=== PATIENT | male | born 1945 | race Caucasian/White ===

== ENCOUNTER 2022-03-01 10:50 | Outpatient (RCR) | payer MEDICARE, SELFPAY ==
--- NOTE | 2022-03-01 13:31 | PT.OPEX ---
PT [facility] [facility] Eval PT [facility] Outpatient Eval Start: 03/01/22 11:29 Freq: Status: Active Protocol: Document 03/01/22 13:16 CRISTI (Rec: 03/01/22 13:28 CRISTI [id number]) E-signed By Moe Nelson PT Physical Therapy Outpatient Evaluation Insurance Information Insurance Name Medicare B Medical Diagnosis Right hip OA Treating Diagnosis Right hip pain Decreased right hip mobility and strength Referring MD Urbina Subjective Subjective Pt. reports having progressive right hip OA with ongoing problems with pain and function. He is set up for a SHEFALI surgery on 03/09/22. He had a left SHEFALI prior and has done well with it. He lives with his in a multilevel home. He has a few step down to basement where his shower is. Bathroom is on 2nd floor but he will be using a beside commode to start with upon return home which went well with his left hip surgery. He has a shower chair, a cane and a walker at home. PMH includes COPD and a heart stent. Pain Comments mild/moderate Date of Surgery (If applicable) 03/09/22 Current Work Status Retired Preferred Name Axel Assessment Assessment/Impression Objectively, pt. demonstrates; ambulation with SE cane with mild limp currently; functional UE mobility and strength; limited right hip ROM due to OA; and decreased gluteal and quad strength. He will benefit from pre-op education on SHEFALI exercise protocol along with education in pre-op and post-op procedures including therapy program. Primary Functional Limitations walking, lifting, steps, squatting Plan of Care Rehabilitation Potential Excellent Physical Therapy Goals 1. Pt. will be independent with HEP for self maintenance in 8-12 weeks. 2. Pt. will demonstrate improved mobility and quad/ gluteal strength in 8-12 weeks . 3. Pt. will be able to ambulate without assistive device safely in 8-12 weeks. Coordination/Communication With Referral Source Treatment Plan/Direct Interventions Manual Therapy,Neuromuscular Re-ed,Self-Care/Home Management,Therapeutic Activities,Therapeutic Exercises Frequency/Duration 4-8 visits after re-evaluation following surgery on 03/09/22 . Patient Will Be Discharged From Therapy Independent w/HEP, Independently Progressing Evaluation Billing Complexity Low Certification Information Initial Certification Date 03/01/22 Ending Certification Date 05/24/22 Provider Signature Shows Agreement With POC & Medical Necessity Physician Signature & Date Requested Please Sign/Date Here Physician Comment/Change : Physician NPI Number #
== END 2022-04-30 14:28 | disposition home or self-care (01) ==
PROVIDERS: PCP Family Medicine; Visit Provider Orthopaedic Surgery
DX: M16.11 Unilateral primary osteoarthritis, right hip (principal); Z51.89 Encounter for other specified aftercare
CPT/HCPCS: 97110; 97161

== ENCOUNTER 2022-09-20 08:29 | Outpatient (CLI) | payer MEDICARE, OTHER, SELFPAY | END 2022-09-20 08:30 | disposition home or self-care (01) | PROVIDERS: PCP Family Medicine; Visit Provider Orthopaedic Surgery | DX: Z01.818 Encounter for other preprocedural examination (principal) | CPT/HCPCS: 36415; 86850; 86900; 86901 ==

== ENCOUNTER 2022-09-21 13:06 | Inpatient (IN) | payer MEDICARE, SELFPAY ==
[2022-09-21] VITALS (41 sets, daily range): BP systolic 95–150; BP diastolic 52–96; PULSE 58–88; RESP 12–21; TEMP 35.4–36.9; O2SAT 85–98; BMI 35.4
--- NOTE | 2022-09-21 | CRLHL7_ITS ---
For Patients: As a result of the Cures Act, medical imaging exams and procedure reports are released immediately into your electronic medical record. You may view this report before your referring provider. If you have questions, please contact your health care provider. Indication: Postop SHEFALI Technique: AP hip centered pelvis and lateral view right hip Findings/Impression: Hardware from a right total hip arthroplasty is in satisfactory position. Bone alignment is normal. No sign of acute fracture. Postop changes are within normal limits. Dictated by Robin Mohan MD @ 09/22/2022 11:38:42 AM (Electronically Signed)
[2022-09-21] MEDS: ACETAMINOPHEN 500 MG TABLET 1000 MG PO ×3 (08:03→22:38)
[2022-09-21] MEDS: CELECOXIB 200 MG CAPSULE PO (08:03)
[2022-09-21] MEDS: OXYCODONE (CR) 10 MG TAB.ER.12H PO (08:03)
[2022-09-21] MEDS: LACTATED RINGERS 1000 ML 1,000 ML 100 ML IV ×2 (08:05→10:46)
[2022-09-21] MEDS: MIDAZOLAM HCL 1 MG/ML inj IVP (08:10)
[2022-09-21] MEDS: fentaNYL 100 MCG/2 ML inj IVP (08:10)
--- NOTE | 2022-09-21 08:15 | CRLHL7_ITS ---
For Patients: As a result of the Cures Act, medical imaging exams and procedure reports are released immediately into your electronic medical record. You may view this report before your referring provider. If you have questions, please contact your health care provider. Indication: Hip replacement surgery Technique: AP hip fluoroscopic images. Fluoroscopy time 64.0 seconds. Findings/Impression: Hardware from a right total hip arthroplasty is in satisfactory position. Dictated by Robin Mohan MD @ 09/21/2022 11:03:19 AM (Electronically Signed)
--- NOTE | 2022-09-21 08:36 | SUR.PREOP ---
TIME?OUT:?0809 PT/RN/MDA?VERIFICATION?OF?SURGICAL?SITE,?PROCEDURE,?AND?CONSENT OBTAINED?PRIOR?TO?INVASIVE?PROCEDURE.
[2022-09-21] MEDS: CEFAZOLIN 2 GM INJ IVP (09:00)
[2022-09-21] MEDS: TRANEXAMIC ACID 100 MG/ML INJ 1000 MG IV (09:03)
--- NOTE | 2022-09-21 10:40 | P.ORPRC_ITS ---
Procedure Note Date of procedure: 09/21/22 Procedure: PREOPERATIVE DIAGNOSIS: Right hip osteoarthritis POSTOPERATIVE DIAGNOSIS: Right hip osteoarthritis NAME OF OPERATION: Right total hip arthroplasty SURGEON: Naseem Urbina MD HIGH MAN: Rebecca Marrero PA-C, Joan Trevino PA-C IMPLANTS: 1. [employer] Hubbell # 60 sector ingrowth cup 2. 36 x 60 +4 neutral polyethylene 3. Actis # 10 standard collared ingrowth stem 4. 36 + 1.5 cobalt chrome femoral head ANESTHESIA: General ESTIMATED BLOOD LOSS: 500 cc COMPLICATIONS: None SPECIMENS: None DRAINS: None PREOPERATIVE ANTIBIOTICS: Ancef 2 grams INDICATIONS: The patient is a 77-year-old with a longstanding history of severe, unrelenting right hip pain secondary to end-stage right hip osteoarthritis. Despite appropriate nonoperative management, including activity modification, use of an assist device, anti-inflammatories, [id number] pain medication, physical therapy and injections, they continue to have pain and disability. Operative intervention was offered. The risks, benefits and expected outcomes were discussed in detail. These included but were not limited to: Infection, bleeding, injury to blood vessel or nerve, venous thromboembolism. All questions were answered to their satisfaction. Use of an assistant media planner was necessary throughout the case for patient positioning and safety, soft tissue retraction and closure. PROCEDURE: The patient was placed supine on the [place] table. General anesthesia was administered. The assistant media planner made sure the patient was properly positioned. The right hip was prepped and draped in the usual sterile fashion. The image intensifier was brought in for a perfect AP pelvis and a perfect double tear drop AP view of each hip which were used for intraoperative templating with our fluoroscopic guide. An oblique incision was made 3 cm distal and 3 cm lateral to the anterior superior iliac spine. The assistant media planner retracted the soft tissues to protect them. Subcutaneous dissection was taken with electrocautery to the superficial fascia. The fascia was divided in line with the incision. Blunt dissection was carried medially to the tensor fascia brenda and sartorius interval. Deep dissection was carried with electrocautery. The circumflex vessels were cauterized and divided. The capsule was exposed and then divided in a T- fashion, tagged with #1 Ethibond sutures. Retractors were placed in the joint, held by the assistant media planner. The corkscrew was placed in the femoral head. The neck cut was made in the subcapital region. We made a second neck cut more distal. The napkin ring of bone was removed. The femoral head was removed intact. Acetabular retractors were placed, held by the assistant media planner. The labrum was sharply debrided. The capsule was released. The 43 mm reamer was used to the true medial wall. We then enlarged in 2 mm increments using the image intensifier for our reamer placement. We impacted the cup which had excellent purchase. We placed the hole eliminator and the polyethylene. Attention was then turned to the proximal femur. The limb was placed in 140 degrees of external rotation, maximum extension and adduction. A significant amount of time was spent releasing the capsule to allow us to deliver the femur into the wound and complete the femoral side safely. Retractors were held by the assistant media planner throughout the femoral preparation. The paper box cutter and canal finder were used. Broaches were used to a stable size. The calcar reamer was used. Trial components were placed. The hip was reduced and was found to be stable with appropriate soft tissue tension. Length and offset had been nicely restored using the image intensifier and our fluoroscopic guide. Trial components were removed. The stem was impacted. We placed the femoral head. Again, the hip was reduced and was found to be stable with appropriate soft tissue tension. Length and offset had been nicely restored. The assistant media planner did a three minute dilute Betadine solution soak. The assistant media planner irrigated the wound with 3 liters of normal saline via pulse lavage. The assistant media planner repaired the anterior capsule with a #1 Vicryl and our previously placed Ethibond sutures. The assistant media planner closed the fascia over the tensor fascia brenda with a #1 PDO Stratafix, subcutaneous tissues with 2-0 Vicryl, skin with a running 3-0 Stratafix and glue. A dry dressing was applied by the assistant media planner. Sponge and needle counts were correct x 2. The patient tolerated the procedure well; there were no apparent complications. They were awakened and extubated in the operating room, sent to the Post-Anesthesia Care Unit in satisfactory condition. PLAN: 1. The patient will be mobilized with physical therapy, weight-bearing as tolerates 2. Xarelto x 5 days then aspirin x 30 days will be used for DVT prophylaxis 3. The patient will be discharged once medically appropriate
--- NOTE | 2022-09-21 11:06 | W.PM.NB ---
Nerve Block Nerve Block Time Seen by Provider: 08:20 Date Seen: 09/21/22 Type of block requested by surgeon for post-operative analgesia: KIMBERLI/LFCN Side: right Time out performed: Yes Verification of patient name: Yes Verification of date of : Yes Site marking: site marked Name of person performing procedure: Sterling Continuous monitoring Was continuous monitoring of O2 sat, B/P, healthcare technician, recorded every 15 minutes?: Yes Procedure Checklist: sterile prep, needles and gloves Ultrasound guided. Images saved: Yes Medications given in 5ml increments after negative aspiration: Ropivicaine %: 0.5 mL: 30 Needle gauge: 20 Decadron (mg): 10 Precedex (mcg): 25 Patient tolerated procedure well: Yes Additional comments: Needle noted below psoas tendon needle noted adjacent to LFCN Block Charges Block Charge (with Pro Fee): Other Periph Nerve Block Use of Ultrasound Machine for Block: Yes- US Guidance/pain block
--- NOTE | 2022-09-21 11:07 | W.ANESCHARGE ---
Anesthesia Charges Start Date/Time Anesthesia Start Date: 09/21/22 Anesthesia Start Time: 08:50 Stop Date/Time Anesthesia Stop Date: 09/21/22 Anesthesia Stop Time: 12:06 Summary Extremes of Age - Over 70 or under 1: MDA
--- NOTE | 2022-09-21 12:31 | CRLHL7_ITS ---
For Patients: As a result of the Cures Act, medical imaging exams and procedure reports are released immediately into your electronic medical record. You may view this report before your referring provider. If you have questions, please contact your health care provider. INDICATION: Hypoxia. TECHNIQUE: Chest 1 views. COMPARISON: None. FINDINGS: Cardiovascular and mediastinum: Cardiomediastinal silhouette is within normal limits. Lungs and pleural spaces: Lungs are clear. No sign of pleural effusion. No pneumothorax. Bones and soft tissues: No significant findings. IMPRESSION: No acute cardiopulmonary process identified. Dictated by Aron Lopes MD @ 09/21/2022 1:48:30 PM (Electronically Signed)
[2022-09-21] MEDS: ALBUTEROL SULFATE 2.5 MG/3 ML VIAL.NEB NEB (12:41)
--- NOTE | 2022-09-21 13:27 | W.ANESCHARGE ---
Anesthesia Charges Start Date/Time Anesthesia Start Date: 09/21/22 Anesthesia Start Time: 08:50 Stop Date/Time Anesthesia Stop Date: 09/21/22 Anesthesia Stop Time: 12:06
--- NOTE | 2022-09-21 13:31 | REH.PT ---
PT POD0 eval held d/t pt staying in PACU on BiPAP.
[2022-09-21 13:57] LABS: Base Excess ABG 3.1 mmol/L (-3.0-3.0); Carboxyhemoglobin* 1.4 % (0.0-5.0); HCO3 ABG 33 mmol/L (21-28); Oxygen Saturation ABG 89 % (92-100); PO2 ABG 63.7 mmHG (80-105); TCO2 ABG 31 mmol/l (21-30)
[2022-09-21 14:02] LABS: ABG PCO2 77 mmHG (35-45); pH ABG 7.24 (7.35-7.45)
[2022-09-21] MEDS: FUROSEMIDE 10 MG/ML inj 20 MG IVP (14:02)
--- NOTE | 2022-09-21 14:12 | PM.IMCN1 ---
Date of Consult Patient: Mary Patient Consult date: 09/21/22 Requesting Physician: Orthopedics Primary Care Provider: Jack Mullen MD Consult Narrative Reason for consult: Postop respiratory failure Narrative: Axel Cotter is a 77 year old male with history of coronary disease and COPD who underwent right total hip arthroplasty performed by Dr. Urbina. There were no operative complications. Estimated blood loss of [address] Urbina is requested management of medical problems following surgery. Preop as he was sedated for surgery he was hypoventilating. In recovery after surgery patient was found to be hypoventilating and hypoxic. He was hard to arouse and received Narcan which was of no significant benefit. He was placed on BiPAP and I am seeing him in recovery for evaluation of respiratory failure. He has a history of coronary artery disease. He had a stent placed in his circumflex in 2007 associated with an inferior STEMI. He has COPD and is on Spiriva and DuoNebs and albuterol inhaler for this. He does not report any recent new respiratory problems but does report chronic exertional dyspnea as well as chronic fatigue and chronic sleepiness. He is known to snore and has never been evaluated for sleep apnea. Review of Systems Narrative: Longstanding fatigue, sleepiness and exertional dyspnea. No recent fever cough or chest pain. [facility] Medical History (Updated 09/21/22 @ 14:36 by Xavi Rose MD) ELISSA (obstructive sleep apnea) ?G47.33 - Obstructive sleep apnea (adult) (pediatric) (ICD-10) Hx of coronary angiogram ?Z98.890 - Other specified postprocedural states (ICD-10) Hypertension ?I10 - Essential (primary) hypertension (ICD-10) Heart attack ?I21.9 - Acute myocardial infarction, unspecified (ICD-10) Coronary artery disease ?I25.10 - Atherosclerotic heart disease of [place] coronary artery without angina pectoris (ICD-10) Depression ?F32.A - Depression, unspecified (ICD-10) COPD (chronic obstructive pulmonary disease) ?J44.9 - Chronic obstructive pulmonary disease, unspecified (ICD-10) Arthritis ?M19.90 - Unspecified osteoarthritis, unspecified site (ICD-10) Surgical History Hx of cataract extraction ?Z98.49 - Cataract extraction status, unspecified eye (ICD-10) H/O hand surgery ?Z98.890 - Other specified postprocedural states (ICD-10) H/O heart artery stent ?Z95.5 - Presence of coronary angioplasty implant and graft (ICD-10) 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) ?Z96.642 - Presence of left artificial hip joint (ICD-10) Family History Brother Parkinson disease Mother Colon cancer Stomach cancer Sister High blood pressure Father Myocardial infarction Social History Smoking Status: Former smoker What tobacco products do you use: cigarettes Smoking packs per day: 1 Smoking cigarettes per day: 20.0 Years smoked: 30 Smoking pack-years: 30.00 Smoking quit date/years: <= 15 years ago Do you use any of these nicotine containing products: None Second hand tobacco smoke exposure: No How often do you have a drink containing alcohol: never AUDIT-C Alcohol total score: 0 Non-prescribed substance use: denies use Caffeine: Yes (coffee, 1 cup/AM) service: Yes Meds Home Medications and Allergies Home Medications Medication Instructions Recorded Confirmed Type albuterol 90 mcg/actuation aerosol 2 spray inhalation Q4H PRN 12/04/21 09/21/22 History inhaler atorvastatin 80 mg tablet 80 mg PO HS 12/04/21 09/21/22 History nitroglycerin 0.4 mg sublingual 0.4 mg sublingual Q5M PRN 12/04/21 09/21/22 History tablet aspirin 81 mg tablet,delayed 81 mg PO DAILY 09/21/22 09/21/22 History release (Adult Aspirin Regimen) ipratropium 0.5 mg-albuterol 3 mg 3 ml inhalation QID PRN 09/21/22 09/21/22 History (2.5 mg base)/3 mL nebulization soln metoprolol tartrate 50 mg tablet 50 mg PO BID 09/21/22 09/21/22 History omeprazole magnesium 20 mg 20 mg PO DAILY 09/21/22 09/21/22 History tablet,delayed release (Prilosec OTC) tiotropium bromide 18 mcg capsule 1 cap inhalation DAILY 09/21/22 09/21/22 History with inhalation device (Spiriva with HandiHaler) Allergies Allergy/AdvReac Type Severity Reaction Status Date / Time No Known Drug Allergies Allergy Verified 09/21/22 07:06 Exam Narrative: Exam Narrative: Initially seen in PACU. On BiPAP. Sleepy. Hypoventilating. Arouses to voice but falls asleep immediately. BiPAP shows good tidal volumes when he does initiate of breath. Blood pressure and pulse are normal. Eyes normal. Respirations are clear to auscultation. No wheezing rales or rhonchi. He has diminished breath sounds in all lung chun. Cardiovascular: S1, S2, regular rate and rhythm. No murmur gallop or rub. Abdomen: Bowel sounds active. Abdomen is soft without tenderness or mass. Extremities without significant edema. Good peripheral perfusion. Const: Vital Signs, click to edit/add: Vital Signs - 24 hr 09/21/22 07:27 09/21/22 08:10 09/21/22 08:15 Temperature 98.0 F Pulse Rate 70 65 67 Pulse Rate [Left P ulse Oximeter] Respiratory Rate 16 16 16 Blood Pressure 150/83 H 127/96 H 136/88 Blood Pressure [Le ft Arm] Pulse Oximetry 94 94 85 L Oxygen Delivery Me thod Room Air Nasal Cannula Nasal Cannula Oxygen Flow Rate 2 2 Fraction of Inspir ed Oxygen 09/21/22 08:16 09/21/22 08:20 09/21/22 08:25 Temperature Pulse Rate 64 66 67 Pulse Rate [Left P ulse Oximeter] Respiratory Rate 12 12 Blood Pressure 127/88 124/88 Blood Pressure [Le ft Arm] Pulse Oximetry 93 93 98 Oxygen Delivery Me thod OxyMask OxyMask OxyMask Oxygen Flow Rate 10 10 10 Fraction of Inspir ed Oxygen 09/21/22 12:03 09/21/22 12:08 09/21/22 12:13 Temperature 97.9 F Pulse Rate 76 72 75 Pulse Rate [Left P ulse Oximeter] Respiratory Rate 12 12 12 Blood Pressure 121/72 125/66 110/55 L Blood Pressure [Le ft Arm] Pulse Oximetry 93 91 89 Oxygen Delivery Me thod BiPAP BiPAP BiPAP Oxygen Flow Rate Fraction of Inspir ed Oxygen 09/21/22 12:18 09/21/22 12:23 09/21/22 12:28 Temperature Pulse Rate 58 L 65 67 Pulse Rate [Left P ulse Oximeter] Respiratory Rate 12 12 12 Blood Pressure 125/69 125/69 120/57 L Blood Pressure [Le ft Arm] Pulse Oximetry 89 89 89 Oxygen Delivery Me thod BiPAP BiPAP BiPAP Oxygen Flow Rate Fraction of Inspir ed Oxygen 09/21/22 12:33 09/21/22 12:38 09/21/22 12:43 Temperature Pulse Rate 62 69 69 Pulse Rate [Left P ulse Oximeter] Respiratory Rate 12 12 12 Blood Pressure 113/52 L 121/74 115/71 Blood Pressure [Le ft Arm] Pulse Oximetry 89 89 89 Oxygen Delivery Me thod BiPAP BiPAP BiPAP Oxygen Flow Rate Fraction of Inspir ed Oxygen 09/21/22 12:48 09/21/22 12:53 09/21/22 12:56 Temperature Pulse Rate 64 64 Pulse Rate [Left P ulse Oximeter] Respiratory Rate 12 12 Blood Pressure 120/70 114/65 Blood Pressure [Le ft Arm] Pulse Oximetry 89 89 Oxygen Delivery Me thod BiPAP BiPAP Oxygen Flow Rate Fraction of Inspir ed Oxygen 09/21/22 12:58 09/21/22 13:03 09/21/22 13:08 Temperature Pulse Rate 65 61 66 Pulse Rate [Left P ulse Oximeter] Respiratory Rate 12 12 12 Blood Pressure 114/65 115/65 112/67 Blood Pressure [Le ft Arm] Pulse Oximetry 89 89 89 Oxygen Delivery Me thod BiPAP BiPAP BiPAP Oxygen Flow Rate Fraction of Inspir ed Oxygen 09/21/22 13:13 09/21/22 13:18 09/21/22 13:23 Temperature Pulse Rate 66 62 60 Pulse Rate [Left P ulse Oximeter] Respiratory Rate 12 12 12 Blood Pressure 117/73 114/70 107/68 Blood Pressure [Le ft Arm] Pulse Oximetry 89 90 90 Oxygen Delivery Me thod BiPAP BiPAP BiPAP Oxygen Flow Rate Fraction of Inspir ed Oxygen 09/21/22 13:28 09/21/22 14:05 Temperature 97.2 F L 95.8 F L Pulse Rate 62 Pulse Rate [Left P ulse Oximeter] 65 Respiratory Rate 12 14 Blood Pressure 110/66 Blood Pressure [Le ft Arm] 108/58 L Pulse Oximetry 92 89 Oxygen Delivery Me thod BiPAP BiPAP Oxygen Flow Rate Fraction of Inspir ed Oxygen Documenting provider has reviewed patient's vital signs: yes Assessment and Plan Assessment and plan (1) Ventilatory failure: Problem comment: Patient's ventilatory failure is likely a combination of factors. Patient likely has undiagnosed sleep apnea based on history and findings today. He has underlying COPD and medications received in surgery may cause respiratory depression as well. Narcan did not reverse this respiratory depression however. Postoperatively will need sleep study. Caution with opioid pain medicines. Monitoring in the hospital for recurrent ventilatory failure. Status: Acute (2) ELISSA (obstructive sleep apnea): Problem comment: Highly likely that sleep apnea is present. When he recovers from surgery he should have a sleep study. Status: Suspected (3) Coronary artery disease: Problem comment: Monitor for heart disease contributing to his respiratory failure Status: Acute (4) COPD (chronic obstructive pulmonary disease): Problem comment: Treat COPD with inhaled bronchodilators. Status: Acute (5) Osteoarthritis of right hip: Problem comment: [place] grade 3 right hip osteoarthritis Status: Chronic Plan Patient is admitted to the hospital for right hip arthroplasty and postoperative recovery. Admitted to CCU for ventilatory failure requiring new application of BiPAP. Treat COPD. Restrict oxygen to treat hypercapnia. Anticipate routine physical therapy. Caution with opioid pain medications causing respiratory depression.
[2022-09-21] MEDS: HYDROmorphone 0.5 mg/0.5 ml inj IVP (14:33)
[2022-09-21 15:18] LABS: HCO3 VBG 32 mmol/L (21-28); PCO2 VBG 53 mmHG (40-50); PO2 VBG 30.9 mmHG (25-47)
[2022-09-21 15:20] LABS: Basophils Absolute Auto 0.01 K/uL (0.00-0.30); Basophils Percent Auto 0.1 % (0.0-3.0); Hematocrit 41.2 % (37.0-53.0); Hemoglobin* 12.8 gm/dL (13.5-17.5); Lymphocytes Percent Auto 4.6 % (20-44); Mean Corpuscular HGB Conc 31 gm/dL (32-36); Mean Corpuscular Hemoglobin 31 pg (26-34); Mean Corpuscular Volume 99 fL (80-100); Monocytes Percent Auto 4.6 % (0.0-11.0); Neutrophils Percent Auto 89.7 % (42.0-72.0); Platelet Count* 196 K/uL (140-440); RDW Coefficient of Variation % 13.8 % (11.5-15.5); Red Blood Count 4.17 m/uL (4.30-5.90); White Blood Count* 9.56 K/uL (4.50-11.00)
[2022-09-21 15:24] LABS: Slide Review Reflex No
[2022-09-21] MEDS: OXYCODONE 5 MG TABLET PO ×2 (15:26→20:59)
[2022-09-21] MEDS: CEFAZOLIN 2 GM in 0.9 % SODIUM CHLORIDE Mini-bag 100 ML IVPB ×2 (15:27→23:51)
--- NOTE | 2022-09-21 15:53 | PC.NURSE ---
end of shift/. pt is a unit pt. went to pacu and brought pt back on Bi-pap. he was taken to ccu3. he is alert and orientated but sleepy. Iv is patent. dressing C/D/I/ active ice. pain was 0-7 he got 0.5 IVP Dilaudid and later 10 mg oxy after eating. teds and plexis are on. Carson was placed in pacu. Dr Rose was in to see. Tele shows NSR. BI-PAP is on except for eating, drinking so far. ABGs where done and Later VBG,s RT Mariusz was updated with results and we are to keep settings the same and will check blood gas in the am. and son are here and are loving and caring. he is more aware and alert the longer he has been wearing his Bi-pap. he is drinking with no problems. he is a fall risk and alarms are on. VSS. he is on 21% on Bi-pap If he needs o2 we are to call .
[2022-09-21 15:57] LABS: Troponin I* < 0.01 ng/mL (0.01-0.04)
[2022-09-21] MEDS: ATORVASTATIN CALCIUM 40 MG TABLET 80 MG PO (20:57)
[2022-09-21] MEDS: IPRAT-ALBUT 0.5-2.5 MG/3 ML NEB 1 NEB IH (20:57)
[2022-09-21] MEDS: METOPROLOL TARTRATE 50 MG TABLET PO (20:58)
[2022-09-21] MEDS: SENNOSIDES 1 TAB TABLET 2 TAB PO (20:58)
[2022-09-21] MEDS: SODIUM CHLORIDE 0.9 % (FLUSH) 10 ML SYRINGE 5 ML IVF (20:59)
--- NOTE | 2022-09-21 23:47 | PC.NURSE ---
Shift Note [id number]: Pt friendly and cooperative, able to verbalize needs. Couple of soft pressures 90's/60's, pt remains asymptomatic and able to stand and pivot to chair with assist x2. SpO2 97-99% on Bipap, pt tolerating well. He did request a break from wearing it this evening and MD okayed. SpO2 remained 88-91% on RA with occasional brief desaturations to 85% during conversation/eating. Pt diligent with IS and aerobika use while off Bipap, IS to 2500 with good technique. Increased coughing this evening with some intermittent thick, yellow sputum production. Pt able to expectorate independently. Denies pain. Surgical dressing C,D,&I with active ice in place.
[2022-09-22] VITALS (13 sets, daily range): BP systolic 104–142; BP diastolic 47–95; PULSE 54–71; RESP 16–20; TEMP 36.2–37; O2SAT 90–95
[2022-09-22] MEDS: LACTATED RINGERS 1000 ML 1,000 ML 75 ML IV ×2 (01:29→15:26)
[2022-09-22] MEDS: ACETAMINOPHEN 500 MG TABLET 1000 MG PO ×4 (04:11→22:58)
[2022-09-22] MEDS: OXYCODONE 5 MG TABLET PO ×5 (04:11→21:16)
--- NOTE | 2022-09-22 04:30 | PC.NURSE ---
PATIENT PLEASANT AND COOPERATIVE, ALERT AND ORIENTED, RESTING IN CHAIR, PATIENT OFF AND ON BIPAP THROUGHOUT NIGHT, PATIENT NEEDING BREAKS FROM THE MASK I HAVE A HEADACHE. RESOLVED WITH A BREAK FROM THE BIPAP MASK, OTHER BREAKS GIVEN FOR FOOD & WATER & PATIENT REQUEST, USING INCENTIVE SPIROMETER IND IN ROOM TO 2500 & NO COUGH NOTED AFTER USE, DRESSING TO RIGHT HIP CDI, ACTIVE ICE TO SITE, PEDAL PULSES PRESENT, TOLERATING REGULAR DIET REQUESTING A JELLO IN THE MIDDLE OF THE NIGHT, JAJA DIAMOND, TELE SHOWING NSR, RATING PAIN MINIMAL IN RIGHT HIP 0-1/10 BEING MANAGED WITH PRN OXYCODONE AND SCHEDULED TYLENOL.
[2022-09-22] MEDS: OMEPRAZOLE 20 MG CAPSULE DR PO (06:05)
[2022-09-22 07:06] LABS: HCO3 VBG 31 mmol/L (21-28); PCO2 VBG 48 mmHG (40-50); pH VBG 7.412 (7.32-7.43)
[2022-09-22 07:10] LABS: Basophils Percent Auto 0.1 % (0.0-3.0); Hematocrit 35.4 % (37.0-53.0); Hemoglobin* 11.4 gm/dL (13.5-17.5); Immature Granulocytes Pct Auto 0.2 %; Lymphocytes Percent Auto 10.6 % (20-44); Mean Corpuscular HGB Conc 32 gm/dL (32-36); Mean Corpuscular Hemoglobin 31 pg (26-34); Mean Corpuscular Volume 96 fL (80-100); Monocytes Percent Auto 9.1 % (0.0-11.0); Platelet Count* 198 K/uL (140-440); RDW Coefficient of Variation % 13.7 % (11.5-15.5)
[2022-09-22 07:18] LABS: Slide Review Reflex No
[2022-09-22 07:25] LABS: Potassium* 4.4 mmol/L (3.6-5.1); Sodium* 133 mmol/L (135-149)
[2022-09-22 07:28] LABS: Creatinine* 1.5 mg/dL (0.5-1.5); Estimated Glomerular Filt Rate 48 ml/min
[2022-09-22 07:29] LABS: Blood Urea Nitrogen* 31 mg/dL (7-30)
--- NOTE | 2022-09-22 08:32 | P.ORPN_ITS ---
Subjective Subjective Time Seen by Provider: 07:20 Date Seen: 09/22/22 Principal diagnosis: Status post right hip replacement Interval history: Axel is comfortable this morning. Post surgery he was hypo ventilating with CO2 retention. He has a history of COPD and likely sleep apnea. Ortho Exam Narrative Exam Narrative: Alert and oriented x3. Patient is in no acute distress. Converses without labored breathing. Hearing is grossly intact. Ambulates with a Walker. Examination of the right hip shows small bruise. Dressing is intact. No erythema or warmth or sign of infection. CMS is intact right lower extremity pain bilateral calves are soft and nontender. No foot drop. Good quad strength. Const Vital Signs, click to edit/add: Vital Signs - 24 hr 09/21/22 12:03 09/21/22 12:08 09/21/22 12:13 Temperature 97.9 F Pulse Rate 76 72 75 Pulse Rate [Left Pulse Oximeter] Respiratory Rate 12 12 12 Blood Pressure 121/72 125/66 110/55 L Blood Pressure [Left Arm] Pulse Oximetry 93 91 89 Oxygen Delivery Method BiPAP BiPAP BiPAP Oxygen Flow Rate Fraction of Inspired Oxygen 09/21/22 12:18 09/21/22 12:23 09/21/22 12:28 Temperature Pulse Rate 58 L 65 67 Pulse Rate [Left Pulse Oximeter] Respiratory Rate 12 12 12 Blood Pressure 125/69 125/69 120/57 L Blood Pressure [Left Arm] Pulse Oximetry 89 89 89 Oxygen Delivery Method BiPAP BiPAP BiPAP Oxygen Flow Rate Fraction of Inspired Oxygen 09/21/22 12:33 09/21/22 12:38 09/21/22 12:43 Temperature Pulse Rate 62 69 69 Pulse Rate [Left Pulse Oximeter] Respiratory Rate 12 12 12 Blood Pressure 113/52 L 121/74 115/71 Blood Pressure [Left Arm] Pulse Oximetry 89 89 89 Oxygen Delivery Method BiPAP BiPAP BiPAP Oxygen Flow Rate Fraction of Inspired Oxygen 09/21/22 12:48 09/21/22 12:53 09/21/22 12:56 Temperature Pulse Rate 64 64 Pulse Rate [Left Pulse Oximeter] Respiratory Rate 12 12 Blood Pressure 120/70 114/65 Blood Pressure [Left Arm] Pulse Oximetry 89 89 Oxygen Delivery Method BiPAP BiPAP Oxygen Flow Rate Fraction of Inspired Oxygen 09/21/22 12:58 09/21/22 13:03 09/21/22 13:08 Temperature Pulse Rate 65 61 66 Pulse Rate [Left Pulse Oximeter] Respiratory Rate 12 12 12 Blood Pressure 114/65 115/65 112/67 Blood Pressure [Left Arm] Pulse Oximetry 89 89 89 Oxygen Delivery Method BiPAP BiPAP BiPAP Oxygen Flow Rate Fraction of Inspired Oxygen 09/21/22 13:13 09/21/22 13:18 09/21/22 13:23 Temperature Pulse Rate 66 62 60 Pulse Rate [Left Pulse Oximeter] Respiratory Rate 12 12 12 Blood Pressure 117/73 114/70 107/68 Blood Pressure [Left Arm] Pulse Oximetry 89 90 90 Oxygen Delivery Method BiPAP BiPAP BiPAP Oxygen Flow Rate Fraction of Inspired Oxygen 09/21/22 13:28 09/21/22 13:50 09/21/22 14:00 Temperature 97.2 F L 95.8 F L 95.8 F L Pulse Rate 62 65 Pulse Rate [Left Pulse Oximeter] 65 Respiratory Rate 12 14 14 Blood Pressure 110/66 Blood Pressure [Left Arm] 108/58 L 108/63 Pulse Oximetry 92 91 Oxygen Delivery Method BiPAP BiPAP Room Air BiPAP Oxygen Flow Rate 0 0 Fraction of Inspired Oxygen 09/21/22 14:00 09/21/22 14:05 09/21/22 14:15 Temperature 95.8 F L Pulse Rate Pulse Rate [Left Pulse Oximeter] 60 65 59 L Respiratory Rate 14 18 Blood Pressure Blood Pressure [Left Arm] 108/58 L 104/53 L Pulse Oximetry 89 90 Oxygen Delivery Method BiPAP BiPAP Oxygen Flow Rate 0 Fraction of Inspired Oxygen 09/21/22 14:20 09/21/22 14:20 09/21/22 14:55 Temperature Pulse Rate 63 Pulse Rate [Left Pulse Oximeter] Respiratory Rate Blood Pressure Blood Pressure [Left Arm] Pulse Oximetry Oxygen Delivery Method Room Air BiPAP Oxygen Flow Rate Fraction of Inspired Oxygen 21 21 09/21/22 15:00 09/21/22 15:00 09/21/22 15:02 Temperature 96.3 F L Pulse Rate 58 L Pulse Rate [Left Pulse Oximeter] 77 59 L Respiratory Rate 20 20 Blood Pressure Blood Pressure [Left Arm] 103/65 Pulse Oximetry 88 Oxygen Delivery Method BiPAP Oxygen Flow Rate 0 Fraction of Inspired Oxygen 09/21/22 15:21 09/21/22 16:01 09/21/22 16:30 Temperature 96.3 F L 96.7 F L Pulse Rate Pulse Rate [Left Pulse Oximeter] 64 62 63 Respiratory Rate 20 17 21 Blood Pressure Blood Pressure [Left Arm] 99/66 107/77 95/67 Pulse Oximetry 86 L 96 94 Oxygen Delivery Method BiPAP BiPAP BiPAP Oxygen Flow Rate 0 0 0 Fraction of Inspired Oxygen 09/21/22 17:30 09/21/22 18:30 09/21/22 19:00 Temperature 97.6 F 97.8 F Pulse Rate Pulse Rate [Left Pulse Oximeter] 71 71 74 Respiratory Rate 20 20 20 Blood Pressure Blood Pressure [Left Arm] 121/72 110/81 Pulse Oximetry 93 96 Oxygen Delivery Method Room Air BiPAP Oxygen Flow Rate 0 Fraction of Inspired Oxygen 09/21/22 19:30 09/21/22 20:30 09/21/22 22:00 Temperature 98.2 F 98.4 F Pulse Rate Pulse Rate [Left Pulse Oximeter] 71 88 67 Respiratory Rate 20 20 20 Blood Pressure Blood Pressure [Left Arm] 124/65 117/94 H 113/62 Pulse Oximetry 97 90 91 Oxygen Delivery Method BiPAP Room Air Room Air Oxygen Flow Rate 0 0 0 Fraction of Inspired Oxygen 09/21/22 23:00 09/21/22 23:00 09/22/22 00:00 Temperature 97.9 F Pulse Rate 65 Pulse Rate [Left Pulse Oximeter] 61 Respiratory Rate 16 16 Blood Pressure Blood Pressure [Left Arm] 107/61 Pulse Oximetry 91 Oxygen Delivery Method Room Air Oxygen Flow Rate 0 Fraction of Inspired Oxygen 09/22/22 02:00 09/22/22 03:00 09/22/22 04:00 Temperature 97.9 F 97.8 F Pulse Rate Pulse Rate [Left Pulse Oximeter] 59 L 61 Respiratory Rate 16 16 16 Blood Pressure Blood Pressure [Left Arm] 104/47 L Pulse Oximetry 91 95 Oxygen Delivery Method Room Air Room Air Oxygen Flow Rate 0 Fraction of Inspired Oxygen 09/22/22 06:00 09/22/22 07:13 09/22/22 07:45 Temperature 97.8 F 97.8 F Pulse Rate 54 L Pulse Rate [Left Pulse Oximeter] 57 L 60 Respiratory Rate 20 20 Blood Pressure Blood Pressure [Left Arm] 112/71 132/75 Pulse Oximetry 92 92 Oxygen Delivery Method BiPAP Room Air BiPAP Oxygen Flow Rate 0 0 Fraction of Inspired Oxygen 21 21 09/22/22 07:45 Temperature Pulse Rate Pulse Rate [Left Pulse Oximeter] 60 Respiratory Rate 20 Blood Pressure Blood Pressure [Left Arm] Pulse Oximetry Oxygen Delivery Method Oxygen Flow Rate Fraction of Inspired Oxygen Assessment and Plan Assessment and plan (1) Ventilatory failure: Problem details: Patient's ventilatory failure is likely a combination of factors. Patient likely has undiagnosed sleep apnea based on history and findings today. He has underlying COPD and medications received in surgery may cause respiratory depre ssion as well. Narcan did not reverse this respiratory depression however. Postoperatively will need sleep study. Caution with opioid pain medicines. Monitoring in the hospital for recurrent ventilatory failure. Status: Acute (2) ELISSA (obstructive sleep apnea): Problem details: Highly likely that sleep apnea is present. When he recovers from surgery he should have a sleep study. Status: Suspected (3) Coronary artery disease: Problem details: Monitor for heart disease contributing to his respiratory failure Status: Acute (4) COPD (chronic obstructive pulmonary disease): Problem details: Treat COPD with inhaled bronchodilators. Status: Acute (5) Status post total hip replacement, right: Status: Acute Plan Plan for discharge is today to home if they meet discharge criteria. he may stay another night due to observation of CO2 retention. Caution with narcotics. DVT prophylaxis includes Xarelto 10 mg daily for total of 5 days, then aspirin 81 mg twice daily for 30 days, Tobias stockings x1 month may remove for 1 hr per day, frequent ambulation Remove dressing 1 week. Observe wound and phone Orthopedics with any questions or concerns Use Ice on operative hip unrestricted. Return to clinic in 1 week with PA for a wound check Return to clinic in [address] Urbina Minimize narcotic use. Wean off and discontinue soon as possible. Activities as tolerated. No strenuous activity. Attend outpt PT
[2022-09-22] MEDS: IPRAT-ALBUT 0.5-2.5 MG/3 ML NEB 1 NEB IH ×3 (08:52→21:15)
[2022-09-22] MEDS: SENNOSIDES 1 TAB TABLET 2 TAB PO ×2 (08:53→21:15)
[2022-09-22] MEDS: METOPROLOL TARTRATE 50 MG TABLET PO ×2 (08:53→21:16)
[2022-09-22] MEDS: RIVAROXABAN 10 MG TABLET PO (08:53)
--- NOTE | 2022-09-22 15:05 | PM.IMPN1 ---
Progress Note: A&P Assessment and plan (1) Ventilatory failure: Problem details: Ventilatory failure postoperatively due to combination of anesthesia and sedation along with CO2 retention related to COPD and probable sleep apnea. Managed with pressure support with BiPAP. Not requiring oxygen. Now resolved. Will observe to see if he can breathe well overnight without requiring BiPAP or CPAP. Avoid supplemental oxygen. Status: Acute (2) ELISSA (obstructive sleep apnea): Problem details: Highly likely that sleep apnea is present. When he recovers from surgery he should have a sleep study. Status: Suspected (3) Coronary artery disease: Problem details: Monitor for heart disease contributing to his respiratory failure. No symptoms of coronary disease Status: Acute (4) COPD (chronic obstructive pulmonary disease): Problem details: Treat COPD with inhaled bronchodilators. Does not appear to be a COPD exacerbation Status: Acute (5) Status post total hip replacement, right: Problem details: Doing fairly well Status: Acute Plan Continue in hospital for 1 more day of observation in light of ongoing need for opioid pain medicines in the context of ventilatory failure and CO2 narcosis yesterday. I think he can be safely discharged to home tomorrow if he is able to manage at night without CPAP or BiPAP Time Spent With Patient Total time spent: Total time spent today is 40 minutes, 30 minutes in coordination of care discussing with patient, his and other providers management of ventilatory failure, sleep apnea and postoperative care after hip surgery Subjective Date Seen: 09/22/22 Interval history: 77-year-old male admitted to the hospital for right total hip arthroplasty. Procedures performed without complications. He did however have complications related to anesthesia. Postoperatively he was hypoventilating and quite sedated. This was felt to be due to CO2 narcosis. Likely a combination of sedation from anesthesia plus undiagnosed sleep apnea and underlying COPD cause this. This was managed with BiPAP and stopping supplemental oxygen. With this he had return to normal mental status. Overnight he did use the BiPAP for much the night and slept fairly well. This morning he is off of BiPAP and breathing without difficulties. His blood gas has corrected his acidosis as well. Patient describes significant history of daytime sleepiness and fatigue. notes that he does have snoring. He is strongly urged to get outpatient sleep evaluation for this. He reports his pain is fairly well controlled. he has not yet had physical therapy to evaluate his mobility. Exam Narrative: Exam Narrative: He is alert and appears in no distress. Breathing is unlabored. He has diminished breath sounds without wheezing rales or rhonchi. Cardiovascular: S1, S2, regular rate and rhythm. Abdomen is soft without tenderness or mass. Extremities without edema. Hip is with minimal bruising. Const: Vital Signs, click to edit/add: Vital Signs - 24 hr 09/21/22 15:21 09/21/22 16:01 09/21/22 16:30 Temperature 96.3 F L 96.7 F L Pulse Rate Pulse Rate [Left P ulse Oximeter] 64 62 63 Respiratory Rate 20 17 21 Blood Pressure [Le ft Arm] 99/66 107/77 95/67 Pulse Oximetry 86 L 96 94 Oxygen Delivery Me thod BiPAP BiPAP BiPAP Oxygen Flow Rate 0 0 0 Fraction of Inspir ed Oxygen 09/21/22 17:30 09/21/22 18:30 09/21/22 19:00 Temperature 97.6 F 97.8 F Pulse Rate Pulse Rate [Left P ulse Oximeter] 71 71 74 Respiratory Rate 20 20 20 Blood Pressure [Le ft Arm] 121/72 110/81 Pulse Oximetry 93 96 Oxygen Delivery Me thod Room Air BiPAP Oxygen Flow Rate 0 Fraction of Inspir ed Oxygen 09/21/22 19:30 09/21/22 20:30 09/21/22 22:00 Temperature 98.2 F 98.4 F Pulse Rate Pulse Rate [Left P ulse Oximeter] 71 88 67 Respiratory Rate 20 20 20 Blood Pressure [Le ft Arm] 124/65 117/94 H 113/62 Pulse Oximetry 97 90 91 Oxygen Delivery Me thod BiPAP Room Air Room Air Oxygen Flow Rate 0 0 0 Fraction of Inspir ed Oxygen 09/21/22 23:00 09/21/22 23:00 09/22/22 00:00 Temperature 97.9 F Pulse Rate 65 Pulse Rate [Left P ulse Oximeter] 61 Respiratory Rate 16 16 Blood Pressure [Le ft Arm] 107/61 Pulse Oximetry 91 Oxygen Delivery Me thod Room Air Oxygen Flow Rate 0 Fraction of Inspir ed Oxygen 09/22/22 02:00 09/22/22 03:00 09/22/22 04:00 Temperature 97.9 F 97.8 F Pulse Rate Pulse Rate [Left P ulse Oximeter] 59 L 61 Respiratory Rate 16 16 16 Blood Pressure [Le ft Arm] 104/47 L Pulse Oximetry 91 95 Oxygen Delivery Me thod Room Air Room Air Oxygen Flow Rate 0 Fraction of Inspir ed Oxygen 09/22/22 06:00 09/22/22 07:13 09/22/22 07:45 Temperature 97.8 F 97.8 F Pulse Rate 54 L Pulse Rate [Left P ulse Oximeter] 57 L 60 Respiratory Rate 20 20 Blood Pressure [Le ft Arm] 112/71 132/75 Pulse Oximetry 92 92 Oxygen Delivery Me thod BiPAP Room Air BiPAP Oxygen Flow Rate 0 0 Fraction of Inspir ed Oxygen 21 21 09/22/22 07:45 09/22/22 11:30 Temperature 97.6 F Pulse Rate Pulse Rate [Left P ulse Oximeter] 60 58 L Respiratory Rate 20 16 Blood Pressure [Le ft Arm] 127/66 Pulse Oximetry 92 Oxygen Delivery Me thod Room Air BiPAP Oxygen Flow Rate Fraction of Inspir ed Oxygen Documenting provider has reviewed patient's vital signs: yes Labs Labs: Laboratory Results - last 24 hr 09/21/22 09/22/22 15:14 06:41 WBC 9.56 13.10 H RBC 4.17 L 3.70 L Hgb 12.8 L 11.4 L Hct 41.2 35.4 L MCV 99 96 MCH 31 31 MCHC 31 L 32 RDW Coeff of Emilee 13.8 13.7 Plt Count 196 198 Neut % (Auto) 89.7 H 80.0 H Lymph % (Auto) 4.6 L 10.6 L [place] % (Auto) 4.6 9.1 Eos % (Auto) 0.0 0.0 Baso % (Auto) 0.1 0.1 Neut # (Auto) 8.60 H 10.50 H Lymph # (Auto) 0.40 L 1.40 [place] # (Auto) 0.40 1.20 H Eos # (Auto) 0.00 0.00 Baso # (Auto) 0.01 0.00 VBG pH 7.390 7.412 VBG pCO2 53 H 48 VBG pO2 30.9 32.0 VBG HCO3 32 H 31 H Sodium 133 L Potassium 4.4 BUN 31 H Creatinine 1.5 Estimated Creat Clear 46.70 Estimated GFR 48 Troponin I < 0.01 L
--- NOTE | 2022-09-22 15:53 | PC.NURSE ---
end of shift. ? pt is very pleasant. right hip pain, 1-08/04 he is getting po pain meds with relief. he was taken out of the unit this am. he is alert and orientated x3 and is not as sleepy today. ? Iv is patent. ? dressing C/D/I/? active ice. ?? teds and plexis are on.? Carson was d/c this am. and he voided 3 times since then. uo is low and encouraged fluids and md was updated. ? Dr Rose was in to see.? Tele shows NSR. ? ? is here and are loving and caring he is eating/ drinking and voiding with no problems.? he is a fall risk and alarms are on.? VSS.? no O2 tonight. 85% on RA is ok per md rsoe. we are to reposition use TCDB, IS and Aerobika, nebs and walking before we are to use Bi-pap.
--- NOTE | 2022-09-22 18:11 | PC.NURSE ---
End of Shift ([id number]): Patient pleasant and cooperative. Patient vitally stable, lungs clear, BS WNL, IV running LR at 75ml. Patient on room air sating in the low 90's. Patient fluids continued due to low urine output, patient encouraged to drink more fluids. Patient rates pain 4/10, and declined pain meds. Patient 1 assist, walker, gb. Active ice to patient's right hip, right hip dressing C/D/I.
[2022-09-22] MEDS: ATORVASTATIN CALCIUM 40 MG TABLET 80 MG PO (21:16)
[2022-09-23] VITALS: PULSE 72; RESP 24; O2SAT 92
[2022-09-23 04:21] VITALS: BP 112/60; PULSE 67; RESP 24; TEMP 36.7; O2SAT 93
[2022-09-23] MEDS: ACETAMINOPHEN 500 MG TABLET 1000 MG PO ×2 (04:23→10:19)
[2022-09-23] MEDS: OXYCODONE 5 MG TABLET PO ×2 (04:23→09:33)
--- NOTE | 2022-09-23 05:05 | PC.NURSE ---
[id number]: Patient pleasant and cooperative. Pain controlled with PRN Oxycodone and active ice. Dressing to R. hip C/D/I. O2 sats 87-92 on RA throughout noc lying in the L. lateral position. Patient independently using Aerobika and IS.
[2022-09-23] MEDS: OMEPRAZOLE 20 MG CAPSULE DR PO (06:51)
[2022-09-23 07:00] VITALS: PULSE 64
[2022-09-23 07:16] LABS: Basophils Absolute Auto 0.02 K/uL (0.00-0.30); Basophils Percent Auto 0.2 % (0.0-3.0); Eosinophils Absolute Auto 0.12 K/uL (0.00-0.50); Eosinophils Percent Auto 1.4 % (0.0-7.0); HCO3 VBG 35 mmol/L (21-28); Hematocrit 33.9 % (37.0-53.0); Hemoglobin* 10.7 gm/dL (13.5-17.5); Lymphocytes Absolute Auto 1.77 K/uL (0.90-2.90); Lymphocytes Percent Auto 21.3 % (20-44); Mean Corpuscular HGB Conc 32 gm/dL (32-36); Mean Corpuscular Hemoglobin 30 pg (26-34); Mean Corpuscular Volume 96 fL (80-100); Monocytes Percent Auto 10.2 % (0.0-11.0); Neutrophils Absolute Auto 5.54 K/uL (1.7-7.0); Neutrophils Percent Auto 66.9 % (42.0-72.0); PCO2 VBG 57 mmHG (40-50); PO2 VBG 25.9 mmHG (25-47); Platelet Count* 189 K/uL (140-440); RDW Coefficient of Variation % 14.2 % (11.5-15.5); Red Blood Count 3.54 m/uL (4.30-5.90); pH VBG 7.394 (7.32-7.43)
[2022-09-23 07:29] LABS: Slide Review Reflex No
[2022-09-23 07:42] LABS: Potassium* 4.3 mmol/L (3.6-5.1); Sodium* 138 mmol/L (135-149)
[2022-09-23 07:44] LABS: Blood Urea Nitrogen* 26 mg/dL (7-30); Creatinine* 1.2 mg/dL (0.5-1.5); Est. Creatinine Clearance* 58.38; Estimated Glomerular Filt Rate 63 ml/min
[2022-09-23 08:15] VITALS: BP 111/73; PULSE 68; PULSE 95; RESP 20; TEMP 36.6; O2SAT 95
[2022-09-23] MEDS: SENNOSIDES 1 TAB TABLET 2 TAB PO (09:31)
[2022-09-23] MEDS: IPRAT-ALBUT 0.5-2.5 MG/3 ML NEB 1 NEB IH (09:31)
[2022-09-23] MEDS: RIVAROXABAN 10 MG TABLET PO (09:32)
[2022-09-23] MEDS: METOPROLOL TARTRATE 50 MG TABLET PO (09:33)
--- NOTE | 2022-09-23 10:00 | P.DS_ITS ---
DS: Providers Provider Date Seen: 09/23/22 Date of admission: 09/21/22 13:06 Primary care physician: Jack Mullen MD Admitting Clinician: Xavi Rose MD Attending Physician on discharge: Naseem Urbina MD Date of Discharge: 09/23/22 DS: Diagnosis Discharge Diagnosis (1) Status post total hip replacement, right: Status: Acute Problem details: Doing fairly well with pain management and therapy (2) Ventilatory failure: Status: Acute Problem details: Ventilatory failure postoperatively due to combination of anesthesia and sedation along with CO2 retention related to COPD and probable sleep apnea. Managed with pressure support with BiPAP. Not requiring oxygen. Now resolved. Overnight he slept without needing BiPAP or CPAP or oxygen. (3) ELISSA (obstructive sleep apnea): Status: Suspected Problem details: Highly likely that sleep apnea is present. When he recovers from surgery he should have a sleep study. (4) COPD (chronic obstructive pulmonary disease): Status: Acute Problem details: Treat COPD with inhaled bronchodilators. Does not appear to be a COPD exacerbation (5) Coronary artery disease: Status: Acute Problem details: Monitor for heart disease contributing to his respiratory failure. No symptoms of coronary disease DS: Summary Hospital Course Hospital Course: 77-year-old male admitted to the hospital for right total hip arthroplasty. Procedures performed by Dr. Urbina on the day of admission. There were no operative complications. Postoperatively he had ventilatory respiratory failure. This required BiPAP. The primary abnormality on evaluation was respiratory acidosis with CO2 retention. With BiPAP and discontinuing supplemental oxygen he return to normal mental status. Subsequently has had no further problems with ventilatory failure. He was observed last night while he slept in a recliner. He reports he slept fairly well and did not have sign ificant respiratory problems. He has done well with pain management and physical therapy. Status at Discharge Functional status at discharge: uses cane/walker Overall status at discharge: patient is progressing back to baseline Time Spent with Patient Time attestation: Total time spent providing and/or coordinating discharge services: Time spent: Greater than 30 minutes Exam Narrative: Exam Narrative: He is alert and appears in no distress. Respirations with decreased breath sounds but no wheezing rales or rhonchi. Cardiovascular: S1, S2, regular rate and rhythm. Abdomen is soft without tenderness. Hip incision has mild bruising but otherwise appears well healing. He has no significant edema in his lower extremities. Moves feet and ankles well. Const: Vital Signs, click to edit/add: Vital Signs - 24 hr 09/22/22 11:30 09/22/22 15:00 09/22/22 15:45 Temperature 97.6 F 98.6 F Pulse Rate Pulse Rate [Left A pical] Pulse Rate [Left P ulse Oximeter] 58 L 64 64 Respiratory Rate 16 16 16 Blood Pressure [Le ft Arm] 127/66 Blood Pressure [Ri ght Arm] 129/73 Pulse Oximetry 92 94 Oxygen Delivery Me thod Room Air BiPAP Room Air 09/22/22 17:05 09/22/22 21:13 09/22/22 23:00 Temperature 97.2 F L Pulse Rate 65 63 Pulse Rate [Left A pical] Pulse Rate [Left P ulse Oximeter] 71 Respiratory Rate 20 Blood Pressure [Le ft Arm] Blood Pressure [Ri ght Arm] 142/95 H Pulse Oximetry 90 Oxygen Delivery Me thod Room Air 09/23/22 00:00 09/23/22 04:21 09/23/22 07:00 Temperature 98.0 F Pulse Rate 64 Pulse Rate [Left A pical] Pulse Rate [Left P ulse Oximeter] 72 67 Respiratory Rate 24 24 Blood Pressure [Le ft Arm] Blood Pressure [Ri ght Arm] 112/60 Pulse Oximetry 92 93 Oxygen Delivery Me thod Room Air Room Air 09/23/22 08:15 Temperature 98 F Pulse Rate Pulse Rate [Left A pical] 95 Pulse Rate [Left P ulse Oximeter] 68 Respiratory Rate 20 Blood Pressure [Le ft Arm] Blood Pressure [Ri ght Arm] 111/73 Pulse Oximetry 95 Oxygen Delivery Me thod Room Air Documenting provider has reviewed patient's vital signs: yes DS: Data Data Completed and Pending Labs on day of discharge: Labs from last 24 hours 09/23/22 07:05 WBC 8.30 RBC 3.54 L Hgb 10.7 L Hct 33.9 L MCV 96 MCH 30 MCHC 32 RDW Coeff of Emilee 14.2 Plt Count 189 Neut % (Auto) 66.9 Lymph % (Auto) 21.3 [place] % (Auto) 10.2 Eos % (Auto) 1.4 Baso % (Auto) 0.2 Neut # (Auto) 5.54 Lymph # (Auto) 1.77 [place] # (Auto) 0.80 Eos # (Auto) 0.12 Baso # (Auto) 0.02 VBG pH 7.394 VBG pCO2 57 H VBG pO2 25.9 VBG HCO3 35 H Sodium 138 Potassium 4.3 BUN 26 Creatinine 1.2 Estimated Creat Clear 58.38 Estimated GFR 63 Discharge Plan Discharge Disposition: Home, Self-Care Date of Admission: 09/21/22 13:06 Attending Provider on Discharge: Xavi Rose Consulting Providers: Xavi Rose Primary Care Provider: Jack Mullen Condition: Stable Anticipated Discharge Date/Time: 09/23/22 09:00 Discharge Medications: New sennosides [Senna Lax] 8.6 mg Tablet 17.2 mg PO BID PRN (Reason: constipation) Qty: 100 0RF aspirin [Aspirin Childrens] 81 mg tablet,chewable 81 mg PO BID 30 Days Qty: 60 0RF acetaminophen 500 mg capsule 500 - 1,000 mg PO Q6H MDD 4000mg per day PRN (Reason: pain) Qty: 100 0RF Xarelto 10 mg tablet 10 mg PO DAILY 4 Days Qty: 4 0RF Rx Instructions: Take this medication daily for 4 days, then Aspirin 81mg twice daily for 30 days oxycodone 5 mg Tablet 2.5 - 5 mg PO Q4-6H MDD 6 tabs per day PRN (Reason: Pain) Qty: 30 0RF Rx Instructions: Minimize. Discontinue as soon as possible Continued albuterol 90 mcg/actuation aerosol 2 spray inhalation Q4H PRN nitroglycerin 0.4 mg tablet, sublingual 0.4 mg sublingual Q5M PRN Rx Instructions: PRN CHEST PAIN atorvastatin 80 mg tablet 80 mg PO HS omeprazole magnesium [Prilosec OTC] 20 mg tablet,delayed release (DR/EC) 20 mg PO DAILY metoprolol tartrate 50 mg tablet 50 mg PO BID ipratropium-albuterol 0.5 mg-3 mg(2.5 mg base)/3 mL solution for nebulization 3 ml inhalation QID PRN aspirin [Adult Aspirin Regimen] 81 mg tablet,delayed release (DR/EC) 81 mg PO DAILY Spiriva with HandiHaler 18 mcg capsule, w/inhalation device 1 cap inhalation DAILY Rx Instructions: puncture 1 cap using device; one dose = 2 inhalations Discharge Orders: Discharge Order (Routine); Ordered 09/23/22 Ordered By: Xavi Rose Patient Education: Acetaminophen (By mouth), Aspirin (By mouth), Rivaroxaban (By mouth), Senna (By mouth) (Sen, Senna-lax), Total Hip Replacement (DC) Activity Level: Activity as Tolerated and No strenuous activity Activity Detail: Keep dressing on for 1 week. Dressing is waterproof. May shower. Surgical glue covers the wound. Attend outpatient physical therapy if scheduled. Ice and elevate operative extremity without restriction. Wear compression stockings for 1 month post surgery. May remove for 1 hour per day. Ambulate every hour throughout the day. If you drive, Do not drive while taking narcotic pain medication. Do not drink alcohol while taking narcotic pain medication. May drive when safe to do so and have full function of the extremities, this will take 6 weeks or more. Notify Orthopedics with any questions or concerns. ([phone]) Minimize narcotic use. Narcotic use can affect respiration. Discharge Diet: Regular Follow Up Appointments: Jack Mullen MD [Primary Care Provider] - (See your doctor to arrange for an outpatient sleep study to evaluate for sleep apnea) Forms: [employer] Info Instructions
--- NOTE | 2022-09-23 10:07 | PM.ORPN ---
Subjective Subjective Time Seen by Provider: 10:09 Date Seen: 09/23/22 Principal diagnosis: Status post right hip replacement Interval history: Pt is comfortable in recliner. He is dressed in regular clothes and ready for discharge. he is discharging to home. Ortho Exam Narrative Exam Narrative: Alert and oriented x3. Patient is in no acute distress. Converses without labored breathing. Hearing is grossly intact. Ambulates with a walker. Examination of the right lower extremity shows dressing is intact. No erythema or warmth or sign of infection. Edema is present about the right hip. Able to straight leg raise. Quad strength 5/5. No foot drop. CMS intact right lower extremity. Const Vital Signs, click to edit/add: Vital Signs - 24 hr 09/22/22 11:30 09/22/22 15:00 09/22/22 15:45 Temperature 97.6 F 98.6 F Pulse Rate Pulse Rate [Left Apical] Pulse Rate [Left Pulse Oximeter] 58 L 64 64 Respiratory Rate 16 16 16 Blood Pressure [Left Arm] 127/66 Blood Pressure [Right Arm] 129/73 Pulse Oximetry 92 94 Oxygen Delivery Method Room Air BiPAP Room Air 09/22/22 17:05 09/22/22 21:13 09/22/22 23:00 Temperature 97.2 F L Pulse Rate 65 63 Pulse Rate [Left Apical] Pulse Rate [Left Pulse Oximeter] 71 Respiratory Rate 20 Blood Pressure [Left Arm] Blood Pressure [Right Arm] 142/95 H Pulse Oximetry 90 Oxygen Delivery Method Room Air 09/23/22 00:00 09/23/22 04:21 09/23/22 07:00 Temperature 98.0 F Pulse Rate 64 Pulse Rate [Left Apical] Pulse Rate [Left Pulse Oximeter] 72 67 Respiratory Rate 24 24 Blood Pressure [Left Arm] Blood Pressure [Right Arm] 112/60 Pulse Oximetry 92 93 Oxygen Delivery Method Room Air Room Air 09/23/22 08:15 Temperature 98 F Pulse Rate Pulse Rate [Left Apical] 95 Pulse Rate [Left Pulse Oximeter] 68 Respiratory Rate 20 Blood Pressure [Left Arm] Blood Pressure [Right Arm] 111/73 Pulse Oximetry 95 Oxygen Delivery Method Room Air Assessment and Plan Assessment and plan (1) Status post total hip replacement, right: Problem details: Date of surgery 09/21/2022 Status: Acute Assessment and Plan: Plan for discharge is today DVT prophylaxis includes Xarelto 10 mg daily for total of 5 days, then aspirin 81 mg twice daily for 30 days, Tobias stockings x1 month may remove for 1 hr per day, frequent ambulation Remove dressing 1 week. Observe wound and phone Orthopedics with any questions or concerns Use Ice on operative hip unrestricted. Return to clinic in 1 week with PA for a wound check Return to clinic in [address] Urbina Minimize narcotic use. Wean off and discontinue soon as possible. Patient is planning to sleep in a recliner due to sleep apnea/CO2 retention postop. Activities as tolerated. No strenuous activity. Attend outpt PT (2) Ventilatory failure: Problem details: Ventilatory failure postoperatively due to combination of anesthesia and sedation along with CO2 retention related to COPD and probable sleep apnea. Managed with pressure support with BiPAP. Not requiring oxygen. Now resolved. Overnight he slept without needing BiPAP or CPAP or oxygen. Status: Acute (3) ELISSA (obstructive sleep apnea): Problem details: Highly likely that sleep apnea is present. When he recovers from surgery he should have a sleep study. Status: Suspected (4) COPD (chronic obstructive pulmonary disease): Problem details: Treat COPD with inhaled bronchodilators. Does not appear to be a COPD exacerbation Status: Acute (5) Coronary artery disease: Problem details: Monitor for heart disease contributing to his respiratory failure. No symptoms of coronary disease Status: Acute
--- NOTE | 2022-09-23 11:16 | PC.NURSE ---
Tele indicates NSR. Sats maintained on room air. Pt eval by PT, OT, Dr. Rose. Post op goals met. Please see eMar for meds provided to this patient. IV site discontinued. Pt rating his pain 2-4 out of 10. Pt showered with minimal assist. Larger size of wade hose applied. Pt and verbalized understanding of d/c diagnosis, home meds, pain management plan, f/up appt and sx to report urgently to physician. Discharged via w/c at 11:05 am to own home with personal belongings with his Marie as transportation.
== END 2022-09-23 11:05 | disposition home or self-care (01) | DRG 469 ==
LOC: OR 13:07 → MEDSURG 13:07
PROVIDERS: Anesthesiology; Admitting Provider Family Medicine; PCP Family Medicine; Visit Provider Orthopaedic Surgery
PROC: 0SR902Z Replacement of Right Hip Joint with Metal on Polyethylene Synthetic Substitute, Open Approach (ICD-10-PCS; CPT 27130; principal; 2022-09-21 08:15)
DX: M16.11 Unilateral primary osteoarthritis, right hip (principal); J95.821 Acute postprocedural respiratory failure; G89.18 Other acute postprocedural pain; I25.10 Atherosclerotic heart disease of native coronary artery without angina pectoris; J44.9 Chronic obstructive pulmonary disease, unspecified; G47.33 Obstructive sleep apnea (adult) (pediatric); I10 Essential (primary) hypertension; I25.2 Old myocardial infarction; F32.A Depression, unspecified
CPT/HCPCS: 01214; 36415; 36600; 51701; 64450; 71045; 73501; 76000; 76942; 82565; 82803; 84132; 84295; 84484; 84520; 85025; 94640; 94660; 97110; 97116; 97161; 97165; 97535; 99100; A9270; C1776; J0330; J0690; J1100; J1170; J1940; J2250; J2310; J2370; J2405; J2704; J2710; J2795; J3010; J7120

== ENCOUNTER 2022-11-22 14:00 | Outpatient (RCR) | payer MEDICARE, SELFPAY ==
--- NOTE | 2022-09-15 14:24 | PT.OPEX ---
PT [facility] Outpatient Eval INTIAL EVAL REQUIRES SIGNATURE PT [facility] Outpatient Eval Start: 09/15/22 11:43 Freq: Status: Active Protocol: Document 09/15/22 12:49 JONES (Rec: 09/15/22 14:20 JONES [id number]) E-signed By Kyrie Casillas DPT Physical Therapy Outpatient Evaluation Insurance Information Recert Due Date 12/09/22 Insurance Name Medicare B,are Medical Diagnosis R hip pain, R SHEFALI DOS 09/21/22 Treating Diagnosis R hip pain muscle weakness Referring MD maria esther urbina Subjective Subjective Axel comes into clinic for his pre op visit prior to his R SHEFALI on 09/21/22. Has been using cortisone injection to get by but is finally deciding to get his hip replaced. Has already had his L hip replaced about [address] Urbina. With his R leg he finds walking, standing, stairs, or even lifting the leg to be a challenge. Overall wants to just be less stiff while allowing for more activity and strength. States having a fall about a month ago so will want to be more stable on his feet. At home he will be staying on the main floor where there is a den where his recliner will be for him to sleep in. Pain Comments -01/04 Date of Surgery (If applicable) 09/21/22 Current Work Status Retired Precautions Treatment Precautions/Contraindications HX HEART ATTACK, CAD, COPD, STENT PLACEMENT, L SHEFALI HTN Objective Other/Pertinent Objective GAIT ambulates with SPC on R side with step through pattern decreased pace increased trunk lean over R leg during stance HIP ROM Flexion: 90-95 degrees before stiffness and pain Extension: neutral without pain Internal Rotation: 15 degrees External Rotation 25-30 degrees LLE MMT: Hip flexion: R 4/5 Hip abduction: R 4-/5 Hip extension: R 4/5 Knee flexion: R 4+/5 Knee extension: R4+ /5 Assessment Assessment/Impression .assess Pt is a 77 yr old male who presents with concerns of R hip pain . Signs and symptoms likely indicating / consistent with R hip OA . Patient also has notable objective findings including limited ROM, impaired balance, decreased strength also likely contributing to the problem. Patient is a good candidate for skilled therapy to target deficits described above. Skilled PT intervention is necessary for use of therapeutic exercise manual therapy, neuromuscular re- education, gait training, and therapeutic activity. Functional impairments include difficulty with: WALKING STANDING LIFTING SQUATTING STAIRS . See appropriate sections of PT eval for complete list of goals and POC . D/C plan and criteria is for pt to achieve the goals as listed below or until max rehab potential is met. 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 2) Pt will improve hip AROM at least 0-90* for improved sit to stand transfers 3) Patient will ascend/descend at least 12 steps using single rail and reciprocal pattern to improve ease of mobility at home/community 4)Pt will ambulate at least 30 minutes with spc device, minimal antalgic gait for improved community mobility Coordination/Communication With Referral Source Treatment Plan/Direct Interventions Gait Training,Joint Mobilization,Manual Therapy, Neuromuscular Re-ed,Self-Care/ Home Management,Therapeutic Activities,Therapeutic Exercises Frequency/Duration 1-2 visits a week for 6-12 weeks Patient Will Be Discharged From Therapy Completion of LTG(s), Independent w/HEP, Independently Progressing Evaluation Billing Untimed Code Treatment Minutes 15 Complexity Low Certification Information Initial Certification Date 09/15/22 Ending Certification Date 12/09/22 Physician Comment/Change : Physician NPI Number #
== END 2023-01-04 10:18 | disposition home or self-care (01) ==
PROVIDERS: PCP Family Medicine; Visit Provider Orthopaedic Surgery
DX: M16.11 Unilateral primary osteoarthritis, right hip (principal); Z96.641 Presence of right artificial hip joint; M25.551 Pain in right hip; M62.81 Muscle weakness (generalized); Z51.89 Encounter for other specified aftercare
CPT/HCPCS: 97110; 97116; 97140; 97161; 97164

== ENCOUNTER 2024-10-12 19:20 | Emergency (ER) | payer MEDICARE, SELFPAY ==
--- OUTSIDE RECORDS SUMMARY | 2024-03-07 09:00 | XMS_ITS | Encounter Summary ---
Author Name [facility] [place] Organization [facility] [place] Address [address] [place] [address] Care Team Providers Care Residential Direct Support Professional Name Role Phone MALLIKA WARD Primary Care Provider Unavailabl e Insurance Providers: All historical and current Section Date Range: From patient's date of to the date document was created. This section includes the names of all active insurance providers for the patient. Insurance Provider Type of Coverage Plan Name Start of Policy Coverage End of Policy Coverage Group Number Member ID Insurance Provider's Telephone Number Policy No's Name Patient's Relationship to Policy No [facility] (WNR) MEDICARE ADVANTAGE [facility] (WNR) Dec 26, 2022 [id number] KEM SAMANIEGO PATIENT [facility] (WNR) MEDICARE (M) MEDIC ARE REPLA PEGHILARY Mina Mar 28, 2019 [facility] [id number] [phone] KEM SAMANIEGO PATIENT Selected Encounter This section includes the information on record at [place] for the Encounter. Date/Time Encounter Type Encounter Description Reason Provider Source Mar 07, 2024 02:00 PM OFFICE O/P EST MOD 30 MIN PRIMARY CARE/MEDICINE ICD-10-CM J44.9 Chronic obstructive pulmonary disease, unspecified MALLIKA WARD E Encounter Template Text not used by [facility] Assessments - Encounter Diagnoses This section includes the primary and secondary diagnoses documented for the Encounter. Date/Time Primary/Secondary Diagnosis Diagnosis Name Provider Source Mar 07, 2024 03:15 PM PRIMARY Chronic obstructive pulmonary disease, unspecified MALLIKA WARD [facility] Mar 07, 2024 03:15 PM SECONDARY Chronic ischemic [facility] disease, [facility] Mar 07, 2024 03:15 PM [facility]OND[facility] for [facility] Mar 07, 2024 03:15 PM SECONDARY Essential (primary) hypertension [facility] Mar 07, 2024 03:15 PM SECONDARY Hyperglycemia, unspecified [facility] Mar 07, 2024 03:15 PM SECONDARY Hyperlipidemia, unspecified [facility] Mar 07, 2024 03:15 PM [facility]OND[facility] Ob[facility], unspecified [facility] Plan of Treatment: Future Appointments (+ 6 months) and Future Tests (+/- 45 days) The Plan of Treatment section includes future care activities for the patient from all [place] [facility]. This section includes future appointments and future orders which are active, pending or scheduled. Future Appointments This section includes appointments that were scheduled to occur 6 months from the date of the Encounter, up to a maximum of 20 appointments. The data comes from all [place] treatment facilities. Appointment Date/Time Appointment Type Appointme nt Facility Name Mar 30, 2024 11:20 AM AMBULATORY - MEDICINE [facility] Apr 30, 2024 11:30 AM AMBULATORY - MEDICINE [facility] Apr 30, 2024 12:30 PM AMBULATORY - NONE [facility] Apr 30, 2024 01:15 PM AMBULATORY - NONE [facility] Apr 30, 2024 02:00 PM AMBULATORY - NONE [facility] August 03, 2024 01:30 PM AMBULATORY - MEDICINE [facility] Lab Results: +/- 30 days of the encounter This section includes the Chemistry and Hematology Lab Results on record with [place] for the patient. Radiology Reports and Pathology Reports are provided separately, in subsequent sections. Lab Results This section contains the Chemistry/Hematology Results that were resulted 30 days before or 30 daysafter the date of the Encounter. Date/Time Source Result Type Result - Unit Interpretation Reference Range Specimen Type Comment Mar 07, 2024 12:35 PM [facility] HEMOGLOBIN A1C BLOOD Specimen Type: BLOOD Comment: Values obtained from A1C measurements can vary. For typical A1C assays, a reported value of 7.0 could actually be between 6.7 and 7.3 if measured by a reference method. A reported value of 9.0 could actually be between 8.7 and 9.3. Ref: http://www.ngsp .org/CAPdata.as p Ordering Provider: HAKEEM DORADO Report Released Date/Time: Mar 04, 2023 07:12 PM Reporting Lab: [facility] [id number] Performing Lab: [facility] [id number] HEMOGLOBIN A1C 5.6 4.0-6.0 Mar 07, 2024 12:35 PM [facility] AST/SGOT PLASMA Specimen Type: PLASMA No comment entered. Ordering Provider: HAKEEM DORADO Report Released Date/Time: Mar 04, 2023 07:12 PM Reporting Lab: [facility] [id number] Performing Lab: [facility] [id number] AST/SGOT 27 U/L 11-34 Mar 07, 2024 12:35 PM [facility] ALT/SGPT PLASMA Specimen Type: PLASMA No comment entered. Ordering Provider: HAKEEM DORADO Report Released Date/Time: Mar 04, 2023 07:12 PM Reporting Lab: [facility] [id number] Performing Lab: [facility] [phone] ALT/SGPT 23 U/L <44 Mar 07, 2024 12:35 PM [facility] BASIC METABOLIC PANEL+MG PLASMA Spe cimen Type: PLASMA No comment entered. Ordering Provider: HAKEEM DORADO Report Released Date/Time: Mar 04, 2023 07:12 PM Reporting Lab: [facility] [id number] Performing Lab: [facility] [phone] CREATININE 1.2 mg/dL 0.7-1.2 UREA NITROGEN 17 mg/dL 8-26 GLUCOSE 91 mg/dL 70-100 SODIUM 138 mmol/L 136-145 POTASSIUM 4.9 mmol/L 3.5-5.1 CHLORIDE 104 mmol/L 98-107 CO2 30 mmol/L H 22-29 CALCIUM 9.1 mg/dL 8.4-10.2 MAGNESIUM 2.1 mg/dL 1.6-2.6 ANION GAP 4 mmol/L L 5-15 .CREAT EGFR(CKD-EPI) 63 >60 Mar 07, 2024 12:35 PM [facility] CBC & DIFF BLOOD Specimen Type: BLOOD Comment: Automated Differential Performed Ordering Provider: HAKEEM DORADO Report Released Date/Time: Mar 04, 2023 07:12 PM Reporting Lab: [facility] [phone] Performing Lab: [facility] [id number] WBC 8.7 4.0-11.0 RBC 4.39 L 4.60-6.20 HGB 13.5 g/dL 13.5-17.9 HCT 42.5 41.0-54.0 MCV 96.8 fL 80.0-100.0 MCH 30.8 pg 27.0-33.0 MCHC 31.8 g/dL L 32.0-37.5 PLT 231 150-400 MPV 9.6 fL 9.1-13.0 NEUT 60.6 40.0-80.0 LYMPHS 25.5 15.0-45.0 MONO 9.8 2.0-12.0 EOSINO 3.3 0.0-6.0 BASO 0.7 0.0-2.0 RDW 13.8 11.5-14.5 ABS LYMPH 2.2 1.0-4.0 ABS MONO 0.9 0.1-1.0 ABS NEUT 5.3 2.0-7.7 ABS EOS 0.3 0.0-0.5 ABS BASO 0.1 0.0-0.2 IG(META,MYELO,PRO) 0.1 ABS IMMATURE GRAN 0.0 0.0-0.1 Mar 07, 2024 12:35 PM [facility] LIPID PANEL,NON-FASTING PLASMA Spec imen Type: PLASMA No comment entered. Ordering Provider: MALLIKA WARD Report Released Date/Time: Mar 07, 2024 02:24 PM Reporting Lab: [facility] [phone] Performing Lab: [facility] [phone] CHOLESTEROL 137 mg/dL <199 .HDL 51 mg/dL >40 LDL CALCULATION 68 mg/dL <99 VLDL CALCULATION 18 mg/dL <29 NON HDL CHOLESTEROL 86 mg/dL <129 TRIG(NON FASTING) 88 mg/dL <149 Vital Signs: All taken on the encounter date This section contains inpatient and outpatient Vital Signs collected on the date of the Encounter. Date/Time Temperature Pulse Blood Pressure Respiratory Rate SP02 Pain Height Weight Body Mass Index Source Mar 07, 2024 01:25 PM 122/75 [facility] Mar 07, 2024 01:14 PM 98.1 58 145/72 14 96 0 277.4 38 [facility] Immunizations: All administered on the encounter date This section contains immunizations associated to the Encounter. Immunization Series Date Issued Administered By Site Reaction Lot Number CVX Code Drug Sanforizer Comment(s) Source RSV, BIVALENT, PROTEIN SUBUNIT RSVPREF, DILUENT RECONSTITUTED , 0.5 ML, PF Mar 07, 2024 CRESENCIO VILLEGAS MIGUELINA LEFT DELTO ID [id number] [employer], [employer] ADMINISTERE D AT [place], [facility] Social History: Smoking Status (Most current) and Tobacco Use (All prior to encounter date) This section includes the most current, and the historical, smoking and tobacco- related health factors from the [place] facility where the Encounter took place. Current Smoking Status This section includes the most current smoking, or tobacco-related health factor, from the [place] facility where the Encounter took place. Date/Time Current Smoking Status Comment Lillian infante Mar 07, 2024 02:00 PM VA-TOBACCO USE FORMER CIGARETTES [facility] Tobacco Use History This section includes a history of the smoking, or tobacco-related health factors, that were collected on or before the date of the Encounter. The data comes from the [place] facility where the Encounter took place. Date/Time Smoking Status/Tobacco Use Comment F acility Mar 07, 2024 02:00 PM VA-TOBACCO USE FORMER CIGARETTES [facility] Mar 04, 2023 09:30 AM VA-TOBACCO FORMER USER [facility] Mar 04, 2023 09:30 AM VA-TOBACCO QUIT 5 TO < 15 YRS [facility] Feb 16, 2021 03:15 PM VA-TOBACCO FORMER USER [facility] Feb 16, 2021 03:15 PM VA-TOBACCO QUIT 5 TO < 15 YRS [facility] Dec 11, 2018 10:30 AM VA-TOBACCO FORMER USER [facility] Dec 11, 2018 10:30 AM VA-TOBACCO QUIT 15 YRS OR MORE [facility] Nov 09, 2017 10:23 AM FORMER TOBACCO USER 7Y OR GREATE R [facility] Dec 29, 2016 09:20 AM FORMER TOBACCO USER 7Y OR GREATE R [facility] Mar 03, 2016 10:14 AM FORMER TOBACCO USER 7Y OR GREATE R [facility] Feb 19, 2015 10:23 AM FORMER TOBACCO USE >1Y <7Y [facility] Feb 06, 2014 08:50 AM FORMER TOBACCO USE >1Y <7Y [facility] Encounter Notes: All associated encounter notes This section contains the clinical notes associated to the Encounter. Date/Time Encounter Note(s) Provider Source Mar 08, 2024 01:26 PM ADDENDUM: LOCAL TITLE: Addendum STANDARD TITLE: ADDENDUM DATE OF NOTE: MAR 08, 2024@13:26:29 ENTRY DATE: MAR 08, 2024@13:26:31 AUTHOR: MALLIKA WARD EXP COSIGNER: URGENCY: STATUS: COMPLETED LDCT lung clarification: & confirmed he actually quit smoking mid (they believe 2013) as mentioned in my note above. Still appropriate for screening w/ 100 pack years and quit ~10 y ago. Please call to schedule. /naty/ MALLIKA WARD STAFF PHYSICIAN Signed: 03/08/2024 13:27 Receipt Acknowledged By: 03/12/2024 09:58 /naty/ WYATT MORENO MA, RN LCS Extractor Filler --- Original Document --- 03/07/24 MEDICINE CLINIC NOTE: CC: annual HPI/ROS: KEM SAMANIEGO is a 78 year old MALE w/ hx COPD, ischemic heart disease (STEMI 2007 90% mLCx s/p [facility]), ascending aortic aneurysm (4.3cm), bilateral SHEFALI, here for annual. Co-managed by Dr. Jack Mullen ([facility]) but notes has been difficult to get in to see him for acute visits. Gets medications at [place]. COPD: - breathing worse over past year, wheezing and chest tightness/pressure; resolves w/ albuterol - CAT score 20 today - Cough w/ clear phlegm. Yellowish sputum past several days. Breathing unchanged. - No fevers or chills. No recent illnesses. - Trelegy was recommended by community provider-- reviewed [facility] notes, no rx faxed over despite requests from [facility] team. - would like to have COPD management done through [place] - last exacerbations July and June 2023, outpt, treated w/ prednisone/doxy - thinks his woodburning stove is a trigger - no smoking TAA- had US at [facility] 07/30/21 with ascending aorta 4.1 cm, normal for BSA. Sleep-- using TCH gummies, sleeping well. No daytime somnolence. Never had sleep study (suggested after difficulty waking from anesthetic after R SHEFALI 2022). ASCVD: on statin and ASA, hx stent, lipids pending LDL goal <70 DM: A1c 5.6%. Asks about Ozempic for weight loss, not currently a candidate at [place]. Colon cancer screening (45yo or family hx, IBD): never screened, declined PSA counseling (50 yo or 40yo AA, family hx, until age 70): n/a Mood: no concerns Sexual health: no concerns, not currently active Tobacco use: quit mid , 2 ppd for 50+ years - AAA (65-75 yo current/former smoker): not on file, do not see done at [facility] either - LDCT (50-80 yo w/ 20+ pack years current or quit in past 15y): last 2021. Repeat ordered Alcohol use: none Drug use: THC gummies, no drug use Home safety: no falls, walks w/ cane as needed due to fatigue Skin concerns: no concerns Dental: [facility] connected, dentures and a plate Hearing: issues, has not had audiology eval Vision: uses readers Vaccinations: RSV given today. Advanced Directive: Full code for now, need to discuss as a family. Ok with intubation for respiratory failure. PMH: Active problems - Computerized Problem List is the source for the followin. Chronic ischemic heart disease (SNOMED CT 520561218) 2. Obesity 3. Edema of lower leg 4. Co-mgd Mary Montaño Dr.Jack Mullen 5. Hip pain 6. Chronic obstructive lung disease - 06/2014 PFT: FEV1 62.9, FEV1/FVC 62 -> mod obstruction 7. Back pain 8. Shoulder pain 9. Hypertension 10. Hyperlipidemia 11. Hyperglycemia Allergies: Patient has answered NKA Meds: Reviewed & updated in CPRS. See EMR for details. EXAM: VS: Temp: 98.1 F [36.7 C] (03/07/2024 13:14) Pulse:58 (03/07/2024 13:14) BP: 122/75 (03/07/2024 13:25) Resp: 14 (03/07/2024 13:14) O2 sat: 96% (03/07/2024 13:14) Weight: Measurement DT WEIGHT LB(KG)[BMI] 03/07/2024 13:14 277.4(125.83)[38*] 03/04/2023 09:05 263.2(119.39)[36*] 02/23/2022 08:34 258(117.03)[35*] General: NAD HEENT: NCAT Lungs: end expiratory wheezes most prominent RLL. Mild dyspnea. No rhonchi, rales, crackles. CV: RRR, no m/r/g, no peripheral edema Abdomen: s/nt/nd Neuro: Ambulates with cane, alert & oriented, EOMI. Data/Labs: Reviewed in EMR. Labs completed prior to today's appointment were reviewed with patient during appointment. Assessment and Plan: #COPD with acute exacerbation 2014 PFTs w/ moderate obstruction. Evidence of acute exacerbation today w/ increased sputum production and chest tightness. Third exacerbation this year although has been managed w/ albuterol alone and no maintenance inhaler (Trelegy request received at AL from outside PCP, [facility] does not have Trelegy on formulary, no return fax received for formulary alternatives). He would like AL to take over COPD management to streamline-- recommend starting Stiolto for maintenance. GOLD group E w/ third exacerbation this year although not on optimized medical therapy. No peripheal eosinophilia or hx hospitalization. Will start LAMA/LABA. - start Stiolto maintenance inhaler 2 puffs daily - continue albuterol inhaler prn (refilled) - switch nebulizer to albuterol alone given LAMA in maintenance inhaler per VA guidelines - acute exacerbation - start 5d course prednisone 40 mg daily plus doxycycline 100 mg BID - COPD action plan given - decrease use of woodburning stove in home - consider pulmonary rehab referral pending improvement w/ maintenance inhaler #HTN Well controlled on metoprolol tartrate 50 mg BID - continue #CAD hx inferior STEMI s/p [facility] at [place] in 2007. Current LEVINE and chest tightness likely due to COPD, does not feel similar to prior [place]. TTE normal 2021. - continue ASA/statin #Enlarged ascending aorta Seen on LDCT 2021, US at [facility] showed 4.1 cm normal for BSA - noted #Obesity BMI 37, he inquired about Ozempic today although had concerns about side effects. If he were to fail other oral med he would qualify for [facility] with BMI >35 and ASCVD. We discussed pulmonary rehab to help w/ exercise tolerance would also be of benefit - RTC 4 mo to f/u on COPD, obesity - consider PACT pharmD referral for weight loss medication/MOVE if interested #Co-managed Has seen Dr. Mullen at [facility] for primary care. - transitioning [facility] to [facility] - this note to be faxed to Dr. Mullen for continuity of care [phone] ---> Dr. Mullen please fax any new prescriptions requested by [facility] to Co-Managed Care #HM - LDCT lung ordered - AAA screen ordered ([place]) When available, please see After Visit Summary in [employer] for additional information given to patient at time of visit. Education on Treatment Plan: Patient indicates readiness to learn, verbalizes understanding, agreement and satisfaction with the treatment plan. Denies further questions. Patient indicates readiness to learn and has been instructed on action, dose, frequency, and side effects of medications. Patient verbalizes understanding. Medication Reconciliation: Education Evaluations *Was medication education provided for NEW medications or CHANGES to medications? (including medication name, dose, route, reason for use, and potential side effects). Yes. Verbal education was provided to patient/caregiver and patient/caregiver verbalized understanding. TERATOGENIC MED & CONTRACEPTION REVIEW (Optional)... ======= MEDICATION RECONCILIATION ======= List Given: An updated medication list was provided to the patient/caregiver. Review Done: The medication list shown below was verified for accuracy and it includes all pending medications/active medications/all medications or discontinued within the last 90 days/all remote medications and non-VA medications. If a given category (i.e. remote meds) is not shown, that means that a patient doesn't have a medication(s) in that category. Allergies listed below were also reviewed/updated for accuracy. Allergies/ADR from [facility] may not display in CPRS. Use JLV MRT5 - Allergies/ADRs FACILITY ALLERGY/ADR -------- No Remote Allergy/ADR Data available for this patient [facility] No Known Allergies Active and Recently Outpatient Medications (including Supplies): Issue Date Status Last Fill Active Outpatient Medications Refills Expiration 1) ATORVASTATIN CALCIUM 80MG TAB Qty: 45 ACTIVE Issu:11-25-23 for 90 days Sig: TAKE ONE-HALF TABLET Refills: 3 Last:01-23-24 BY MOUTH AT BEDTIME FOR CHOLESTEROL Expr:11-25-24 Issue Date Status Last Fill Pending Outpatient Medications Refills Expiration 1) ALBUTEROL 90MCG (CFC-F) 200D ORAL INHL PENDING Qty: 2 Sig: INHALE 2 PUFFS BY Refills: 0 INHALATION FOUR TIMES A DAY NEEDED 2) ALBUTEROL SO4 0.083% INHL 3ML Qty: 90 PENDING Sig: INHALE 3ML NEBS FOUR TIMES A DAY Refills: 0 NEEDED 3) OLODATEROL/TIOTROP 2.5MCG/ACTUAT 60D INH PENDING Qty: 3 Sig: INHALE 2 PUFFS BY Refills: 0 INHALATION EVERY DAY 4) PREDNISONE 20MG TAB Qty: 10 Sig: TAKE PENDING TWO TABLETS BY MOUTH EVERY MORNING Refills: 0 Issue Date Status Last Fill Inactive Outpatient Medications Refills Expiration 1) ALBUTEROL 3/IPRATROP 0.5MG/3ML INHL 3ML DISCONTINUED Issu:07-18-23 Qty: 360 for 90 days Sig: INHALE 3ML Refills: 2 Last:03-06-24 IN NEBULIZER BY INHALATION FOUR TIMES Expr:07-18-24 A DAY FOR COPD 2) ATORVASTATIN CALCIUM 80MG TAB Qty: 45 DISCONTINUED Issu:02-05-23 for 90 days Sig: TAKE ONE-HALF TABLET Refills: 0 Last:10-25-23 BY MOUTH AT BEDTIME FOR CHOLESTEROL Expr:02-06-24 3) METOPROLOL TARTRATE 50MG TAB Qty: 180 Issu:03-04-23 for 90 days Sig: TAKE ONE TABLET BY Refills: 0 Last:02-14-24 MOUTH TWICE A DAY Expr:03-04-24 4) OMEPRAZOLE 20MG EC CAP Qty: 90 for 90 Issu:03-04-23 days Sig: TAKE ONE CAPSULE BY MOUTH Refills: 0 Last:01-26-24 EVERY DAY Expr:03-04-24 5) OMEPRAZOLE 20MG EC CAP Qty: 90 for 90 DISCONTINUED Issu:11-08-22 days Sig: TAKE ONE CAPSULE BY MOUTH Refills: 1 Last:01-29-23 EVERY DAY Expr:11-09-23 Start Date Active Non-VA Medications Refills Expiration 1) Non-VA ASPIRIN TAB SiMG MOUTH ACTIVE EVERY DAY 2) Non-VA IBUPROFEN 200MG TAB SiMG ACTIVE MOUTH THREE TIMES A DAY NEEDED 12 Total Medications Colonoscopy GAP Reminder: Recommendations are needed in the clinical reminder system following the patient's most recent colorectal cancer screening/surveillance test (Colonoscopy, Sigmoidoscopy or CT Colonography) Patient declined average risk screening. HTN Assess for Elevated BP>=140/90: The patient's blood pressure is usually adequately controlled. No medication changes are indicated at this time. /naty/ MALLIKA WARD STAFF PHYSICIAN Signed: 03/07/2024 15:15 MALLIKA WARD [facility] Mar 08, 2024 08:12 AM LETTERS: LOCAL TITLE: FOLLOW UP RESULTS LETTER STANDARD TITLE: LETTERS DATE OF NOTE: MAR 08, 2024@08:12 ENTRY DATE: MAR 08, 2024@08:12:23 AUTHOR: MALLIKA WARD EXP COSIGNER: URGENCY: STATUS: COMPLETED [facility] [address] [place] [address] Feb KEM SAMANIEGO [address] [facility] [address] Dear [facility]: I am writing to inform you of the results of testing that you had done recently at the [facility]. - Cholesterol Tests (HDL = good and LDL = bad) CHOLESTEROL 137 (03/07/24) (prefer less than 200) HDL 51 (03/07/24) (prefer more than 39) LDL CALCULATION 68 (03/07/24) (prefer less than 100) MEASURED LDL____ (prefer less than 100) TRIGLYCERIDE____ (prefer less than 150) - Complete Blood Count (red/white blood cell counts and platelets) White count: WBC 8.7 (03/07/24) (normal is 4.0-11.0) Hemoglobin: HGB 13.5 (03/07/24) (normal Male is 13.5-17.9; Female is 11.5-16) Hematocrit: HCT 42.5 (03/07/24) (normal Male is 41-54; Female is 34.5-48) Platelets: PLT 231 (03/07/24) (normal is 150-400) - Electrolytes including sodium and potassium SODIUM 138 (03/07/24) (normal is 136-145) POTASSIUM 4.9 (03/07/24) (normal is 3.5-5.1) - Calcium CALCIUM 9.1 (03/07/24) (normal is 8.5-10.1) - Kidney function CREATININE 1.2 (03/07/24)(normal Male = less than 1.2; normal Female = less than 1.0)) UREA NITROGEN 17 (03/07/24) (normal Male is 8-26; normal Female is 10-20) - Blood Sugar GLUCOSE 91 (03/07/24) (normal is 70 - 100 if fasting) - Liver function Tests AST/SGOT 27 (03/07/24) (normal 11-34) ALT/SGPT 23 (03/07/24) (normal is </= 44) ALK PHOSPHATASE____ (normal 45-117) BILIRUBIN, TOTAL____ (normal 0.2-1.2) - Hemoglobin A1C (normal 4.0-6.0) Collection DT Spec HGBA1C 03/07/2024 12:35 BLOOD 5.6 03/04/2023 10:11 BLOOD 5.6 02/23/2022 08:09 BLOOD 5.9 Additional Comments: As we discussed during your visit, your labs are all normal. Your cholesterol looks perfect, you can continue the same dose of your atorvastatin. If you have any further questions or problems, please contact our nursing staff or provider at the following number: [phone]. Sincerely, MALLIKA WARD STAFF PHYSICIAN MALLIKA WARD [facility] Mar 07, 2024 01:30 PM INTERNAL MEDICINE NOTE: LOCAL TITLE: MEDICINE CLINIC NOTE STANDARD TITLE: INTERNAL MEDICINE NOTE DATE OF NOTE: MAR 07, 2024@13:30 ENTRY DATE: MAR 07, 2024@13:31:03 AUTHOR: MALLIKA WARD EXP COSIGNER: URGENCY: STATUS: COMPLETED SUBJECT: annual, co-managed MEDICINE CLINIC NOTE Has ADDENDA CC: annual HPI/ROS: KEM SAMANIEGO is a 78 year old MALE w/ hx COPD, ischemic heart disease (STEMI 2007 90% mLCx s/p [facility]), ascending aortic aneurysm (4.3cm), bilateral SHEFALI, here for annual. Co-managed by Dr. Jack Mullen ([facility]) but notes has been difficult to get in to see him for acute visits. Gets medications at AL. COPD: - breathing worse over past year, wheezing and chest tightness/pressure; resolves w/ albuterol - CAT score 20 today - Cough w/ clear phlegm. Yellowish sputum past several days. Breathing unchanged. - No fevers or chills. No recent illnesses. - Trelegy was recommended by community provider-- reviewed [facility] notes, no rx faxed over despite requests from [facility] team. - would like to have COPD management done through AL - last exacerbations July and June 2023, outpt, treated w/ prednisone/doxy - thinks his woodburning stove is a trigger - no smoking TAA- had US at [facility] 07/30/21 with ascending aorta 4.1 cm, normal for BSA. Sleep-- using TCH gummies, sleeping well. No daytime somnolence. Never had sleep study (suggested after difficulty waking from anesthetic after R SHEFALI 2022). ASCVD: on statin and ASA, hx stent, lipids pending LDL goal <70 DM: A1c 5.6%. Asks about Ozempic for weight loss, not currently a candidate at [facility]. Colon cancer screening (45yo or family hx, IBD): never screened, declined PSA counseling (50 yo or 40yo AA, family hx, until age 70): n/a Mood: no concerns Sexual health: no concerns, not currently active Tobacco use: quit mid , 2 ppd for 50+ years - AAA (65-75 yo current/former smoker): not on file, do not see done at [facility] either - LDCT (50-80 yo w/ 20+ pack years current or quit in past 15y): last 2021. Repeat ordered Alcohol use: none Drug use: THC gummies, no drug use Home safety: no falls, walks w/ cane as needed due to fatigue Skin concerns: no concerns Dental: [facility], dentures and a plate Hearing: issues, has not had audiology eval Vision: uses readers Vaccinations: RSV given today. Advanced Directive: Full code for now, need to discuss as a family. Ok with intubation for respiratory failure. PMH: Active problems - Computerized Problem List is the source for the followin. Chronic ischemic heart disease (SNOMED CT [id number]) 2. Obesity 3. Edema of lower leg 4. Co-mgd [facility] Dr.Richard Mullen 5. Hip pain 6. Chronic obstructive lung disease - 06/2014 PFT: FEV1 62.9, FEV1/FVC 62 -> mod obstruction 7. Back pain 8. Shoulder pain 9. Hypertension 10. Hyperlipidemia 11. Hyperglycemia Allergies: Patient has answered NKA Meds: Reviewed & updated in CPRS. See EMR for details. EXAM: VS: Temp: 98.1 F [36.7 C] (03/07/2024 13:14) Pulse:58 (03/07/2024 13:14) BP: 122/75 (03/07/2024 13:25) Resp: 14 (03/07/2024 13:14) O2 sat: 96% (03/07/2024 13:14) Weight: Measurement DT WEIGHT LB(KG)[BMI] 03/07/2024 13:14 277.4(125.83)[38*] 03/04/2023 09:05 263.2(119.39)[36*] 02/23/2022 08:34 258(117.03)[35*] General: NAD HEENT: NCAT Lungs: end expiratory wheezes most prominent RLL. Mild dyspnea. No rhonchi, rales, crackles. CV: RRR, no m/r/g, no peripheral edema Abdomen: s/nt/nd Neuro: Ambulates with cane, alert & oriented, EOMI. Data/Labs: Reviewed in EMR. Labs completed prior to today's appointment were reviewed with patient during appointment. Assessment and Plan: #COPD with acute exacerbation 2014 PFTs w/ moderate obstruction. Evidence of acute exacerbation today w/ increased sputum production and chest tightness. Third exacerbation this year although has been managed w/ albuterol alone and no maintenance inhaler (Trelegy request received at [facility] from outside PCP, [facility] does not have Trelegy on formulary, no return fax received for formulary alternatives). He would like [facility] to take over COPD management to streamline-- recommend starting Stiolto for maintenance. GOLD group E w/ third exacerbation this year although not on optimized medical therapy. No peripheal eosinophilia or hx hospitalization. Will start LAMA/LABA. - start Stiolto maintenance inhaler 2 puffs daily - continue albuterol inhaler prn (refilled) - switch nebulizer to albuterol alone given LAMA in maintenance inhaler per [facility] guidelines - acute exacerbation - start 5d course prednisone 40 mg daily plus doxycycline 100 mg BID - COPD action plan given - decrease use of woodburning stove in home - consider pulmonary rehab referral pending improvement w/ maintenance inhaler #HTN Well controlled on metoprolol tartrate 50 mg BID - continue #CAD hx inferior STEMI s/p BMS at [facility] in 2007. Current LEVINE and chest tightness likely due to COPD, does not feel similar to prior IN. TTE normal 2021. - continue ASA/statin #Enlarged ascending aorta Seen on LDCT 2021, US at [facility] showed 4.1 cm normal for BSA - noted #Obesity BMI 37, he inquired about Ozempic today although had concerns about side effects. If he were to fail other oral med he would qualify for GLP1 with BMI >35 and ASCVD. We discussed pulmonary rehab to help w/ exercise tolerance would also be of benefit - RTC 4 mo to f/u on COPD, obesity - consider PACT pharmD referral for weight loss medication/MOVE if interested #Co-managed Has seen Dr. Mullen at [facility] for primary care. - transitioning pulmonary care to [facility] - this note to be faxed to Dr. Mullen for continuity of care [phone] ---> Dr. Mullen please fax any new [facility] by [facility] #[facility] - LDCT lung ordered - AAA screen ordered ([place]) When available, please see After Visit Summary in [employer] for additional information given to patient at time of visit. Education on Treatment Plan: Patient indicates readiness to learn, verbalizes understanding, agreement and satisfaction with the treatment plan. Denies further questions. Patient indicates readiness to learn and has been instructed on action, dose, frequency, and side effects of medications. Patient verbalizes understanding. Medication Reconciliation: Education Evaluations *Was medication education provided for NEW medications or CHANGES to medications? (including medication name, dose, route, reason for use, and potential side effects). Yes. Verbal education was provided to patient/caregiver and patient/caregiver verbalized understanding. TERATOGENIC MED & CONTRACEPTION REVIEW (Optional)... ======= MEDICATION RECONCILIATION ======= List Given: An updated medication list was provided to the patient/caregiver. Review Done: The medication list shown below was verified for accuracy and it includes all pending medications/active medications/all medications or discontinued within the last 90 days/all remote medications and non-VA medications. If a given category (i.e. remote meds) is not shown, that means that a patient doesn't have a medication(s) in that category. Allergies listed below were also reviewed/updated for accuracy. Allergies/ADR from [employer] may not display in CPRS. Use JLV MRT5 - Allergies/ADRs FACILITY ALLERGY/ADR -------- No Remote Allergy/ADR Data available for this patient [facility] No Known Allergies Active and Recently Outpatient Medications (including Supplies): Issue Date Status Last Fill Active Outpatient Medications Refills Expiration 1) ATORVASTATIN CALCIUM 80MG TAB Qty: 45 ACTIVE Issu:11-25-23 for 90 days Sig: TAKE ONE-HALF TABLET Refills: 3 Last:01-23-24 BY MOUTH AT BEDTIME FOR CHOLESTEROL Expr:11-25-24 Issue Date Status Last Fill Pending Outpatient Medications Refills Expiration 1) ALBUTEROL 90MCG (CFC-F) 200D ORAL INHL PENDING Qty: 2 Sig: INHALE 2 PUFFS BY Refills: 0 INHALATION FOUR TIMES A DAY NEEDED 2) ALBUTEROL SO4 0.083% INHL 3ML Qty: 90 PENDING Sig: INHALE 3ML NEBS FOUR TIMES A DAY Refills: 0 NEEDED 3) OLODATEROL/TIOTROP 2.5MCG/ACTUAT 60D INH PENDING Qty: 3 Sig: INHALE 2 PUFFS BY Refills: 0 INHALATION EVERY DAY 4) PREDNISONE 20MG TAB Qty: 10 Sig: TAKE PENDING TWO TABLETS BY MOUTH EVERY MORNING Refills: 0 Issue Date Status Last Fill Inactive Outpatient Medications Refills Expiration 1) ALBUTEROL 3/IPRATROP 0.5MG/3ML INHL 3ML DISCONTINUED Issu:07-18-23 Qty: 360 for 90 days Sig: INHALE 3ML Refills: 2 Last:03-06-24 IN NEBULIZER BY INHALATION FOUR TIMES Expr:07-18-24 A DAY FOR COPD 2) ATORVASTATIN CALCIUM 80MG TAB Qty: 45 DISCONTINUED Issu:02-05-23 for 90 days Sig: TAKE ONE-HALF TABLET Refills: 0 Last:10-25-23 BY MOUTH AT BEDTIME FOR CHOLESTEROL Expr:02-06-24 3) METOPROLOL TARTRATE 50MG TAB Qty: 180 Issu:03-04-23 for 90 days Sig: TAKE ONE TABLET BY Refills: 0 Last:02-14-24 MOUTH TWICE A DAY Expr:03-04-24 4) OMEPRAZOLE 20MG EC CAP Qty: 90 for 90 Issu:03-04-23 days Sig: TAKE ONE CAPSULE BY MOUTH Refills: 0 Last:01-26-24 EVERY DAY Expr:03-04-24 5) OMEPRAZOLE 20MG EC CAP Qty: 90 for 90 DISCONTINUED Issu:11-08-22 days Sig: TAKE ONE CAPSULE BY MOUTH Refills: 1 Last:01-29-23 EVERY DAY Expr:11-09-23 Start Date Active Non-VA Medications Refills Expiration 1) Non-VA ASPIRIN TAB SiMG MOUTH ACTIVE EVERY DAY 2) Non-VA IBUPROFEN 200MG TAB SiMG ACTIVE MOUTH THREE TIMES A DAY NEEDED 12 Total Medications Colonoscopy GAP Reminder: Recommendations are needed in the clinical reminder system following the patient's most recent colorectal cancer screening/surveillance test (Colonoscopy, Sigmoidoscopy or CT Colonography) Patient declined average risk screening. HTN Assess for Elevated BP>=140/90: The patient's blood pressure is usually adequately controlled. No medication changes are indicated at this time. /ana lilia WARD STAFF PHYSICIAN Signed: 03/07/2024 15:15 03/08/2024 ADDENDUM STATUS: COMPLETED LDCT lung clarification: & confirmed he actually quit smoking mid (they believe 2013) as mentioned in my note above. Still appropriate for screening w/ 100 pack years and quit ~10 y ago. Please call to schedule. /ana lilia WARD STAFF PHYSICIAN Signed: 03/08/2024 13:27 Receipt Acknowledged By: 03/12/2024 09:58 /nayt/ WYATT MORENO MA, RN LCS Extractor Filler 04/03/2024 ADDENDUM STATUS: COMPLETED Called w/ results of PFTs which show obstruction, FEV1 worse from prior. His COPD exacerbation resolved quickly w/ steroids/doxy and his breathing was at baseline at time of PFTs. Pulmonology consulted placed as he still wishes to transfer care to [facility]. /ana lilia WARD STAFF PHYSICIAN Signed: 04/03/2024 17:03 MALLIKA WARD [facility] Mar 07, 2024 01:16 PM INTERNAL MEDICINE OUTPATIENT NOTE: LOCAL TITLE: MEDICINE CLINIC NURSING NOTE STANDARD TITLE: INTERNAL MEDICINE OUTPATIENT NOTE DATE OF NOTE: MAR 07, 2024@13:16 ENTRY DATE: MAR 07, 2024@13:17:05 AUTHOR: JAJA VILLEGAS EXP COSIGNER: URGENCY: STATUS: COMPLETED MEDICINE CLINIC NURSING NOTE Has ADDENDA TYPE OF VISIT: Appointment Check In Type of appointment: In-person appointment REASON FOR VISIT: copd, ozempic, chest cold with mucous ALLERGIES: Patient has answered NKA VITAL SIGNS: Blood Pressure: 145/72 (03/07/2024 13:14) Pulse: 58 (03/07/2024 13:14) Respiration: 14 (03/07/2024 13:14) Temperature: 98.1 F [36.7 C] (03/07/2024 13:14) Weight: 277.4 lb [125.83 kg] (03/07/2024 13:14) Height: 72 in [182.9 cm] (03/04/2023 09:05) BMI: 37.7 O2 Sat: 96% (03/07/2024 13:14) Pain: 0 (03/07/2024 13:14) PAIN SCREEN: Patient is not having significant pain that they wish to discuss with their provider today. MEDICATION Over the Counter/Herbal Medications: The patient denies taking any outside medications or herbals. Suicide Screen: C-SSRS Screening [place] Suicide Severity Rating Scale (C-SSRS) screener 1. Over the past month, have you wished you were or wished you could go to sleep and not wake up? No 2. Over the past month, have you had any actual thoughts of killing yourself? No 3. Over the past month, have you been thinking about how you might do this? Response not required due to responses to other questions. 4. Over the past month, have you had these thoughts and had some intention of acting on them? Response not required due to responses to other questions. 5. Over the past month, have you started to work out or worked out the details of how to kill yourself? Response not required due to responses to other questions. 6. If yes, at any time in the past month did you intend to carry out this plan? Response not required due to responses to other questions. 7. In your lifetime, have you ever done anything, started to do anything, or prepared to do anything to end your life (for example, collected pills, obtained a gun, gave away valuables, went to the roof but didn't jump)? No 8. If YES, was this within the past 3 months? Response not required due to responses to other questions. Tobacco Use Screening: The patient is a former cigarette smoker. The patient has never used other types of tobacco. Depression Screening: Perform PHQ-2 A PHQ-2 screen was performed. The score was 0 which is a negative screen for depression. Over the past two weeks, how often have you been bothered by the following problems? 1. Little interest or pleasure in doing things Not at all 2. Feeling down, depressed, or hopeless Not at all Alcohol Use Screen (AUDIT-C): Alcohol Screen: SCREEN FOR ALCOHOL (AUDIT-C) An alcohol screening test (AUDIT-C) was negative (score=1). 1. How often did you have a drink containing alcohol in the past year? Consider a drink to be a 12 ounce can or bottle of regular beer, 8 ounces of malt liquor, a 5 ounce glass of table wine, or a 1.5 ounce shot of liquor (like scotch, gin, or vodka). Monthly or less 2. How many drinks containing alcohol did you have on a typical day when you were drinking in the past year? One or two drinks 3. How often did you have six or more drinks on one occasion in the past year? Never PTSD Screening: PC-PTSD-5 A PTSD screening test (PC-PTSD-5) was negative (score=0). IN THE PAST MONTH, have you ever had any experience that was so frightening, horrible or traumatic. For example: A serious accident or fire a physical or sexual assault or abuse An earthquake or flood A war Seeing someone be killed or seriously injured Having a loved one through homicide or suicide 1. Have you ever experienced this kind of event? YES 2. Had nightmares about the event(s) or thought about the event(s) when you did not want to? NO 3. Tried hard not to think about the event(s) or went out of your way to avoid situations that reminded you of the event(s)? NO 4. Been constantly on guard, watchful, or easily startled? NO 5. [place] numb or detached from people, activities, or your surroundings? NO 6. [place] guilty or unable to stop blaming yourself or others for the event(s) or any problems the event(s) may have caused? NO Homelessness/Food Insecurity Screen: In the past 2 months, have you been living in stable housing that you own, rent, or stay in as part of a household? Yes - Living in stable housing. Are you worried or concerned that in the next 2 months you may NOT have stable housing that you own, rent, or stay in as part of a household? No - Not worried about housing near future [facility] reports the following: Within the past 12 months, you worried whether your food would run out before you got money to buy more. Never true Within the past 12 months, the food you bought just didn't last and you didn't have money to get more. Never true Food Assistance Programs [facility] Food Assistance Programs [facility] Annual Screening: Whole Health Screen is due OR due soon (within 90 days). Whole Health Screening Why is addressing your overall health important to you? for family What do you want your health for (why do you want to be healthy)? for family Fall History Screen During the past 12 months, have you had any falls? Patient does not report any falls in the past 12 months. MEDICATIONS: Patient is on one of the following medication classes: Antihypertensives, Antidepressants, Antipsychotics, Diuretics, or Controlled substance medication used for pain. Script Talk Screen Are you able to read your prescription bottles with your glasses, magnifiers or other aids? Yes or patient not taking any prescriptions. Skin Screen Patient reports any current pressure ulcers, a history of pressure ulcers, or a wound from a medical coder or Patient is bed-confined or a wheelchair-user or Patient requires assistance to transfer/change position No, Skin Screen is Negative Home Abuse/Violence Screen Is your home free of abuse and violence? Yes MOVE! Program Screen Body Mass Index (BMI)= 37.7 [place]: Collection DT Specimen Test Name Result Units Ref Range 03/04/2023 10:11 BLOOD !! HEMOGLOBIN A1C 5.6 % 4.0 - 6.0 !! Indicates COMMENTS AVAILABLE...Refer to Interim Lab Report. [facility] Hgb A1C: No data available [place] Hgb A1C: No data available Point of Care Hgb A1C: POC HGB A1C____ Outpatient Nutrition Screen Body Mass Index (BMI)= 37.7 [place]: Collection DT Specimen Test Name Result Units Ref Range 03/04/2023 10:11 BLOOD !! HEMOGLOBIN A1C 5.6 % 4.0 - 6.0 !! Indicates COMMENTS AVAILABLE...Refer to Interim Lab Report. [facility] Hgb A1C: No data available [place] Hgb A1C: No data available Point of Care Hgb A1C: POC HGB A1C____ Is patient's BMI less than 18.5? No Does patient have swallowing, coughing, or chewing problems affecting oral intake? No Has patient experienced unplanned weight loss or gain greater than 10 pounds over the last 2 months? No Is patient's Hgb A1C (Glycosylated Hemoglobin) greater than 9.5? No Is patient receiving Total Parenteral Nutrition (TPN) or Tube Feedings? No Patient Health Education Screen BARRIERS/SPECIAL NEEDS: No barriers identified PREFERRED STYLE OF LEARNING: Listening Client Assistive Service (SANTANA) Screen Does the patient require assistance with outpatient visit? No /naty/ JAJA VILLEGAS LPN Signed: 03/07/2024 13:33 03/07/2024 ADDENDUM STATUS: COMPLETED Respiratory Syncytial Virus (RSV) Vaccine: RSV vaccine administered today. Administered: RSV, BIVALENT, PROTEIN SUBUNIT RSVPREF, DILUENT RECONSTITUTED, 0.5 ML, PF Date Administered: Mar 07, 2024 14:00 Sanforizer: CritiSense Lot: [id number] Exp Date: Dec 25, 2024 NDC: [id number] Admin Route/Site: INTRAMUSCULAR/LEFT DELTOID Dosage: 0.5mL Vaccine Information Statement(s): RSV (RESPIRATORY SYNCYTIAL VIRUS) VACCINE VIS Jan 12, 2024 (YAKUT) Order By: Policy Administered By: Jaja Villegas Vaccine Information Sheet (VIS) was given to the patient/caregiver, education regarding adverse reactions was discussed, as well as barriers to learning, if any, were acknowledged. /naty/ JAJA VILLEGAS LPN Signed: 03/07/2024 14:38 JAJA VILLEGAS [facility]
--- OUTSIDE RECORDS SUMMARY | 2024-03-12 04:58 | XMS_ITS | Encounter Summary ---
Author Name [facility] [place]) [facility] Address [address] [place] [address] Care Team Providers Care Dairy Husbandry Worker Name Role Phone MALLIKA WARD Primary Care [...] Name Patient's Relationship to Policy No [facility] (WNR) MEDICARE ADVANTAGE [facility] (WNR) Dec 26, 2022 [id number] KEM SAMANIEGO PATIENT [facility] OF [facility] (WNR) MEDICARE (M) MEDIC ARE REPLA PEGHILARY Mina Mar 28, 2019 REPLACE [facility] [id number] KEM SAMANIEGO PATIENT Selected Encounter This section includes the information on record at [place] for the Encounter. Date/Time Encounter Type Encounter Description Reason Provider Source Mar 12, 2024 09:58 AM Outpatient Encounter ADMIN PAT ACTIVTIES (MASNONCT) WYATT MORENO Encounter Template Text not used by [place] Plan of Treatment: Future Appointments (+ 6 months) and Future Tests (+/- 45 days) The Plan of Treatment section includes future care activities for the [facility] [place] [facility] This section includes future appointments and future orders which are active, pending or scheduled. Future Appointments This section includes appointments that were scheduled to occur 6 months from the date of the Encounter, up to a maximum of 20 appointments. The data comes from all [place] treatment facilities. Appointment Date/Time Appointment Type Appointme nt Facility Name Mar 30, 2024 11:20 AM AMBULATORY - MEDICINE [facility] Apr 30, 2024 11:30 AM [facility] Apr 30, 2024 12:30 PM [facility] Apr 30, 2024 01:15 PM [facility] Apr 30, 2024 02:00 PM [facility] August 03, 2024 01:30 PM AMBULATORY - MEDICINE [facility] Lab Results: +/- 30 days of the encounter This section includes the Chemistry and Hematology Lab Results on record with [place] for the patient. Radiology Reports and Pathology Reports are provided separately, in subsequent sections. Lab Results This section contains the Chemistry/Hematology Results that were resulted 30 days before or 30 daysafter the date of the Encounter. Date/Time Source Result Type Result - Unit Interpretation Reference Range Specimen Type Comment Mar 07, 2024 12:35 PM [facility] AST/SGOT PLASMA Specimen Type: PLASMA No comment entered. Ordering Provider: HAKEEM DORADO Report Released Date/Time: Mar 04, 2023 07:12 PM Reporting Lab: [facility] [phone] Performing Lab: [facility] [id number] AST/SGOT 27 U/L -Mar 07, 2024 12:35 PM [facility] HEMOGLOBIN A1C BLOOD Specimen Type: BLOOD Comment: Values obtained from A1C measurements can vary. For typical A1C assays, a reported value of 7.0 could actually be between 6.7 and 7.3 if measured by a reference method. A reported value of 9.0 could actually be between 8.7 and 9.3. Ref: http://www.ngsp.org/CAPdata.asp Ordering Provider: HAKEEM DORADO Report Released Date/Time: Mar 04, 2023 07:12 PM Reporting Lab: [facility] [address] Performing Lab: [facility] [address] HEMOGLOBIN A1C 5.6 4.0-6.0 Mar 07, 2024 12:35 PM [facility] BASIC METABOLIC PANEL+MG PLASMA Spe cimen Type: PLASMA No comment entered. Ordering Provider: HAKEEM DORADO Report Released Date/Time: Mar 04, 2023 07:12 PM Reporting Lab: [facility] [address] Performing Lab: [facility] [address] CREATININE 1.2 mg/dL 0.7-1.2 UREA NITROGEN 17 mg/dL 8-26 GLUCOSE 91 mg/dL 70-100 SODIUM 138 mmol/L 136-145 POTASSIUM 4.9 mmol/L 3.5-5.1 CHLORIDE 104 mmol/L 98-107 CO2 30 mmol/L H 22-29 CALCIUM 9.1 mg/dL 8.4-10.2 MAGNESIUM 2.1 mg/dL 1.6-2.6 ANION GAP 4 mmol/L L 5-15 .CREAT EGFR(CKD-EPI) 63 >60 Mar 07, 2024 12:35 PM [facility] ALT/SGPT PLASMA Specimen Type: PLASMA No comment entered. Ordering Provider: HAKEEM DORADO Report Released Date/Time: Mar 04, 2023 07:12 PM Reporting Lab: [facility] [address] Performing Lab: [facility] [address] ALT/SGPT 23 U/L <44 Mar 07, 2024 12:35 PM [facility] CBC & DIFF BLOOD Specimen Type: BLOOD Comment: Automated Differential Performed Ordering Provider: HAKEEM DORADO Report Released Date/Time: Mar 04, 2023 07:12 PM Reporting Lab: [facility] [address] Performing Lab: [facility] [address] WBC 8.7 4.0-11.0 RBC 4.39 L 4.60-6.20 [...] 0.0 0.0-0.1 Mar 07, 2024 12:35 PM [facility] LIPID PANEL,NON-FASTING PLASMA Spec imen Type: PLASMA No comment entered. Ordering Provider: MALLIKA WARD Report Released Date/Time: Mar 07, 2024 02:24 PM Reporting Lab: [facility] [address] Performing Lab: [facility] [address] CHOLESTEROL 137 mg/dL <199 .HDL 51 mg/dL >40 LDL CALCULATION 68 mg/dL <99 VLDL CALCULATION 18 mg/dL <29 NON HDL CHOLESTEROL 86 mg/dL <129 TRIG(NON FASTING) 88 mg/dL <149 Social History: Smoking Status (Most current) and Tobacco Use (All prior to encounter date) This section includes the most current, and the historical, smoking and tobacco- related health factors from the [facility] where the Encounter took place. Current Smoking Status This section includes the most current smoking, or tobacco-related health factor, from the [place] facility where the Encounter took place. Date/Time Current Smoking Status Comment Lillian ity Mar 07, 2024 02:00 PM [place]-TOBACCO USE FORMER CIGARETTES [facility] Tobacco Use History This section includes a history of the smoking, or tobacco-related health factors, that were collected on or before the date of the Encounter. The data comes from the [place] facility where the Encounter took place. Date/Time Smoking Status/Tobacco Use Comment F acility Mar 07, 2024 02:00 PM VA-TOBACCO USE FORMER CIGARETTES [facility] Mar 04, 2023 09:30 AM VA-TOBACCO FORMER USER [facility] Mar 04, 2023 09:30 AM VA-TOBACCO QUIT 5 TO < 15 YRS [facility] Feb 16, 2021 03:15 PM VA-TOBACCO FORMER USER [facility] Feb 16, 2021 03:15 PM VA-TOBACCO QUIT 5 TO < 15 YRS [facility] Dec 11, 2018 10:30 AM VA-TOBACCO FORMER USER [facility] Dec 11, 2018 10:30 AM VA-TOBACCO QUIT 15 YRS OR MORE [facility] Nov 09, 2017 10:23 AM FORMER TOBACCO USER 7Y OR GREATE R [facility] Dec 29, 2016 09:20 AM FORMER TOBACCO USER 7Y OR GREATE R [facility] Mar 03, 2016 10:14 AM FORMER TOBACCO USER 7Y OR GREATE R [facility] Feb 19, 2015 10:23 AM FORMER TOBACCO USE >1Y <7Y [facility] Feb 06, 2014 08:50 AM FORMER TOBACCO USE >1Y <7Y [facility] Encounter Notes: All associated encounter notes This section contains the clinical notes associated to the Encounter. Date/Time Encounter Note(s) Provider Source Mar 12, 2024 09:59 AM PULMONARY NOTE: LOCAL TITLE: PULMONARY LUNG CANCER SCREENING STANDARD TITLE: PULMONARY NOTE DATE OF NOTE: MAR 12, 2024@09:59 ENTRY DATE: MAR 12, 2024@09:59:09 AUTHOR: WYATT MORENO EXP COSIGNER: URGENCY: STATUS: COMPLETED Cigarette Pack Year History: The patient previously used cigarettes and quit smoking less than 15 years ago. Year the patient quit smoking: Date: 2013 ? Exact date is unknown How many years have you smoked cigarettes? # of years: 50 Average number of packs/day over the entire time patient smoked: Packs/day: 2 CPY revised based on pcp clinic note dated 03/07/24. /naty/ WYATT MORENO MA, RN LCS Plate Colorer Signed: 03/12/2024 10:00 WYATT MORENO [facility]
--- OUTSIDE RECORDS SUMMARY | 2024-03-12 08:29 | XMS_ITS | Encounter Summary ---
Author Name [facility] [place] [place] [facility] Address [address] [place] [address] Care Team Providers Care Supervisor Case Loading Name Role Phone MALLIKA WARD Primary Care [...] No's Name Patient's Relationship to Policy No [facility] (WNR) MEDICARE ADVANTAGE [facility] (WNR) Dec 26, 2022 [id number] KEM SAMANIEGO PATIENT [facility] (WNR) MEDICARE (M) MEDIC ARE REPLA PEGHILARY Mina Mar 28, 2019 RE[facility] [id number] KEM SAMANIEGO PATIENT Selected Encounter This section includes the information on record at [place] for the Encounter. Date/Time Encounter Type Encounter Description Reason Provider Source Mar 12, 2024 01:29 PM Outpatient Encounter ADMIN PAT ACTIVTIES (MASNONCT) MALLIKA WARD [facility] Encounter Template Text not used by [place] Plan of Treatment: Future Appointments (+ 6 months) and Future Tests (+/- 45 days) The Plan of Treatment section includes future care activities for the patient [facility] [place] [facility] This section includes future appointments and future orders which are active, pending or scheduled. Future Appointments This section includes appointments that were scheduled to occur 6 months from the date of the Encounter, up to a maximum of 20 appointments. The data comes from all [place] treatment facilities. Appointment Date/Time Appointment Type Appointme nt Facility Name Mar 30, 2024 11:20 AM AMBULATORY - MEDICINE [facility] Apr 30, 2024 11:30 AM [facility] Apr 30, 2024 12:30 PM [facility] - NONE [place] [facility] Apr 30, 2024 01:15 PM [facility] Apr 30, 2024 02:00 PM [facility] August 03, 2024 01:30 PM AMBULATORY - MEDICINE [facility] Lab Results: +/- 30 days of the encounter This section includes the Chemistry and Hematology Lab Results on record with [place] for the patient. Radiology Reports and Pathology Reports are provided separately, in subsequent sections. Lab Results This section contains the Chemistry/Hematology Results that were resulted 30 days before or 30 daysafter the date of the Encounter. Date/Time Source Result Type Result - Unit Interpretation Reference Range Specimen Type Comment Mar 07, 2024 12:[address] [facility] HEMOGLOBIN A1C BLOOD Specimen Type: BLOOD [...] Mar 04, 2023 07:12 PM Reporting Lab: [facility] [id number] Performing Lab: [facility] [address] HEMOGLOBIN A1C 5.6 4.0-6.0 Mar 07, 2024 12:[address] [facility] AST/SGOT PLASMA Specimen Type: PLASMA No comment entered. Ordering Provider: HAKEEM DORADO Report Released Date/Time: Mar 04, 2023 07:12 PM Reporting Lab: [facility] [address] Performing Lab: [facility] [address] AST/SGOT 27 U/L 11-34 Mar 07, 2024 12:[address] [facility] ALT/SGPT PLASMA Specimen Type: PLASMA No comment entered. Ordering Provider: HAKEEM DORADO Report Released Date/Time: Mar 04, 2023 07:12 PM Reporting Lab: [facility] [id number] Performing Lab: [facility] [address] ALT/SGPT 23 U/L <44 Mar 07, 2024 12:[address] [facility] BASIC METABOLIC PANEL+MG PLASMA Spe cimen Type: PLASMA No comment entered. Ordering Provider: HAKEEM DORADO Report Released Date/Time: Mar 04, 2023 07:12 PM Reporting Lab: [facility] [address] Performing Lab: [facility] [address] CREATININE 1.2 mg/dL 0.7-1.2 UREA NITROGEN 17 mg/dL 8-26 GLUCOSE 91 mg/dL 70-100 SODIUM 138 mmol/L 136-145 POTASSIUM 4.9 mmol/L 3.5-5.1 CHLORIDE 104 mmol/L 98-107 CO2 30 mmol/L H 22-29 CALCIUM 9.1 mg/dL 8.4-10.2 MAGNESIUM 2.1 mg/dL 1.6-2.6 ANION GAP 4 mmol/L L 5-15 .CREAT EGFR(CKD-EPI) 63 >60 Mar 07, 2024 12:[address] [facility] CBC & DIFF BLOOD Specimen Type: BLOOD Comment: Automated Differential Performed Ordering Provider: HAKEEM DORADO Report Released Date/Time: Mar 04, 2023 07:12 PM Reporting Lab: [facility] [id number] Performing Lab: [facility] [address] WBC 8.7 4.0-11.0 RBC 4.39 L 4.60-6.20 [...] 0.0 0.0-0.1 Mar 07, 2024 12:[address] [facility] LIPID PANEL,NON-FASTING PLASMA Spec imen Type: PLASMA No comment entered. Ordering Provider: MALLIKA WARD Report Released Date/Time: Mar 07, 2024 02:24 PM Reporting Lab: [facility] [phone] Performing Lab: [facility] [address] CHOLESTEROL 137 mg/dL <199 .HDL 51 mg/dL >40 LDL CALCULATION 68 mg/dL <99 VLDL CALCULATION 18 mg/dL <29 NON HDL CHOLESTEROL 86 mg/dL <129 TRIG(NON FASTING) 88 mg/dL <149 Social History: Smoking Status (Most current) and Tobacco Use (All prior to encounter date) This section includes the most current, and the historical, smoking and tobacco- related health factors from the [facility] where the Encounter took place. Current Smoking Status This section includes the most current smoking, or tobacco-related health factor, from the [place] facility where the Encounter took place. Date/Time Current Smoking Status Comment Lillian ity Mar 07, 2024 02:00 PM [place]-TOBACCO USE FORMER CIGARETTES [facility] Tobacco Use History This section includes a history of the smoking, or tobacco-related health factors, that were collected on or before the date of the Encounter. The data comes from the [place] facility where the Encounter took place. Date/Time Smoking Status/Tobacco Use Comment F acility Mar 07, 2024 02:00 PM VA-TOBACCO USE FORMER CIGARETTES [facility] Mar 04, 2023 09:30 AM VA-TOBACCO FORMER USER [facility] Mar 04, 2023 09:30 AM VA-TOBACCO QUIT 5 TO < [address] [facility] Feb 16, 2021 03:15 PM VA-TOBACCO FORMER USER [facility] Feb 16, 2021 03:15 PM VA-TOBACCO QUIT 5 TO < [address] [facility] Dec 11, 2018 10:30 AM VA-TOBACCO FORMER USER [facility] Dec 11, 2018 10:30 AM VA-TOBACCO QUIT [address] [facility] Nov 09, 2017 10:23 AM FORMER TOBACCO USER 7Y OR GREATE R [facility] Dec 29, 2016 09:20 AM FORMER TOBACCO USER 7Y OR GREATE R [facility] Mar 03, 2016 10:14 AM FORMER TOBACCO USER 7Y OR GREATE R [facility] Feb 19, 2015 10:23 AM FORMER TOBACCO USE >1Y <7Y [facility] Feb 06, 2014 08:50 AM FORMER TOBACCO USE >1Y <7Y [facility] Encounter Notes: All associated encounter notes This section contains the clinical notes associated to the Encounter. Date/Time Encounter Note(s) Provider Source Mar 12, 2024 01:31 PM PULMONARY NOTE: LOCAL TITLE: PULMONARY LUNG CANCER SCREENING STANDARD TITLE: PULMONARY NOTE DATE OF NOTE: MAR 12, 2024@13:31 ENTRY DATE: MAR 12, 2024@13:31:15 AUTHOR: WYATT MORENO EXP COSIGNER: URGENCY: STATUS: COMPLETED Lung Cancer Screening Patient Management *REPEAT ANNUAL SCREENING* - [place] remains eligible for lung cancer screening based on age, smoking history and the absence of signs or symptoms of lung cancer. /naty/ WYATT MORENO MA, RN LCS Cashier Associate Signed: 03/12/2024 13:[address] [facility]
--- OUTSIDE RECORDS SUMMARY | 2024-04-30 06:30 | XMS_ITS | Encounter Summary ---
Author Name [facility] Organization [facility] Address [address] [place] [address] Care Team Providers Care Boiler Tube Blower Name Role Phone MALLIKA WARD Primary Care [...] No's Name Patient's Relationship to Policy No [facility] (WNR) MEDICARE ADVANTAGE [facility] (WNR) Dec 26, 2022 [id number] AXEL SAMANIEGO PATIENT [facility]-CARE OF [facility] (WNR) MEDICARE (M) MEDIC ARE REPLA SÁNCHEZ Mina Mar 28, 2019 REPLACE [facility] [id number] AXEL SAMANIEGO PATIENT Selected Encounter This section includes the information on record at ME for the Encounter. Date/Time Encounter Type Encounter Description Reason Provider Source Apr 30, 2024 11:30 AM OFFICE O/P NEW MOD 45 MIN PULMONARY/CHEST ICD-10-CM J44.9 Chronic obstructive pulmonary disease, unspecified STEPHY INTERIANO K IHE Encounter Template Text not used by ME Assessments - Encounter Diagnoses This section includes the primary and secondary diagnoses documented for the Encounter. Date/Time Primary/Secondary Diagnosis Diagnosis Name Provider Source May 01, 2024 08:58 AM PRIMARY Chronic obstructive pulmonary disease, unspecified LAISHA,SHIVANIA FREDDYE K [facility] May 01, 2024 08:58 AM SECONDARY Obesity, unspecified LAISHA,ARIA NNE K [facility] Plan of Treatment: Future Appointments (+ 6 months) and Future Tests (+/- 45 days) The Plan of Treatment section includes future care activities for the patient from all [facility]. This section includes future appointments and future orders which are active, pending or scheduled. Future Appointments This section includes appointments that were scheduled to occur 6 months from the date of the Encounter, up to a maximum of 20 appointments. The data comes from all [place] treatment facilities. Appointment Date/Time Appointment Type Appointme nt Facility Name August 03, 2024 01:30 PM AMBULATORY - MEDICINE [facility] Vital Signs: All taken on the encounter date This section contains inpatient and outpatient Vital Signs collected on the date of the Encounter. Date/Time Temperature Pulse Blood Pressure Respiratory Rate SP02 Pain Height Weight Body Mass Index Source Apr 30, 2024 11:35 AM 99 56 152/80 19 95 5 277.7 38 [facility] Social History: Smoking Status (Most current) and Tobacco Use (All prior to encounter date) This section includes the most current, and the historical, smoking and tobacco- related health factors from the [place] facility where the Encounter took place. Current Smoking Status This section includes the most current smoking, or tobacco-related health factor, from the ME facility where the Encounter took place. Date/Time Current Smoking Status Comment Lillian ity Mar 07, 2024 02:00 PM VA-TOBACCO USE FORMER CIGARETTES [facility] Tobacco Use History This section includes a history of the smoking, or tobacco-related health factors, that were collected on or before the date of the Encounter. The data comes from the ME facility where the Encounter took place. Date/Time Smoking Status/Tobacco Use Comment F acility Mar 07, 2024 02:00 PM ME-TOBACCO USE FORMER CIGARETTES [facility] Mar 04, 2023 09:30 AM ME-TOBACCO FORMER USER [facility] Mar 04, 2023 09:30 AM ME-TOBACCO QUIT 5 TO < [address] [facility] Feb 16, 2021 03:15 PM VA-TOBACCO FORMER USER [facility] Feb 16, 2021 03:15 PM VA-TOBACCO QUIT 5 TO < [address] [facility] Dec 11, 2018 10:30 AM VA-TOBACCO FORMER USER [facility] Dec 11, 2018 10:30 AM VA-TOBACCO QUIT [address] [facility] Nov 09, 2017 10:23 AM FORMER TOBACCO USER 7Y OR GREATE R [facility] Dec 29, 2016 09:20 AM FORMER TOBACCO USER 7Y OR GREATE R [facility] Mar 03, 2016 10:14 AM FORMER TOBACCO USER 7Y OR GREATE R [facility] Feb 19, 2015 10:23 AM FORMER TOBACCO USE >1Y <7Y [facility] Feb 06, 2014 08:50 AM FORMER TOBACCO USE >1Y <7Y [facility] Radiology Reports: +/- 30 days of the encounter Radiology Reports For cases when an order for radiology services may have been completed prior to the date of the Encounter, the report list includes the Radiology Reports that were completed up to 30 days before dateof the Encounter. For cases when an order for radiology services may have been completed after the date of the Encounter, the report list also includes the Radiology Reports that were completed up to30 days after date of the Encounter. The data comes from all [place] treatment facilities. Date/Time Radiology Report Provider Source Apr 30, 2024 01:35 PM SHOULDER RIGHT 2-3 VIEWS: AXEL SAMANIEGO [id number] -[id number] M Exm Date: APR 30, 2024@13:35 Req Phys: MALLIKA WRAD Pat Loc: [facility] PACT DERRELL 4E (Req'g Loc) Img Loc: MAIN X-RAY Service: [place] [address] (Case [id number] COMPLETE) SHOULDER RIGHT 2-3 VIEWS (RAD Detailed) CPT:61691 Proc Modifiers : RIGHT Reason for Study: shoulder pain Clinical History: Orange IS NOT under investigation for COVID-19 or is COVID-19 negative shoulder pain Responsible provider name and phone number to notify for critical findings if other than user placing the order and pager listed below: User placing orders pager: [phone] LAST CREATININE 1.2 (03/07/24) Report Status: Verified Date Reported: APR 30, 2024 Date Verified: APR 30, 2024 Designer And Patternmaker E-Sig:/ES/LI VÁZQUEZ DO Report: EXAMINATION: SHOULDER RIGHT 2-3 VIEWS 04/30/2024 1:35 PM INDICATION: shoulder pain COMPARISON: None Impression: No acute fracture, dislocation or AC separation. The humeral head is not high riding. Moderate hypertrophic AC joint degenerative change. Moderate glenohumeral joint degenerative change with joint space narrowing and osteophyte formation. Report Sign Date/Time: 04/30/2024 2:29 PM Primary Interpreting Staff: LI VÁZQUEZ DO, RADIOLOGIST (Designer And Patternmaker) /DDS LI VÁZQUEZ [facility] Apr 30, 2024 01:35 PM HIP LEFT 2 VIEWS W /PELVIS: AXEL SAMANIEGO [id number] -1945 M Exm Date: APR 30, 2024@13:35 Req Phys: MALLIKA WARD Pat Loc: [facility] PACT [facility]RE[facility] 4E (Req'g Loc) Img Loc: MAIN X-RAY Service: [place] [address] (Case [id number] COMPLETE) HIP LEFT 2 VIEWS W/PELVIS (RAD Detailed) CPT:25834 Proc Modifiers : LEFT Reason for Study: pain hx julieta Clinical History: IS NOT under investigation for COVID-19 or is COVID-19 negative l hip pain Responsible provider name and phone number to notify for critical findings if other than user placing the order and pager listed below: User placing orders pager: [phone] LAST CREATININE 1.2 (03/07/24) Report Status: Verified Date Reported: APR 30, 2024 Date Verified: APR 30, 2024 Designer And Patternmaker E-Sig:/ES/LI VÁZQUEZ DO Report: EXAMINATION: HIP LEFT 2 VIEWS W/PELVIS 04/30/2024 1:35 PM INDICATION: pain hx julieta COMPARISON: 11/04/2017 Impression: There has been interval right total hip arthroplasty. Hardware appears grossly intact and in appropriate alignment. Left total hip arthroplasty appears stable and intact and in appropriate alignment. No acute fracture or dislocation. No diastases of the pubic symphysis or SI joints. There is vascular calcification. Report Sign Date/Time: 04/30/2024 2:37 PM Primary Interpreting Staff: LI VÁZQUEZ DO, RADIOLOGIST (Designer And Patternmaker) /DDS LI VÁZQUEZ [facility] Apr 30, 2024 01:02 PM LDCT LUNG CANCER SCREENING: AXEL SAMANIEGO [id number] -1945 M Exm Date: APR 30, 2024@13:02 Req Phys: MALLIKA WARD Pat Loc: [facility] PULM CHART [facility] (Req' Img Loc: CT IMAGING Service: [place] [address] (Case [id number] COMPLETE) LDCT LUNG CANCER SCREENING (CT Detailed) CPT:39283 Reason for Study: LDCT for LUNG CANCER SCREENING (ANNUAL) Clinical History: LDCT for LUNG CANCER SCREENING (ANNUAL) LAST 3: Collection DT Specimen Test Name Result Units Ref Range 03/07/2024 12:35 PLASMA CREATININE 1.2 mg/dL 0.7 - 1.2 03/04/2023 10:11 PLASMA CREATININE 1.1 mg/dL 0.7 - 1.2 02/23/2022 08:09 PLASMA CREATININE 1.0 mg/dL 0.7 - 1.2 03/07/2024 12:35 PLASMA .CREAT EGFR(CKD-E 63 Ref: >=60 03/04/2023 10:11 PLASMA .CREAT EGFR(CKD-E 70 Ref: >=60 02/23/2022 08:09 PLASMA .CREAT EGFR(CKD-E 79 Ref: >=60 Allergies: (Fontana only) Patient has answered NKA Defer to radiologist for final CT protocol. My pager number on record is: . I confirm that the pager number above is correct Trainees only: Enter your staff provider's info here: Per Joint Commission Standards, by signing this diagnostic imaging request the ordering provider confirms they have considered patients age and recent imaging history. Report Status: Verified Date Reported: APR 30, 2024 Date Verified: APR 30, 2024 Designer And Patternmaker E-Sig:/ES/RICHA ALANIS Report: EXAM: LDCT LUNG CANCER SCREENING COMPARISON: 05/20/2021, 01/12/2019 PROTOCOL: Screening protocol, low dose, non-contrast CT chest was performed in accordance with Lung-Rads 2022. Additional coronal and sagittal reconstructions. MIP reconstructions were reviewed. Secondary computer-aided detection post-processing used. DOSE PARAMETERS: DLP: 83, mGy.cm/CTDIvol Mean: 1.8, mGy INDEX NODULE: Location: Right Middle Lobe Series: 3 Image: 211 Density: Solid Solid diameter (average): 4 mm Other characteristics: Juxtapleural Change: No significant change from 01/12/2019 Comments: None OTHER NODULES: Previously reported index nodule in the right lower lobe has resolved. Small peripheral clustered nodules in the right lower lobe have decreased in number. Small peripheral clustered nodules in the left lower lobe have nearly resolved. Calcified granulomas. OTHER-INCIDENTAL FINDINGS: Bronchial wall thickening. Atherosclerotic calcification of the coronary arteries and thoracic aorta. Unchanged dilation of the main pulmonary artery to 3.5 cm suggestive of pulmonary arterial hypertension. Degenerative changes of the spine. Prior cholecystectomy. Unchanged thickening of the bilateral adrenal glands. Atherosclerosis in the upper abdomen. Impression: LUNG-RADS: 2: Benign RECOMMENDATION: One year follow-up low dose CT, if patient meets screening criteria. SIGNIFICANT INCIDENTAL FINDING (S CODE): N/A OTHER SIGNIFICANT FINDINGS AND RECOMMENDATIONS: None significant Report Sign Date/Time: 04/30/2024 2:00 PM Primary Interpreting Staff: RICHA ALANIS, RADIOLOGIST (Designer And Patternmaker) /CGB RICHA ALANIS [facility] Apr 30, 2024 12:38 PM AAA SCREENING STUD Y FOR ABDOMINAL AORTIC ANEURYSM: AXEL SAMANIEGO [id number] -1945 Ex Date: APR 30, 2024@12:38 Req Phys: MALLIKA WARD Pat Loc: [facility] PACT [facility]ERRELL 4E (Req'g Loc) Img Loc: Ultrasound Imaging Service: [place] [address] (Case [id number] COMPLETE) AAA SCREENING STUDY FOR ABDOMINAL(US Detailed) CPT:41402 Reason for Study: AAA screen Clinical History: IS NOT under investigation for COVID-19 or is COVID-19 negative screening AAA Responsible provider name and phone number to notify for critical findings if other than user placing the order and pager listed below: User placing orders pager: [phone] LAST CREATININE 1.2 (03/07/24) Report Status: Verified Date Reported: APR 30, 2024 Date Verified: APR 30, 2024 Designer And Patternmaker E-Sig:/NATY/RICHA ALANIS Report: Abdominal Aorta Ultrasound (screening) Comparison study: None. Clinical history: Risk factors for AAA. Findings: On the longitudinal view the AP diameters were as follows: Proximal (suprarenal): 3.4 cm Mid (infrarenal): 2.0 cm Distal: 2.1 cm Right MAXWELL: 1.4 cm Left MAXWELL: 1.5 cm Impression: 1. The infrarenal abdominal aorta is not aneurysmal. 2. The right common iliac artery is not aneurysmal. 3. The left common iliac artery is not aneurysmal. Recommendations from the [place] Vascular Surgery Department, updated 2023: Small infrarenal abdominal aortic aneurysms (AAA), less than 5.0 cm in diameter, should be followed by the primary provider until the aneurysm reaches 5.0 cm. AAA 3.0 cm - 3.9 cm Ultrasound every 3 years AAA 4.0 cm - 4.9 cm Ultrasound every 1 year AAA 5.0 cm or greater, CTA with contrast and vascular consult Iliac artery aneurysms: Iliac aneurysms should be followed by the primary provider until they reach 3.5 cm. Iliac aneurysm - < 3.0 cm ultrasound every 12 months Iliac aneurysm - 3.0 - 3.5 cm ultrasound every 6 months Iliac aneurysm - 3.5 cm or greater, CTA with contrast and refer to Vascular Surgery * Ascending thoracic aortic aneurysms are managed by cardiothoracic surgery * The presence of thrombus in the aneurysm is expected and does not change the recommendations Report Sign Date/Time: 04/30/2024 1:04 PM Primary Interpreting Staff: RICHA ALANIS, RADIOLOGIST (Janice) /RICHA NAVAS [facility] Encounter Notes: All associated encounter notes This section contains the clinical notes associated to the Encounter. Date/Time Encounter Note(s) Provider Source May 01, 2024 08:59 AM ADDENDUM: LOCAL TITLE: Addendum STANDARD TITLE: ADDENDUM DATE OF NOTE: MAY 01, 2024@08:59:41 ENTRY DATE: MAY 01, 2024@08:59:42 AUTHOR: YAZMIN INTERIANO COSIGNER: URGENCY: STATUS: COMPLETED Patient was seen, examined, and discussed with fellow/resident and the above note reflects our mutual assessment and plan. alvaro Banda. Can you please reach the patient to educate him how to use his new inhaler ciclesonide? We just prescribed it to him, so probably won't get it in a few days. Thank you! /es/ YAZMIN INTERIANO MD PULMONARY AND CRITICAL CARE STAFF PHYSICIAN Signed: 05/01/2024 09:00 Receipt Acknowledged By: 05/01/2024 11:04 /es/ TELLY BORDENN RN COPD [place] Department Manager/Pulmonary Nurse --- Original Document --- 04/30/24 PULMONARY CONSULT: History of Present Illness and Pulmonary Review of Systems: The patient is a(n) 78 year old MALE with PMHx significant for mild to moderate COPD and ischemic heart disease (STEMI 2007) who comes in for trasnfer of cares of his COPD. The patient was intially diagnosed with COPD 5-6 years ago. One month ago established with new PCP who started current treatment regimen of stiolto and albuterol rescue inhaler. Prior to this was using an albuterol nebulizer, which he continues to use 2-3 times per week. He has noted that he is less wheezy with the medication change. The patient reports experiencing 2-3 exacerbations requiring steroids per year. He has never been hospitalized for his COPD. He currently does farm chores in the morning and walks an estimated 0.5 miles with breaks. He is able to walk from the hospital entrance to lobby without breaks. He does report a remote history of [place], no reported history of CHF. Pulmonary ROS: Dyspnea: yes, with activity Walks: yes Chest pain: not assessed Cough: not assessed Sputum: not assessed Hemoptysis: not assessed Excessive sleepiness: not assessed Weight loss: not assessed Fever: not assessed Night sweats: not assessed Personal/Social/Occupational : Smoker: previous (quit 10-12 years ago) Pack years: 104 History of ETOH: not assessed TB exposure: not assessed (per chart review, negative quantiferon gold 02/2016) PPD: not assessed Asbestos: not assessed Silica: not assessed Other exposures: agent orange, methylene chloride Travel: not assessed Pets/birds: not assessed Past medical history: Computerized Problem List is the source for the followin. Chronic ischemic heart disease (SNOMED CT [id number] ACTIVE STEMI 2007 90% mLCx s[facility] 2. Obesity ACTIVE 3. Edema of lower leg ACTIVE 4. Co-mgd Mary [place] Dr.Richard Mullen ACTIVE 5. Hip pain ACTIVE 6. Chronic obstructive lung disease ACTIVE 06/2014 PFT: FEV1 62.9, FEV1/FVC 62 -> mod obstruction 7. Back pain ACTIVE 8. Shoulder pain ACTIVE 9. Hypertension ACTIVE 10. Hyperlipidemia ACTIVE 11. Hyperglycemia ACTIVE Family history: Medications: Active Outpatient Medications (including Supplies): Active Outpatient Medications Status 1) ALBUTEROL 90MCG (CFC-F) 200D ORAL INHL INHALE 2 PUFFS BY ACTIVE INHALATION FOUR TIMES A DAY NEEDED Indication: FOR SHORTNESS OF BREATH 2) ALBUTEROL SO4 0.083% INHL 3ML INHALE 3ML NEBS FOUR TIMES A ACTIVE DAY NEEDED Indication: FOR SHORTNESS OF BREATH 3) ATORVASTATIN CALCIUM 80MG TAB TAKE ONE-HALF TABLET BY MOUTH ACTIVE AT BEDTIME FOR CHOLESTEROL 4) METOPROLOL TARTRATE 50MG TAB TAKE ONE TABLET BY MOUTH TWICE ACTIVE A DAY 5) OLODATEROL/TIOTROP 2.5MCG/ACTUAT 60D INH INHALE 2 PUFFS BY ACTIVE (S) INHALATION EVERY DAY Indication: FOR COPD 6) OMEPRAZOLE 20MG EC CAP TAKE ONE CAPSULE BY MOUTH EVERY DAY ACTIVE Active Non-VA Medications Status 1) Non-VA ASPIRIN TAB 81MG MOUTH EVERY DAY ACTIVE 2) Non-VA IBUPROFEN 200MG TAB 200MG MOUTH THREE TIMES A DAY ACTIVE NEEDED 8 Total Medications Allergies: Patient has answered NKA IM - Immunizations ADMINISTERED Immunization Series Date Facility Reaction Info COVID-19 (MODERNA), MRNA, LNP-S,* 12/30/2023 [facility] [facility] COVID-19 ([facility]), MRNA, LNP-S, * 03/01/2022 [facility] [facility] COVID-19 ([facility]), MRNA, LNP-S, * 3 01/07/2021 [place] <C> COVID-19 ([employer]f24), MRNA, LNP-S, * 2 05/14/2020 [place] COVID-19 ([employer]24), MRNA, LNP-S, * 1 04/23/2020 [place] COVID-19 ([employer]24), MRNA, LNP-S, * 07/18/2021 [facility] [facility] COVID-19 ([employer]24), MRNA, LNP-S, * 1 03/04/2023 [place] INFLUENZA, ADJUVANTED, QUADRIVAL* 12/13/2022 [facility] [facility] INFLUENZA, ADJUVANTED, QUADRIVAL* 01/07/2022 [facility] [facility] INFLUENZA, ADJUVANTED, TRIVALENT* 12/30/2023 [facility] [facility] INFLU[place], ADJUVANTED, TRIVALENT* 12/26/2017 [facility] [facility] INFLUENZA, HIGH-DOSE, TRIVALENT,* 12/29/2016 [place] INFLUENZA, HIGH-DOSE, TRIVALENT,* 01/07/2016 No Site INFLUENZA, HIGH-DOSE, TRIVALENT,* 01/08/2015 [place] INFLUENZA, SPLIT VIRUS, QUADRIVA* 01/07/2021 [place] INFLUENZA, SPLIT VIRUS, QUADRIVA* 01/11/2020 [place] INFLUENZA, SPLIT VIRUS, TRIVALEN* 12/11/2018 [place] INFLUENZA, SPLIT VIRUS, TRIVALEN* 12/15/2017 [place] INFLUENZA, SPLIT VIRUS, TRIVALEN* 02/16/2011 [facility] [facility] INFLUENZA, SPLIT VIRUS, TRIVALEN* 02/25/2012 [facility] [facility] INFLUENZA, UNSPECIFIED FORMULATI* 01/02/2014 [place] INFLUENZA, UNSPECIFIED FORMULATI* 01/23/2013 [place] PNEUMOCOCCAL CONJUGATE PCV 13 02/19/2015 [place] <C> PNEUMOCOCCAL POLYSACCHARIDE PPV23 03/03/2016 [place] <C> PNEUMOCOCCAL POLYSACCHARIDE PPV23 02/16/2011 [place]* RSV, BIVALENT, PROTEIN SUBUNIT R* 03/07/2024 [place]* TDAP 03/04/2023 [place] TDAP 02/16/2011 [place]* ZOSTER LIVE 02/06/2014 [place]* <C> ZOSTER RECOMBINANT 2 07/06/2022 [place]* <C> ZOSTER RECOMBINANT 1 02/23/2022 [place]* CONTRAINDICATED No data available REFUSED ======= No data available <C> See the Detailed Immunizations Health Summary Component[DIM] for Comments * Value is truncated; see the Detailed Immunizations Health Summary Component[DIM] for complete text Family history: Physical exam: Vitals: Blood pressure: 152/80 (04/30/2024 11:35) Pulse: 56 (04/30/2024 11:35) Respiration: 19 (04/30/2024 11:35) Temperature: 99 F [37.2 C] (04/30/2024 11:35) Weight: 277.7 lb [125.96 kg] (04/30/2024 11:35) Pulse Oximetry: 95% (04/30/2024 11:35) FIO2: room air Respiratory effort: normal Normal breath sounds Cardiovascular: Normal S1S2. No murmur Extremities: Edema: mild bilateral pitting edema to mid golden Radiology reports: Last CXR: Impression for CHEST 2 VIEWS PA & LAT, 12/10/11, case [id number] Negative chest. Last chest CT: No Reports found CT Angiogram in last year: No data available Pet Scan: No data available HGB 13.5 (03/07/24) PLT 231 (03/07/24) WBC 8.7 (03/07/24) Differential: ABS EOS 0.3 10x3/uL (03/07/24) INR - NONE FOUND PFT Reports: Spirometry Ref LLN Pre ZScore% Ref Post ZScore% RefChng (L%Chg FVC L 3.79 2.81 3.19 -1.01 84.0 3.42 -0.63 90.1 0.23 6.1 FEV 1 L 2.85 1.99 1.66 -2.24 58.2 1.88 -1.85 65.9 0.22 7.7 FEV1/FVC% 76 63 52 -2.81 55 -2.50 3 3.8 PEF L/s 7.93 5.94 4.53 -2.81 57.1 5.47 -2.04 68.9 0.94 11.8 Z-Score Pre-Bronchodilator FVC L -1.01 FEV 1 L -2.24 FEV1/FVC % -3 Z-Score Post-Bronchodilator FVC L -0.63 FEV 1 L -1.85 FEV1/FVC % -3 Diffusing Capacity Ref LLN Pre %Ref Z-Score Z-Score DLCO_SBml/(min*m25.4518.49 20.55 80.7 -1.12 -1.12 DLCOcSBml/(min*m25.4518.49 21.59 84.8 -0.87 -0.87 Hb g(Hb)/dL 13.00 Parameter FVC FEV1 FEV1/FVC TLC RV DLCOcSB 07/11/2014 3.65 2.28 62 03/30/2024 3.19 1.66 52 21.59 Good effort, all tests meet ATS criteria for acceptability and reproducibility. Neb given with 2.5 mg/3ml Albuterol. *Hgb. of 13.0 (drawn 03/30/2024 via hemocue). Pg. 2 04/30/24 14:12 CP PFT (MPLS) AXEL SAMANIEGO [id number] : May ([birth year]) NOT INPATIENT Interpretation: Definite Obstruction: FEV1/FVC ratio < CI. Mild: FEV1 z-score -1.65 to -2.5. Negative Bronchodilator response: < 10% increase in FVC or FEV1: no bronchodilator response and should not be use to guide Rx. Diffusing Capacity is Normal. Compared to previous test on 07/11/2014, FEV-! is worse. Signed By: Billy Shirley MD Labs, tests and imaging results listed in pulmonary note were discussed with patient. Assessment and Plan #COPD Gold E History of mild-moderate COPD (FEV1 Z-score -2.24; GOLD Group E with 2-3 exacerbations per year, no prior hospitalizations). Here to establish COPD care. Started on regimen of stiolto and rescue albuterol one month ago per PCP. Prior to that was managed with albuterol nebulizer. Based on exacerbation history and absolute eosinophil count of 300, will add ICS to existing treatment regimen and continue rescue albuterol as needed. Also considered possible component of heart failure contributing to dyspnea given history of [place] and bilateral lower extremity edema. Would reccomend consideration of further workup per PCP or cardiology. 1. Add daily ICS to existing treatment regimen for triple therapy (Ciclesonide) 2. Continue stiolto daily and rescue albuterol prn 3. Follow up in pulm clinic 4 months - if no improvement with consider anti IL-5 therapy #Lung Cancer Screening Patient does qualify for low dose CT lung cancer screening based on smoking history (last completed in 2021). This has been scheduled per PCP. 1. Follow up per PCP I have discussed the patient with my supervising/collaborating practitioner, Dr Jose Benoit (Fellow) Dr. Interiano (Attending), and they agree with my assessment/plan. If you have questions or urgent need to contact the pulmonary service, please refer to the neuropsychology division chief-calendar. Note created in collaboration [employer]. Isha Collins, MS4 Medical Student - [facility] Huan Benoit MD, PhD Pulmonary and Critical Care Fellow MEDICATION RECONCILIATION Outpatient At this visit I have reviewed the medication list, and discussed relevant medications with the patient/surrogate. An updated patient medication list was given to the participant(s). No Change Education on NEW Medication: I have reviewed the medication list for possible drug:drug interactions or contraindications prior to ordering NEW medications during this visit. indicated readiness to learn and has been instructed on action, dose, frequency and side effects of the new medication and I noted new medication on participant's copy of the medication list. /es/ HUAN BENOIT FELLOW PHYSICIAN Signed: 04/30/2024 17:57 Receipt Acknowledged By: 05/01/2024 08:59 /es/ YAZMIN INTERIANO MD PULMONARY AND CRITICAL CARE STAFF PHYSICIAN 05/01/2024 ADDENDUM STATUS: COMPLETED REASON FOR PULM CONSULT: hx COPD, worsening sx over past year. transferring care to [place]. Request for Pulmonary evaluation. HISTORY OF PRESENT ILLNESS: Mr. Axel Samaniego is a 78-year old male with history of mild COPD (FEV1 58.2%), CAD with STEMI in 2007 s/p PCI, 100 pack years tobacco (quit 2014), co-managed PCP (Mary), who was referred for evaluation and management of COPD. He was just started on LAMA/LABA and albuterol 1 month ago. Previously was just on nebulized albuterol. Historically he has had 2-3 exacerbations per year, no hospitalizations. Last exacerbation was 1 month ago. He is feeling better with all of these changes in his inhaler. 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 Pertinent medications: Albuterol 2 puffs BID PRN Albuterol nebs PRN Stiolto Prednisone and Doxycycline home action plan Lab: Abs eos 300 PFT 03/30/24: Spirometry Ref LLN Pre ZScore% Ref Post ZScore% RefChng (L%Chg FVC L 3.79 2.81 3.19 -1.01 84.0 3.42 -0.63 90.1 0.23 6.1 FEV 1 L 2.85 1.99 1.66 -2.24 58.2 1.88 -1.85 65.9 0.22 7.7 FEV1/FVC% 76 63 52 -2.81 55 -2.50 3 3.8 PEF L/s 7.93 5.94 4.53 -2.81 57.1 5.47 -2.04 68.9 0.94 11.8 Z-Score Diffusing Capacity Ref LLN Pre %Ref Z-Score Z-Score DLCO_SBml/(min*m25.4518.49 20.55 80.7 -1.12 -1.12 DLCOcSBml/(min*m25.4518.49 21.59 84.8 -0.87 -0.87 Hb g(Hb)/dL 13.00 Parameter FVC FEV1 FEV1/FVC TLC RV DLCOcSB 07/11/2014 3.65 2.28 62 03/30/2024 3.19 1.66 52 Interpretation: Definite Obstruction: FEV1/FVC ratio < CI. Mild: FEV1 z-score -1.65 to -2.5. Negative Bronchodilator response: < 10% increase in FVC or FEV1: no bronchodilator response and should not be use to guide Rx. Diffusing Capacity is Normal. All studies (labs, imaging, PFT, etc) mentioned in this note have been personally interpreted and reviewed by me and discussed with the patient/family. ASSESSMENT: 1. COPD with frequent exacerbations. Just recently started LABA/LAMA, and improving. FEV1 58% predicted, mild airflow obstruction by z-core. 2. Frequent exacerbations of 2-3 times per year, no hospitalizations otherwise. Last exacerbation was 1 month ago. 3. Obesity BMI 37 PLAN: 1. Trial ICS (ciclesonide) given exacerbations and abs eos 300. We will ask our COPD case specialist to reach out for teaching (he was in a hurry today to go to another appointment). 2. Continue LABA/LAMA and albuterol 3. If he continues to have recurrent exacerbations, we can consider dupilumab. 4. We can discuss MOVE! clinic or FOCUS trial with him at next visit. RTC in 4-6 months, VVC okay. Time spent reviewing chart, counseling, discussing case, coordinating care, and documentation: 50 minutes /es/ YAZMIN INTERIANO MD PULMONARY AND CRITICAL CARE STAFF PHYSICIAN Signed: 05/01/2024 08:[address] [facility] Apr 30, 2024 11:57 AM PULMONARY CONSULT: LOCAL TITLE: PULMONARY CONSULT STANDARD TITLE: PULMONARY CONSULT DATE OF NOTE: APR 30, 2024@11:57 ENTRY DATE: APR 30, 2024@11:57:44 AUTHOR: HUAN WOOD EXP COSIGNER: URGENCY: STATUS: COMPLETED PULMONARY CONSULT Has ADDENDA History of Present Illness and Pulmonary Review of Systems: The patient is a(n) 78 year old MALE with PMHx significant for mild to moderate COPD and ischemic heart disease (STEMI 2007) who comes in for trasnfer of cares of his COPD. The patient was intially diagnosed with COPD 5-6 years ago. One month ago established with new PCP who started current treatment regimen of stiolto and albuterol rescue inhaler. Prior to this was using an albuterol nebulizer, which he continues to use 2-3 times per week. He has noted that he is less wheezy with the medication change. The patient reports experiencing 2-3 exacerbations requiring steroids per year. He has never been hospitalized for his COPD. He currently does farm chores in the morning and walks an estimated 0.5 miles with breaks. He is able to walk from the hospital entrance to lobby without breaks. He does report a remote history of [place], no reported history of CHF. Pulmonary ROS: Dyspnea: yes, with activity Walks: yes Chest pain: not assessed Cough: not assessed Sputum: not assessed Hemoptysis: not assessed Excessive sleepiness: not assessed Weight loss: not assessed Fever: not assessed Night sweats: not assessed Personal/Social/Occupational : Smoker: previous (quit 10-12 years ago) Pack years: 104 History of ETOH: not assessed TB exposure: not assessed (per chart review, negative quantiferon gold 02/2016) PPD: not assessed Asbestos: not assessed Silica: not assessed Other exposures: agent orange, methylene chloride Travel: not assessed Pets/birds: not assessed Past medical history: Computerized Problem List is the source for the followin. Chronic ischemic heart disease (SNOMED CT [id number] ACTIVE STEMI 2007 90% mLCx s/p BMS [place] 2. Obesity ACTIVE 3. Edema of lower leg ACTIVE 4. Co-mgd [place] Dr.Richard Mullen ACTIVE 5. Hip pain ACTIVE 6. Chronic obstructive lung disease ACTIVE 06/2014 PFT: FEV1 62.9, FEV1/FVC 62 -> mod obstruction 7. Back pain ACTIVE 8. Shoulder pain ACTIVE 9. Hypertension ACTIVE 10. Hyperlipidemia ACTIVE 11. Hyperglycemia ACTIVE Family history: Medications: Active Outpatient Medications (including Supplies): Active Outpatient Medications Status 1) ALBUTEROL 90MCG (CFC-F) 200D ORAL INHL INHALE 2 PUFFS BY ACTIVE INHALATION FOUR TIMES A DAY NEEDED Indication: FOR SHORTNESS OF BREATH 2) ALBUTEROL SO4 0.083% INHL 3ML INHALE 3ML NEBS FOUR TIMES A ACTIVE DAY NEEDED Indication: FOR SHORTNESS OF BREATH 3) ATORVASTATIN CALCIUM 80MG TAB TAKE ONE-HALF TABLET BY MOUTH ACTIVE AT BEDTIME FOR CHOLESTEROL 4) METOPROLOL TARTRATE 50MG TAB TAKE ONE TABLET BY MOUTH TWICE ACTIVE A DAY 5) OLODATEROL/TIOTROP 2.5MCG/ACTUAT 60D INH INHALE 2 PUFFS BY ACTIVE (S) INHALATION EVERY DAY Indication: FOR COPD 6) OMEPRAZOLE 20MG EC CAP TAKE ONE CAPSULE BY MOUTH EVERY DAY ACTIVE Active Non-VA Medications Status 1) Non-VA ASPIRIN TAB 81MG MOUTH EVERY DAY ACTIVE 2) Non-VA IBUPROFEN 200MG TAB 200MG MOUTH THREE TIMES A DAY ACTIVE NEEDED 8 Total Medications Allergies: Patient has answered NKA IM - Immunizations ADMINISTERED Immunization Series Date Facility Reaction Info COVID-19 (MODERNA), MRNA, LNP-S,* 12/30/2023 [facility] COVID-19 ([facility]), MRNA, LNP-S, * 03/01/2022 [facility] COVID-19 ([facility]), MRNA, LNP-S, * 3 01/07/2021 [place]> COVID-19 ([facility]), MRNA, LNP-S, * 2 05/14/2020 [place] COVID-19 ([facility]), MRNA, LNP-S, * 1 04/23/2020 [place] COVID-19 ([facility]), MRNA, LNP-S, * 07/18/2021 [facility] COVID-19 ([facility]), MRNA, LNP-S, * 1 03/04/2023 [place] INFLUENZA, ADJUVANTED, QUADRIVAL* 12/13/2022 [facility] INFLUENZA, ADJUVANTED, QUADRIVAL* 01/07/2022 [facility] INFLUENZA, ADJUVANTED, TRIVALENT* 12/30/2023 [facility] INFLUENZA, ADJUVANTED, TRIVALENT* 12/26/2017 [facility] INFLUENZA, HIGH-DOSE, TRIVALENT,* 12/29/2016 [place] INFLUENZA, HIGH-DOSE, TRIVALENT,* 01/07/2016 No Site INFLUENZA, HIGH-DOSE, TRIVALENT,* 01/08/2015 [place] INFLUENZA, SPLIT VIRUS, QUADRIVA* 01/07/2021 [place] INFLUENZA, SPLIT VIRUS, QUADRIVA* 01/11/2020 [place] INFLUENZA, SPLIT VIRUS, TRIVALEN* 12/11/2018 [place] INFLUENZA, SPLIT VIRUS, TRIVALEN* 12/15/2017 [place] INFLUENZA, SPLIT VIRUS, TRIVALEN* 02/16/2011 [facility] INFLU[facility]ZA, SPLIT VIRUS, TRIVALEN* 02/25/2012 [facility] INFLUENZA, UNSPECIFIED FORMULATI* 01/02/2014 [place] INFLUENZA, UNSPECIFIED FORMULATI* 01/23/2013 [place] PNEUMOCOCCAL CONJUGATE PCV 13 02/19/2015 [place] <C> PNEUMOCOCCAL POLYSACCHARIDE PPV23 03/03/2016 [place] <C> PNEUMOCOCCAL POLYSACCHARIDE PPV23 02/16/2011 [place]* RSV, BIVALENT, PROTEIN SUBUNIT R* 03/07/2024 [place] TDAP 03/04/2023 [place] TDAP 02/16/2011 [place]* ZOSTER LIVE 02/06/2014 [place] <C> ZOSTER RECOMBINANT 2 07/06/2022 [place] <C> ZOSTER RECOMBINANT 1 02/23/2022 [place] CONTRAINDICATED No data available REFUSED ======= No data available <C> See the Detailed Immunizations Health Summary Component[DIM] for Comments * Value is truncated; see the Detailed Immunizations Health Summary Component[DIM] for complete text Family history: Physical exam: Vitals: Blood pressure: 152/80 (04/30/2024 11:35) Pulse: 56 (04/30/2024 11:35) Respiration: 19 (04/30/2024 11:35) Temperature: 99 F [37.2 C] (04/30/2024 11:35) Weight: 277.7 lb [125.96 kg] (04/30/2024 11:35) Pulse Oximetry: 95% (04/30/2024 11:35) FIO2: room air Respiratory effort: normal Normal breath sounds Cardiovascular: Normal S1S2. No murmur Extremities: Edema: mild bilateral pitting edema to mid golden Radiology reports: Last CXR: Impression for CHEST 2 VIEWS PA & LAT, 12/10/11, case [id number] Negative chest. Last chest CT: No Reports found CT Angiogram in last year: No data available Pet Scan: No data available HGB 13.5 (03/07/24) PLT 231 (03/07/24) WBC 8.7 (03/07/24) Differential: ABS EOS 0.3 10x3/uL (03/07/24) INR - NONE FOUND PFT Reports: Spirometry Ref LLN Pre ZScore% Ref Post ZScore% RefChng (L%Chg FVC L 3.79 2.81 3.19 -1.01 84.0 3.42 -0.63 90.1 0.23 6.1 FEV 1 L 2.85 1.99 1.66 -2.24 58.2 1.88 -1.85 65.9 0.22 7.7 FEV1/FVC% 76 63 52 -2.81 55 -2.50 3 3.8 PEF L/s 7.93 5.94 4.53 -2.81 57.1 5.47 -2.04 68.9 0.94 11.8 Z-Score Pre-Bronchodilator FVC L -1.01 FEV 1 L -2.24 FEV1/FVC % -3 Z-Score Post-Bronchodilator FVC L -0.63 FEV 1 L -1.85 FEV1/FVC % -3 Diffusing Capacity Ref LLN Pre %Ref Z-Score Z-Score DLCO_SBml/(min*m25.4518.49 20.55 80.7 -1.12 -1.12 DLCOcSBml/(min*m25.4518.49 21.59 84.8 -0.87 -0.87 Hb g(Hb)/dL 13.00 Parameter FVC FEV1 FEV1/FVC TLC RV DLCOcSB 07/11/2014 3.65 2.28 62 03/30/2024 3.19 1.66 52 21.59 Good effort, all tests meet ATS criteria for acceptability and reproducibility. Neb given with 2.5 mg/3ml Albuterol. *Hgb. of 13.0 (drawn 03/30/2024 via hemocue). Pg. 2 04/30/24 14:12 CP PFT (MPLS) AXEL SAMANIEGO [id number] : [birth year] ([birth year]) NOT INPATIENT Interpretation: Definite Obstruction: FEV1/FVC ratio < CI. Mild: FEV1 z-score -1.65 to -2.5. Negative Bronchodilator response: < 10% increase in FVC or FEV1: no bronchodilator response and should not be use to guide Rx. Diffusing Capacity is Normal. Compared to previous test on 07/11/2014, FEV-! is worse. Signed By: Billy Shirley MD Labs, tests and imaging results listed in pulmonary note were discussed with patient. Assessment and Plan #COPD Gold E History of mild-moderate COPD (FEV1 Z-score -2.24; GOLD Group E with 2-3 exacerbations per year, no prior hospitalizations). Here to establish COPD care. Started on regimen of stiolto and rescue albuterol one month ago per PCP. Prior to that was managed with albuterol nebulizer. Based on exacerbation history and absolute eosinophil count of 300, will add ICS to existing treatment regimen and continue rescue albuterol as needed. Also considered possible component of heart failure contributing to dyspnea given history of [place] and bilateral lower extremity edema. Would reccomend consideration of further workup per PCP or cardiology. 1. Add daily ICS to existing treatment regimen for triple therapy (Ciclesonide) 2. Continue stiolto daily and rescue albuterol prn 3. Follow up in pulm clinic 4 months - if no improvement with consider anti IL-5 therapy #Lung Cancer Screening Patient does qualify for low dose CT lung cancer screening based on smoking history (last completed in 2021). This has been scheduled per PCP. 1. Follow up per PCP I have discussed the patient with my supervising/collaborating practitioner, Dr Jose Benoit (Fellow) Dr. Interiano (Attending), and they agree with my assessment/plan. If you have questions or urgent need to contact the pulmonary service, please refer to the neuropsychology division chief-calendar. Note created in collaboration [employer]. Isha Collins, MS4 Medical Student - [facility] Huan Benoit MD, PhD Pulmonary and Critical Care Fellow MEDICATION RECONCILIATION Outpatient At this visit I have reviewed the medication list, and discussed relevant medications with the patient/surrogate. An updated patient medication list was given to the participant(s). No Change Education on NEW Medication: I have reviewed the medication list for possible drug:drug interactions or contraindications prior to ordering NEW medications during this visit. indicated readiness to learn and has been instructed on action, dose, frequency and side effects of the new medication and I noted new medication on participant's copy of the medication list. /es/ HUAN BENOIT FELLOW PHYSICIAN Signed: 04/30/2024 17:57 Receipt Acknowledged By: 05/01/2024 08:59 /es/ YAZMIN INTERIANO MD PULMONARY AND CRITICAL CARE STAFF PHYSICIAN 05/01/2024 ADDENDUM STATUS: COMPLETED REASON FOR PULM CONSULT: hx COPD, worsening sx over past year. transferring care to [place]. Request for Pulmonary evaluation. HISTORY OF PRESENT ILLNESS: Mr. Axel Samaniego is a 78-year old male with history of mild COPD (FEV1 58.2%), CAD with STEMI in 2007 s/p PCI, 100 pack years tobacco (quit 2014), co-managed PCP (Mary), who was referred for evaluation and management of COPD. He was just started on LAMA/LABA and albuterol 1 month ago. Previously was just on nebulized albuterol. Historically he has had 2-3 exacerbations per year, no hospitalizations. Last exacerbation was 1 month ago. He is feeling better with all of these changes in his inhaler. 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 Pertinent medications: Albuterol 2 puffs BID PRN Albuterol nebs PRN Stiolto Prednisone and Doxycycline home action plan Lab: Abs eos 300 PFT 03/30/24: Spirometry Ref LLN Pre ZScore% Ref Post ZScore% RefChng (L%Chg FVC L 3.79 2.81 3.19 -1.01 84.0 3.42 -0.63 90.1 0.23 6.1 FEV 1 L 2.85 1.99 1.66 -2.24 58.2 1.88 -1.85 65.9 0.22 7.7 FEV1/FVC% 76 63 52 -2.81 55 -2.50 3 3.8 PEF L/s 7.93 5.94 4.53 -2.81 57.1 5.47 -2.04 68.9 0.94 11.8 Z-Score Diffusing Capacity Ref LLN Pre %Ref Z-Score Z-Score DLCO_SBml/(min*m25.4518.49 20.55 80.7 -1.12 -1.12 DLCOcSBml/(min*m25.4518.49 21.59 84.8 -0.87 -0.87 Hb g(Hb)/dL 13.00 Parameter FVC FEV1 FEV1/FVC TLC RV DLCOcSB 07/11/2014 3.65 2.28 62 03/30/2024 3.19 1.66 52 Interpretation: Definite Obstruction: FEV1/FVC ratio < CI. Mild: FEV1 z-score -1.65 to -2.5. Negative Bronchodilator response: < 10% increase in FVC or FEV1: no bronchodilator response and should not be use to guide Rx. Diffusing Capacity is Normal. All studies (labs, imaging, PFT, etc) mentioned in this note have been personally interpreted and reviewed by me and discussed with the patient/family. ASSESSMENT: 1. COPD with frequent exacerbations. Just recently started LABA/LAMA, and improving. FEV1 58% predicted, mild airflow obstruction by z-core. 2. Frequent exacerbations of 2-3 times per year, no hospitalizations otherwise. Last exacerbation was 1 month ago. 3. Obesity BMI 37 PLAN: 1. Trial ICS (ciclesonide) given exacerbations and abs eos 300. We will ask our COPD case specialist to reach out for teaching (he was in a hurry today to go to another appointment). 2. Continue LABA/LAMA and albuterol 3. If he continues to have recurrent exacerbations, we can consider dupilumab. 4. We can discuss MOVE! clinic or FOCUS trial with him at next visit. RTC in 4-6 months, VVC okay. Time spent reviewing chart, counseling, discussing case, coordinating care, and documentation: 50 minutes /naty/ YAZMIN INTERIANO MD PULMONARY AND CRITICAL CARE STAFF PHYSICIAN Signed: 05/01/2024 08:58 05/01/2024 ADDENDUM STATUS: COMPLETED Patient was seen, examined, and discussed with fellow/resident and the above note reflects our mutual assessment and plan. alvaro Banda. Can you please reach the patient to educate him how to use his new inhaler ciclesonide? We just prescribed it to him, so probably won't get it in a few days. Thank you! /ana lilia INTERIANO MD PULMONARY AND CRITICAL CARE STAFF PHYSICIAN Signed: 05/01/2024 09:00 Receipt Acknowledged By: * AWAITING SIGNATURE * [facility] Apr 30, 2024 11:39 AM INTERNAL MEDICINE OUTPATIENT NOTE: LOCAL TITLE: MEDICINE CLINIC NURSING NOTE STANDARD TITLE: INTERNAL MEDICINE OUTPATIENT NOTE DATE OF NOTE: APR 30, 2024@11:39 ENTRY DATE: APR 30, 2024@11:39:26 AUTHOR: DAMON UNDERWOOD EXP COSIGNER: URGENCY: STATUS: COMPLETED TYPE OF VISIT: Appointment Check In Type of appointment: In-person appointment REASON FOR VISIT: scheduled visit ALLERGIES: Patient has answered NKA VITAL SIGNS: Blood Pressure: 152/80 no symptoms(04/30/2024 11:35) 156/83 no symptoms. provider notified. Pulse: 56 (04/30/2024 11:35) Respiration: 19 (04/30/2024 11:35) Temperature: 99 F [37.2 C] (04/30/2024 11:35) Weight: 277.7 lb [125.96 kg] (04/30/2024 11:35) Height: 72 in [182.9 cm] (03/04/2023 09:05) BMI: 37.7 O2 Sat: 95% (04/30/2024 11:35) Pain: 5 (04/30/2024 11:35) Pulmonary Clinic General Appearance: No acute distress Respiratory Assessment Is this a change from your last visit to Pulmonary? Yes, specify: patient states breathing better /es/ DAMON UNDERWOOD LPN, LPN Signed: 04/30/2024 11:[address] [facility]
--- OUTSIDE RECORDS SUMMARY | 2024-05-01 04:38 | XMS_ITS | Encounter Summary ---
Author Name [facility] [place] Address [address] [place] [address] Care Team Providers Care Line Assembler Aircraft Name Role Phone MALLIKA WARD Primary Care [...] No's Name Patient's Relationship to Policy No [facility] (WNR) MEDICARE ADVANTAGE [facility] (WNR) Dec 26, 2022 [id number] KEM SAMANIEGO PATIENT [facility] (WNR) MEDICARE (M) MEDIC ARE REPLA PEGHILARY Mina Mar 28, 2019 REPLACE [facility] [id number] [phone] KEM SAMANIEGO PATIENT Selected Encounter This section includes the information on record at [place] for the Encounter. Date/Time Encounter Type Encounter Description Reason Provider Source May 01, 2024 09:38 AM Outpatient Encounter ADMIN PAT ACTIVTIES (MASNONCT) WYATT MORENO Encounter Template Text not used by [place] Plan of Treatment: Future Appointments (+ 6 months) and Future Tests (+/- 45 days) The Plan of Treatment section includes future care activities for the patient from all [place] treatmentfast. [facility]. This section includes future appointments and future orders which are active, pending or scheduled. Future Appointments This section includes appointments that were scheduled to occur 6 months from the date of the Encounter, up to a maximum of 20 appointments. The data comes from all [place] treatment facilities. Appointment Date/Time Appointment Type Appointme nt Facility Name August 03, 2024 01:30 PM AMBULATORY - MEDICINE [facility] Social History: Smoking Status (Most current) and Tobacco Use (All prior to encounter date) This section includes the most current, and the historical, smoking and tobacco- related health factors from the [place] facility where the Encounter took place. Current Smoking Status This section includes the most current smoking, or tobacco-related health factor, from the [place] facility where the Encounter took place. Date/Time Current Smoking Status Comment Facil ity Mar 07, 2024 02:00 PM VA-TOBACCO USE FORMER CIGARETTES [facility] Tobacco Use History This section includes a history of the smoking, or tobacco-related health factors, that were collected on or before the date of the Encounter. The data comes from the [place] facility where the Encounter took place. Date/Time Smoking Status/Tobacco Use Comment F acility Mar 07, 2024 02:00 PM VA-TOBACCO USE FORMER CIGARETTES [facility] Mar 04, 2023 09:30 AM VA-TOBACCO FORMER USER [facility] Mar 04, 2023 09:30 AM VA-TOBACCO QUIT 5 TO < 15 YRS [facility] Feb 16, 2021 03:15 PM VA-TOBACCO FORMER USER [facility] Feb 16, 2021 03:15 PM VA-TOBACCO QUIT 5 TO < 15 YRS [facility] Dec 11, 2018 10:30 AM VA-TOBACCO FORMER USER [facility] Dec 11, 2018 10:30 AM VA-TOBACCO QUIT 15 YRS OR MORE [facility] Nov 09, 2017 10:23 AM FORMER TOBACCO USER 7Y OR GREATE R [facility] Dec 29, 2016 09:20 AM FORMER TOBACCO USER 7Y OR GREATE R [facility] Mar 03, 2016 10:14 AM FORMER TOBACCO USER 7Y OR GREATE R [facility] Feb 19, 2015 10:23 AM FORMER TOBACCO USE >1Y <7Y [facility] Feb 06, 2014 08:50 AM FORMER TOBACCO USE >1Y <7Y [facility] Radiology Reports: +/- 30 days of the [...] the Encounter. The data comes from all [place] treatment facilities. Date/Time Radiology Report Provider Source Apr 30, 2024 01:35 PM SHOULDER RIGHT 2-3 VIEWS: KEM SAMANIEGO [id number] -1945 M Exm Date: APR 30, 2024@13:35 Req Phys: MALLIKA WARD Pat Loc: [facility] PACT DERRELL 4E (Req'g Loc) Img Loc: MAIN X-RAY Service: [place] [address] (Case [id number] COMPLETE) SHOULDER RIGHT 2-3 VIEWS (RAD Detailed) CPT:18474 Proc Modifiers : RIGHT Reason for Study: shoulder pain Clinical History: [place] IS NOT under investigation for COVID-19 or is COVID-19 negative shoulder pain Responsible provider name and phone number to notify for critical findings if other than user placing the order and pager listed below: User placing orders pager: [phone] LAST CREATININE 1.2 (03/07/24) Report Status: Verified Date Reported: APR 30, 2024 Date Verified: APR 30, 2024 Tieing Machine Operator E-Sig:/ES/LI VÁZQUEZ DO Report: EXAMINATION: SHOULDER RIGHT 2-3 VIEWS 04/30/2024 1:35 PM INDICATION: shoulder pain COMPARISON: None Impression: No acute fracture, dislocation or AC separation. The humeral head is not high riding. Moderate hypertrophic AC joint degenerative change. Moderate glenohumeral joint degenerative change with joint space narrowing and osteophyte formation. Report Sign Date/Time: 04/30/2024 2:29 PM Primary Interpreting Staff: LI VÁZQUEZ DO, RADIOLOGIST (Tieing Machine Operator) /DDS LI VÁZQUEZ [facility] Apr 30, 2024 01:35 PM HIP LEFT 2 VIEWS W /PELVIS: KEM SAMANIEGO [id number] -1945 M Exm Date: APR 30, 2024@13:35 Req Phys: MALLIKA WARD Loc: [facility] PACT DERRELL 4E (Req'g Loc) Img Loc: MAIN X-RAY Service: [place] [address] (Case [id number] COMPLETE) HIP LEFT 2 VIEWS W/PELVIS (RAD Detailed) CPT:49225 Proc Modifiers : LEFT Reason for Study: pain hx julieta Clinical History: [place] IS NOT under investigation for COVID-19 or is COVID-19 negative l hip pain Responsible provider name and phone number to notify for critical findings if other than user placing the order and pager listed below: User placing orders pager: [phone] LAST CREATININE 1.2 (03/07/24) Report Status: Verified Date Reported: APR 30, 2024 Date Verified: APR 30, 2024 Tieing Machine Operator E-Sig:/ES/LI VÁZQUEZ DO Report: EXAMINATION: HIP LEFT 2 VIEWS W/PELVIS 04/30/2024 1:35 PM INDICATION: pain hx julieat COMPARISON: 11/04/2017 Impression: There has been interval right total hip arthroplasty. Hardware appears grossly intact and in appropriate alignment. Left total hip arthroplasty appears stable and intact and in appropriate alignment. No acute fracture or dislocation. No diastases of the pubic symphysis or SI joints. There is vascular calcification. Report Sign Date/Time: 04/30/2024 2:37 PM Primary Interpreting Staff: LI VÁZQUEZ DO, RADIOLOGIST (Tieing Machine Operator) /DDS LI VÁZQUEZ [facility] Apr 30, 2024 01:02 PM LDCT LUNG CANCER SCREENING: URBANO SAMANIEGOFRANKIE [place] [id number] -1945 M Exm Date: APR 30, 2024@13:02 Req Phys: MALLIKA WARD Loc: [facility] PULM CHART CHECK LCS (Req' Img Loc: CT IMAGING Service: [place] [address] (Case [id number] COMPLETE) LDCT LUNG CANCER SCREENING (CT Detailed) CPT:66370 Reason for Study: LDCT for LUNG CANCER [...] PLASMA .CREAT EGFR(CKD-E 79 Ref: >=60 Allergies: ([place] only) Patient has answered NKA Defer to [...] 30, 2024 Date Verified: APR 30, 2024 Tieing Machine Operator E-Sig:/ES/RICHA ALANIS Report: EXAM: LDCT LUNG CANCER [...] PM Primary Interpreting Staff: RICHA ALANIS, RADIOLOGIST (Tieing Machine Operator) /CGRICHA FRASER [facility] Apr 30, 2024 12:38 PM AAA SCREENING STUD Y FOR ABDOMINAL AORTIC ANEURYSM: KEM SAMANIEGO [id number] -1945 M Exm Date: APR 30, 2024@12:38 Req Phys: MALLIKA WARD Pat Loc: [facility] PACT DERRELL 4E (Req'g Loc) Img Loc: Ultrasound Imaging Service: [place] [address] (Case [id number] COMPLETE) AAA SCREENING STUDY FOR ABDOMINAL(US Detailed) CPT:19019 Reason for Study: AAA screen Clinical History: [place] IS NOT under investigation for COVID-19 or is COVID-19 negative screening AAA Responsible provider name and phone number to notify for critical findings if other than user placing the order and pager listed below: User placing orders pager: [phone] LAST CREATININE 1.2 (03/07/24) Report Status: Verified Date Reported: APR 30, 2024 Date Verified: APR 30, 2024 Tieing Machine Operator E-Sig:/ES/RICHA ALANIS Report: Abdominal Aorta Ultrasound (screening) Comparison [...] artery is not aneurysmal. Recommendations from the [place] Vascular Surgery Department, updated 2023: Small infrarenal [...] PM Primary Interpreting Staff: RICHA ALANIS, RADIOLOGIST (Tieing Machine Operator) /RICHA NAVAS [facility] Encounter Notes: All associated encounter notes This section contains the clinical notes associated to the Encounter. Date/Time Encounter Note(s) Provider Source May 01, 2024 01:06 PM LETTERS: LOCAL TITLE: FOLLOW UP RESULTS LETTER STANDARD TITLE: LETTERS DATE OF NOTE: MAY 01, 2024@13:06 ENTRY DATE: MAY 01, 2024@13:06:54 AUTHOR: MALLIKA WARD EXP COSIGNER: URGENCY: STATUS: COMPLETED [facility] [address] [place] [address] Apr KEM SAMANIEGO [address] [place] [id number] Dear [place]: I am writing to inform you of the results of testing that you had done recently at the [facility]. You had several imaging studies today which I have reviewed and outlined below. Ultrasound of your abdomen- you do not have any aneurysms of the blood vessels (aorta) in your abdomen. We do not need to do any further testing. CT of lungs- your lung nodules are stable. We can repeat the CT scan in 1 year. Hip X ray- no findings to explain your pain. Your shoulder X ray does show some arthritis. I recommend working with physical therapy on a personalized home exercise plan. You can schedule an appointment with physical therapy by calling [phone]. If your pain does not improve with PT, we can consider trying a steroid injection for the shoulder. If you have any further questions or problems, please contact our nursing staff or provider at the following number: [phone]. Sincerely, MALLIKA WARD STAFF PHYSICIAN MALLIKA WARD [facility] May 01, 2024 09:39 AM LETTERS: LOCAL TITLE: FOLLOW UP RESULTS LETTER STANDARD TITLE: LETTERS DATE OF NOTE: MAY 01, 2024@09:39 ENTRY DATE: MAY 01, 2024@09:39:37 AUTHOR: WYATT MORENO EXP COSIGNER: URGENCY: STATUS: COMPLETED [facility] [address] [place] [address] Apr KEM SAMANIEGO [address] [place] [id number] Dear [place]: Your recent chest imaging on Apr showed: No lung nodules that require further follow up at this time. You may now return to the routine lung cancer screening program. If you still meet criteria for screening, your PCP will let you know when it is time to be screened again. This is usually about a year from your last screening chest CT. If you still smoke cigarettes, we can help you quit. We understand that quitting cigarette smoking is difficult, but it is the best way to improve your health and decrease your chances of lung cancer. Quitting smoking and participating in lung cancer screening can double the health benefits. When you want help, let your primary care provider know. You can also call 8-039-KHNY-VET ( ) or visit WhistleTalk.smokefree.gov. If you are scheduled for a scan in the future and you have symptoms of a chest cold at that time, please call number on appointment letter to reschedule for four weeks after symptoms improve. If you have any further questions or problems, please contact Lung Cancer Screening staff at [phone]. WYATT MORENO MA, RN LCS Animal Physiology Teacher WYATT MORENO [facility] May 01, 2024 09:38 AM PULMONARY NOTE: LOCAL TITLE: PULMONARY LUNG CANCER SCREENING STANDARD TITLE: PULMONARY NOTE DATE OF NOTE: MAY 01, 2024@09:38 ENTRY DATE: MAY 01, 2024@09:38:54 AUTHOR: WYATT MORENO EXP COSIGNER: URGENCY: STATUS: COMPLETED NO LUNG NODULES or TRACKING OF NODULE NOT INDICATED per guidelines (e.g., clearly benign/some small nodules). Date of image: Date: April 30, 2024 LDCT Scan Results: Most recent LDCT scan shows a nodule for which tracking is not indicated per guidelines or radiology report. Lung RADS Score: 2 Incidental Findings: No incidental findings were noted. Plan: Continue routine annual lung cancer screening. Patient Notification of results: Results letter sent to patient. /naty/ WYATT MORENO MA, RN LCS Animal Physiology Teacher Signed: 05/01/2024 09:39 WYATT MORENO [facility]
--- OUTSIDE RECORDS SUMMARY | 2024-08-03 08:30 | XMS_ITS | Encounter Summary ---
Author Name [facility] [place] Organization [place] Address [address] [place] [address] Care Team Providers Care Yeast Fermentation Attendant Name Role Phone MALLIKA WARD Primary Care [...] No's Name Patient's Relationship to Policy No [facility] (WNR) MEDICARE ADVANTAGE [facility] (WNR) Dec 26, 2022 [id number] KEM SAMANIEGO PATIENT [facility]-CARE OF [facility] (WNR) MEDICARE (M) MEDIC ARE REPLA PEGHILARY Mina Mar 28, 2019 REPLACE [facility] [id number] KEM SAMANIEGO PATIENT Selected Encounter This section includes the information on record at [place] for the Encounter. Date/Time Encounter Type Encounter Description Reason Provider Source August 03, 2024 01:30 PM OFFICE O/P EST LOW 20 MIN PRIMARY CARE/MEDICINE ICD-10-CM M25.511 Pain in right shoulder MALLIKA WARD E Encounter Template Text not used by [facility] Assessments - Encounter Diagnoses This section includes the primary and secondary diagnoses documented for the Encounter. Date/Time Primary/Secondary Diagnosis Diagnosis Name Provider Source August 03, 2024 05:12 PM PRIMARY Pain in right shoulder MALLIKA WARD [facility] August 03, 2024 05:12 PM SECONDARY Chronic obstructive pulmonary disease, unspecified MALLIKA WARD [facility] August 03, 2024 05:12 PM SECONDARY Encounter for immunization CRESENCIO VILLEGAS [facility] Vital Signs: All taken on the encounter date This section contains inpatient and outpatient Vital Signs collected on the date of the Encounter. Date/Time Temperature Pulse Blood Pressure Respiratory Rate SP02 Pain Height Weight Body Mass Index Source August 03, 2024 01:15 PM 98.1 57 143/78 16 91 0 279.8 38 [facility] Immunizations: All administered on the encounter date This section contains immunizations associated to the Encounter. Immunization Series Date Issued Administered By Site Reaction Lot Number CVX Code Drug Slot Technician Comment(s) Source COVID-19 (Taul[employer]), MRNA, LNP-S, PF, JAH-SUCROSE, 30 MCG/0.3 ML (AGES 12+ YEARS) August 03, 2024 CRESENCIO VILLEGAS LEFT DELTO ID [id number] [employer] ADMINISTERE D AT [place], [facility] Social History: Smoking Status (Most current) and Tobacco Use (All prior to encounter date) This section includes the most current, and the historical, smoking and tobacco- related health factors from the [place] facility where the Encounter took place. Current Smoking Status This section includes the most current smoking, or tobacco-related health factor, from the [place] facility where the Encounter took place. Date/Time Current Smoking Status Comment Lillian infante Mar 07, 2024 02:00 PM VA-TOBACCO USE FORMER CIGARETTES [facility] Tobacco Use History This section includes a history of the smoking, or tobacco-related health factors, that were collected on or before the date of the Encounter. The data comes from the [place] facility where the Encounter took place. Date/Time Smoking Status/Tobacco Use Comment Anshu mike Mar 07, 2024 02:00 PM VA-TOBACCO USE FORMER CIGARETTES [facility] Mar 04, 2023 09:30 AM VA-TOBACCO FORMER USER [facility] Mar 04, 2023 09:30 AM [place]-TOBACCO QUIT 5 TO < 15 YRS [facility] Feb 16, 2021 03:15 PM VA-TOBACCO FORMER USER [facility] Feb 16, 2021 03:15 PM VA-TOBACCO QUIT 5 TO < 15 YRS [facility] Dec 11, 2018 10:30 AM VA-TOBACCO FORMER USER [facility] Dec 11, 2018 10:30 AM VA-TOBACCO QUIT 15 YRS OR MORE [facility] Nov 09, 2017 10:23 AM FORMER TOBACCO USER 7Y OR GREATE R [facility] Dec 29, 2016 09:20 AM FORMER TOBACCO USER 7Y OR GREATE R [facility] Mar 03, 2016 10:14 AM FORMER TOBACCO USER 7Y OR GREATE R [facility] Feb 19, 2015 10:23 AM FORMER TOBACCO USE >1Y <7Y [facility] Feb 06, 2014 08:50 AM FORMER TOBACCO USE >1Y <7Y [facility] Encounter Notes: All associated encounter notes This section contains the clinical notes associated to the Encounter. Date/Time Encounter Note(s) Provider Source August 03, 2024 01:58 PM INTERNAL MEDICINE NOTE: LOCAL TITLE: MEDICINE CLINIC NOTE STANDARD TITLE: INTERNAL MEDICINE NOTE DATE OF NOTE: AUGUST 03, 2024@13:58 ENTRY DATE: AUGUST 03, 2024@13:58:55 AUTHOR: MALLIKA WARD EXP COSIGNER: URGENCY: STATUS: COMPLETED SUBJECT: COPD, shoulder pain HPI/ROS: KEM SAMANIEGO is a 79 year old MALE w/ hx CAD s/p ABDUKLADIR 2007, COPD, shoulder pain, HTN, HLD here for f/u. STill co mgd except for shoulder and COPD Gets R hand numbness while driving, no pain or radiation from neck. Drives one handed. Drives from [place]. Physical therapy - has not tried yet. Shoulder still bothersome. COPD - started ICS, thinks his breathing is better - allergies this week, otherwise breathing is good - wonders about using prednisone all the time, felt great w/ lots of energy PMH: Active problems - Computerized Problem List is the source for the followin. Chronic ischemic heart disease (SNOMED CT [id number]) - STEMI 2007 90% mLCx s/p [facility] 2. Obesity 3. Edema of lower leg [facility]. [facility] [place] [facility]Richard Mullen 5. Hip pain 6. Chronic obstructive lung disease - 06/2014 PFT: FEV1 62.9, FEV1/FVC 62 -> mod obstruction 7. Back pain 8. Shoulder pain 9. Hypertension 10. Hyperlipidemia 11. Hyperglycemia Allergies: Patient has answered NKA Meds: Reviewed & updated in CPRS. See EMR for details. EXAM: VS: Temp: 98.1 F [36.7 C] (08/03/2024 13:15) Pulse:57 (08/03/2024 13:15) BP: 143/78 (08/03/2024 13:15) Resp: 16 (08/03/2024 13:15) O2 sat: 91% (08/03/2024 13:15) Weight: Measurement DT WEIGHT LB(KG)[BMI] 08/03/2024 13:15 279.8(126.92)[38*] 04/30/2024 11:35 277.7(125.96)[38*] 03/07/2024 13:14 277.4(125.83)[38*] General: NAD HEENT: NCAT Lungs: CTAB, speaking in complete sentences, normal work of breathing CV: RRR, no m/r/g, no peripheral edema Abdomen: s/nt/nd Extremities: painful arc R shoulder w/ extension Neuro: Ambulates w/o assitance, alert & oriented Data/Labs: Reviewed in EMR. Labs completed prior to today's appointment were reviewed with patient during appointment. Assessment and Plan: #COPD established w/ pulm here, now on triple therpay and doing well. Discussed chronic prednisone use not appropriate. - continue triple inhaler therapy - f/u pulm #R shoulder pain Has mild arthritis on XR, has not done PT. Encouraged him to do 4-8 weeks of PT before we consider injections - PT referral # - RTC annual Feb 2024 When available, please see After Visit Summary [...] reason for use, and potential side effects). No new medications or medication changes during this encounter. TERATOGENIC MED & CONTRACEPTION REVIEW (Optional)... ======= MEDICATION RECONCILIATION ======= List Given: An updated medication list was provided to the patient/caregiver. Review Done: The medication list shown below was verified for accuracy and reviewed with the patient/caregiver. It includes all pending medications/active medications/all medications or [...] Allergy/ADR Data available for this patient [facility] No Known Allergies Active and Recently Outpatient Medications (including Supplies): Issue Date Status Last Fill Active Outpatient Medications Refills Expiration 1) ALBUTEROL 90MCG (CFC-F) 200D ORAL INHL ACTIVE Issu:03-07-24 Qty: 2 for 50 days Sig: INHALE 2 Refills: 6 Last:03-07-24 PUFFS BY INHALATION FOUR TIMES A DAY Expr:03-08-25 NEEDED FOR SHORTNESS OF BREATH 2) ALBUTEROL SO4 0.083% INHL 3ML Qty: 90 ACTIVE Issu:03-07-24 for 30 days Sig: INHALE 3ML NEBS FOUR Refills: 3 Last:03-07-24 TIMES A DAY NEEDED FOR SHORTNESS OF Expr:03-08-25 BREATH 3) ATORVASTATIN CALCIUM 40MG TAB Qty: 90 ACTIVE (S) Issu:11-25-23 for 90 days Sig: TAKE ONE TABLET BY Refills: 3 Last:10-09-24 MOUTH AT BEDTIME FOR CHOLESTEROL Expr:11-25-24 4) CICLESONIDE 160MCG 60D ORAL INHL Qty: 3 ACTIVE Issu:04-30-24 for 90 days Sig: INHALE 1 PUFF BY Refills: 2 Last:08-02-24 MOUTH TWICE A DAY COPD WITH FREQUENT Expr:05-01-25 EXACERBATIONS 5) METOPROLOL TARTRATE 50MG TAB Qty: 180 ACTIVE Issu:03-07-24 for 90 days Sig: TAKE ONE TABLET BY Refills: 3 Last:05-04-24 MOUTH TWICE A DAY Expr:03-08-25 6) OLODATEROL/TIOTROP 2.5MCG/ACTUAT 60D INH ACTIVE Issu:03-07-24 Qty: 3 for 90 days Sig: INHALE 2 Refills: 2 Last:05-26-24 PUFFS BY INHALATION EVERY DAY FOR COPD Expr:03-08-25 7) OMEPRAZOLE 20MG EC CAP Qty: 90 for 90 ACTIVE Issu:04-24-24 days Sig: TAKE ONE CAPSULE BY MOUTH Refills: 0 Last:07-23-24 EVERY DAY Expr:04-25-25 Issue Date Status Last Fill Inactive Outpatient Medications Refills Expiration 1) ALBUTEROL 3/IPRATROP 0.5MG/3ML INHL 3ML DISCONTINUED Issu:07-18-23 Qty: 360 for 90 days Sig: INHALE 3ML Refills: 2 Last:03-06-24 IN NEBULIZER BY INHALATION FOUR TIMES Expr:07-18-24 A DAY FOR COPD 2) ATORVASTATIN CALCIUM 80MG TAB Qty: 45 DISCONTINUED Issu:11-25-23 for 90 days Sig: TAKE ONE-HALF TABLET Refills: 1 Last:07-16-24 BY MOUTH AT BEDTIME FOR CHOLESTEROL Expr:11-25-24 3) DOXYCYCLINE HYCLATE 100MG TAB Qty: 10 Issu:03-07-24 for 5 days Sig: TAKE ONE TABLET BY Refills: 0 Last:03-07-24 MOUTH TWICE A DAY FOR BRONCHITIS Expr:04-06-24 4) PREDNISONE 20MG TAB Qty: 10 for 5 days Issu:03-07-24 Sig: TAKE TWO TABLETS BY MOUTH EVERY Refills: 0 Last:03-07-24 MORNING FOR COPD EXACERBATION. Expr:04-06-24 Start Date Active Non-VA Medications Refills Expiration 1) Non-VA ASPIRIN TAB SiMG MOUTH ACTIVE EVERY DAY 2) Non-VA IBUPROFEN 200MG TAB SiMG ACTIVE MOUTH THREE TIMES A DAY NEEDED 13 Total Medications /es/ MALLIKA WARD STAFF PHYSICIAN Signed: 08/03/2024 17:12 MALLIKA WARD [facility] August 03, 2024 01:22 PM INTERNAL MEDICINE OUTPATIENT NOTE: LOCAL TITLE: MEDICINE CLINIC NURSING NOTE STANDARD TITLE: INTERNAL MEDICINE OUTPATIENT NOTE DATE OF NOTE: AUGUST 03, 2024@13:22 ENTRY DATE: AUGUST 03, 2024@13:22:57 AUTHOR: JAJA VILLEGAS EXP COSIGNER: URGENCY: STATUS: COMPLETED TYPE OF VISIT: Appointment Check In Type of appointment: In-person appointment REASON FOR VISIT: unsure of purpose, shortness of breath is getting worse ALLERGIES: Patient has answered NKA VITAL SIGNS: Blood Pressure: 143/78 (08/03/2024 13:15) Pulse: 57 (08/03/2024 13:15) Respiration: 16 (08/03/2024 13:15) Temperature: 98.1 F [36.7 C] (08/03/2024 13:15) Weight: 279.8 lb [126.92 kg] (08/03/2024 13:15) Height: 72 in [182.9 cm] (03/04/2023 09:05) BMI: 38.0 O2 Sat: 91% (08/03/2024 13:15) Pain: 0 (08/03/2024 13:15) MEDICATION Over the Counter/Herbal Medications: The patient denies taking any outside medications or herbals. COVID-19 Immunization: Pfizer Monovalent (Comirnaty) Administered: COVID-19 (PFIZER), MRNA, LNP-S, PF, JAH-SUCROSE, 30 MCG/0.3 ML (AGES 12+ YEARS) Date Administered: August 03, 2024 13:25 Slot Technician: [employer] Lot: [id number] Exp Date: Jan 05, 2025 ND: [id number] Admin Route/Site: INTRAMUSCULAR/LEFT DELTOID Dosage: 0.3mL Vaccine Information Statement(s): COVID-19 MRNA VACCINE (12+ YRS) VIS Apr 27, 2024 ([place]) Order By: Policy Administered By: Jaja Villegas The COVID-19 Vaccine Information Statement (VIS) was reviewed with the patient/surrogate decision maker which lists the benefits and risks of not receiving the COVID-19 vaccine. The patient/surrogate decision maker denied any prior severe reaction to this vaccine or its components or a severe allergic reaction such as anaphylaxis to any vaccine or any injectable therapy. The patient/surrogate decision maker gave verbal consent to receive the vaccine. /naty/ JAJA VILLEGAS LPN Signed: 08/03/2024 13:26 JAJA VILLEGAS [facility]
--- OUTSIDE RECORDS SUMMARY | 2024-10-03 09:54 | XMS_ITS | Encounter Summary ---
Author Name [facility] [facility] Address [address] [place] [id number] Care Team Providers Care Professional Housing Consultant Name Role Phone ED MALLIKA Primary Care Provider Unavailabl e Insurance Providers: [...] No's Name Patient's Relationship to Policy No [facility] (WNR) MEDICARE ADVANTAGE [facility] (WNR) Dec 26, 2022 [id number] KEM SAMANIEGO PATIENT [facility] (WNR) MEDICARE (M) MEDIC ARE REPLA SÁNCHEZ Mina Mar 28, 2019 REPLACE MENT [id number] KEM SAMANIEGO PATIENT Selected Encounter This section includes the information on record at [place] for the Encounter. Date/Time Encounter Type Encounter Description Reason Pro vider Source Oct 03, 2024 02:54 PM Outpatient Encounter PULMONARY/CHEST IHE Encounter Template Text not used by [facility] Social History: Smoking Status (Most current) and Tobacco Use (All prior to encounter date) This section includes the most current, and the historical, smoking and tobacco- related health factors from the [facility] where the Encounter took place. Current Smoking Status This section includes the most current smoking, or tobacco-related health factor, from the [place] facility where the Encounter took place. Date/Time Current Smoking Status Comment Facil ity Mar 07, 2024 02:00 PM VA-TOBACCO USE FORMER CIGARETTES [facility] Tobacco Use History This section includes a history of the smoking, or tobacco-related health factors, that were collected on or before the date of the Encounter. The data comes from the [facility] where the Encounter took place. Date/Time Smoking Status/Tobacco Use Comment F acility Mar 07, 2024 02:00 PM VA-TOBACCO USE FORMER CIGARETTES [facility] Mar 04, 2023 09:30 AM VA-TOBACCO FORMER USER [facility] Mar 04, 2023 09:30 AM VA-TOBACCO QUIT 5 TO < 15 YRS [facility] Feb 16, 2021 03:15 PM VA-TOBACCO FORMER USER [facility] Feb 16, 2021 03:15 PM VA-TOBACCO QUIT 5 TO < 15 YRS [facility] Dec 11, 2018 10:30 AM VA-TOBACCO FORMER USER [facility] Dec 11, 2018 10:30 AM VA-TOBACCO QUIT 15 YRS OR MORE [facility] Nov 09, 2017 10:23 AM FORMER TOBACCO USER 7Y OR GREATE R [facility] Dec 29, 2016 09:20 AM FORMER TOBACCO USER 7Y OR GREATE R [facility] Mar 03, 2016 10:14 AM FORMER TOBACCO USER 7Y OR GREATE R [facility] Feb 19, 2015 10:23 AM FORMER TOBACCO USE >1Y <7Y [facility] Feb 06, 2014 08:50 AM FORMER TOBACCO USE >1Y <7Y [facility] Encounter Notes: All associated encounter notes This section contains the clinical notes associated to the Encounter. Date/Time Encounter Note(s) Provider Source Oct 03, 2024 02:54 PM REPORT OF CONTACT: LOCAL TITLE: APPOINTMENT SCHEDULING NOTE STANDARD TITLE: REPORT OF CONTACT DATE OF NOTE: OCT 03, 2024@14:54 ENTRY DATE: OCT 03, 2024@14:54:12 AUTHOR: NINA MARTÍNEZ COSIGNER: URGENCY: STATUS: COMPLETED Attempted to schedule Return to clinic (RTC) Contact attempt made to [place] 1st attempt Telephone 2nd attempt Letter - Sent letter by regular [place] mail to address on file: KEM SAMANIEGO [address] [place] [id number] Disposition order request after Sep Left message on voice mail to call back to this number [phone] If calls back, schedule appt for: Activity: 04/30/2024 12:23 New Order entered by HUAN WOOD (PULM CRIT CARE ) Order Text: Return to [facility] on or around ( Aug 28, 2024 ) for a total of 1 appointment(s) Prerequisites: [place] prefers recall reminder, will not schedule RTC today COPD f/up /naty/ NINA KOENIG Signed: 10/03/2024 14:54 NINA MARTÍNEZ [facility]
--- OUTSIDE RECORDS SUMMARY | 2024-10-12 14:22 | XMS_ITS | Continuity of Care Document ---
Author Name [facility] Organization [facility] Care Team Providers Care Gis Software Developer Name Role Phone [facility] Unavailable Unavailable Problems Combined list of problems from [facility] and [facility] facilities. It does not include entries that were removed or entered in error. 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 Condition Mar 07, 2024 Entered By: MALLIKA WARD Comment: STEMI 2007 90% mLCx s/p [facility] Chronic obstructive lung disease Active Condition Jul 15, 2014 Entered By: MOISES DE LA PAZ Comment: 06/2014 PFT: FEV1 62.9, FEV1/FVC 62 -> mod obstruction [facility] Co-mgd Mary [place] Dr.Richard Mullen Active Condition [facility] Edema of lower leg Active Condition [facility] Hip pain Active Condition [facility] Hyperglycemia Active Condition [facility] Hyperlipidemia Active Condition [facility] Hypertension Active Condition [facility] Obesity Active Condition [facility] Shoulder pain Active Condition [facility] Diagnosis: ICD-10-CM M25.511 Pain in right shoulder Active Diagnosis [facility] Diagnosis: ICD-10-CM J44.9 Chronic obstructive pulmonary disease, unspecified Active Diagnosis [facility] Medications Combined list of outpatient medications from [facility] and [facility] facilities.Medications provided include 1) outpatient medications from the last 15 months, and 2) patient-reported medications. Medication Details Route Status Patient Instructions Prescription Expires Prescription Number Last Dispense Date Ordering Provider Order Date Order Qty Source ALBUTEROL 90MCG/ACTUA T (CFC-F) INHL,ORAL,8 .5GM DOSE COUNTER INHALE 2 PUFFS BY INHALATI ON FOUR TIMES A DAY NEEDED FOR SHORTNES S OF BREATH RESPIR ATORY (INHAL ATION) ACTIVE 03/08/2025 [id number] Lee WARD 2023 2 [facility] ALBUTEROL SO4 0.083% INHL,3ML INHALE 3ML NEBS FOUR TIMES A DAY NEEDED FOR SHORTNES S OF BREATH NEBULI ZATION ACTIVE 03/08/2025 [id number] Lee WARD [address] [place] [facility] [address] [facility] ALBUTEROL SO4 3MG/IPRATRO PIUM BR 0.5MG/3ML INHL,3ML INHALE 3ML IN NEBULIZE R BY INHALATI ON FOUR TIMES A DAY FOR COPD RESPIR ATORY (INHAL ATION) DISCONT INUED BY PROVIDE R 07/18/2024 [id number] LETI TAYLOR 2023 360 [facility] ASPIRIN TAB TAKE 81MG BY MOUTH EVERY DAY ORAL ACTIVE APRIL DE LA PAZ 2019 [facility] [place]STAT[place] N [place] 40MG TAB TAKE ONE TABLET BY MOUTH AT BEDTIME FOR CHOLESTE ROL ORAL ACTIVE 11/25/2024 [id number] LYDIA LEMOS 2024 90 [facility] [place] 80MG TAB TAKE ONE-HALF TABLET BY MOUTH AT BEDTIME FOR CHOLESTE ROL ORAL DISCONT INUED 11/25/2024 [id number] 5 LYDIA LEMOS 2023 45 [facility] [place] 80MG TAB TAKE ONE-HALF TABLET BY MOUTH AT BEDTIME FOR CHOLESTE ROL ORAL DISCONT INUED 02/06/2024 [id number] APRIL DE LA PAZ 2022 45 [facility] CICLESONIDE 160MCG/SPRA Y INHL,ORAL,6 .1GM INHALE 1 PUFF BY MOUTH TWICE A DAY COPD WITH FREQUENT EXACERBA TIONS RESPIR ATORY (INHAL ATION) ACTIVE 05/01/2025 [id number] YAZMIN INTERIANO 2024 3 [facility] DOXYCYCLINE HYCLATE 100MG TAB TAKE ONE TABLET BY MOUTH TWICE A DAY FOR BRONCHIT IS ORAL 04/06/2024 [id number] Lee WARD 2023 10 [facility] IBUPROFEN 200MG TAB TAKE ONE TABLET BY MOUTH THREE TIMES A DAY NEEDED ORAL ACTIVE ADALI DOMINGO PH S 2014 [facility] METOPROLOL TARTRATE 50MG TAB TAKE ONE TABLET BY MOUTH TWICE A DAY ORAL ACTIVE 03/08/2025 [id number] 5 Lee WARD 2024 180 [facility] METOPROLOL TARTRATE 50MG TAB TAKE ONE TABLET BY MOUTH TWICE A DAY ORAL DISCONT INUED 03/04/2024 [id number] APRIL DE LA PAZ 2023 180 [facility] OLODATEROL 2.5MCG/TIOT ROPIUM 2.5MCG/ACTU AT INHL,ORAL,6 0D,4GM INHALE 2 PUFFS BY INHALATI ON EVERY DAY FOR COPD RESPIR ATORY (INHAL ATION) ACTIVE 03/08/2025 [id number] Lee WARD 2023 3 [facility] OMEPRAZOLE 20MG CAP,EC TAKE ONE CAPSULE BY MOUTH EVERY DAY ORAL ACTIVE 04/25/2025 [id number] 5 Lee WARD 2024 90 [facility] OMEPRAZOLE 20MG CAP,EC TAKE ONE CAPSULE BY MOUTH EVERY DAY ORAL DISCONT INUED 03/04/2024 [id number] 4 JANIE DORADO 2023 90 [facility] PREDNISONE 20MG TAB TAKE TWO TABLETS BY MOUTH EVERY MORNING FOR COPD EXACERBA TION. ORAL 04/06/2024 [id number] Lee WARD 2023 10 [facility] Immunizations Combined list of available immunizations from the Department of Defense and Veterans Affairs facilities. Immunization Series Date Given Administered By Site Reaction Lot Number CVX Code Drug Leak Detection Engineer Status Comments Source COVID-19 (PFIZER), MRNA, LNP-S, PF, JAH-SUCROSE, 30 MCG/0.3 ML (AGES 12+ YEARS) 2024 CRESENCIO VILLEGAS LEFT DELTO ID [id number] 309 complet ed [facility], [facility] RSV, BIVALENT, PROTEIN SUBUNIT RSVPREF, DILUENT RECONSTITUTED , 0.5 ML, PF 2023 CRESENCIO VILLEGAS MIGUELINA LEFT DELTO ID [id number] 305 complet ed [facility], [facility] COVID-19 (MODERNA), MRNA, LNP-S, PF, 50 MCG/0.5 ML (AGES 12+ YEARS) 2023 312 complet ed HISTORICA L INFORMATI ON - FROM OTHER REGISTRY, [facility] INFLUENZA, ADJUVANTED, TRIVALENT, PF 2023 168 complet ed HISTORICA L INFORMATI ON - FROM OTHER REGISTRY, [facility] TDAP 2022 JERRI SANTILLAN LEFT DELTO ID [id number] 115 complet ed [facility]MIN[facility], [facility] COVID-19 (PFIZER), MRNA, LNP-S, PF, JAH-SUCROSE, 30 MCG/0.3 ML (AGES 12+ YEARS) 1 2022 JERRI SANTILLAN LEFT DELTO ID [id number] 309 complet ed [facility], [facility] INFLUENZA VACCINE, QUADRIVALENT, ADJUVANTED 2022 205 complet ed HISTORICA L INFORMATI ON - FROM OTHER REGISTRY, [facility] ZOSTER RECOMBINANT 2 2022 HELENA MYERS LEFT DELTO ID [id number] 187 complet ed [facility], [id number] [facility] COVID-19 (PFIZER), MRNA, LNP-S, BIVALENT, PF, 30 MCG/0.3 ML DOSE 2021 300 complet ed HISTORICA L INFORMATI ON - FROM OTHER REGISTRY, [facility] ZOSTER RECOMBINANT 1 2021 187 complet ed [facility] INFLUENZA VACCINE, QUADRIVALENT, ADJUVANTED 2021 205 complet ed HISTORICA L INFORMATI ON - FROM OTHER REGISTRY, [facility] COVID-19 (PFIZER), MRNA, LNP-S, PF, 30 MCG/0.3 ML DOSE, JAH-SUCROSE (AGES 12+ YEARS) 2021 217 complet ed HISTORICA L INFORMATI ON - FROM OTHER REGISTRY, [facility] COVID-19 (PFIZER), MRNA, LNP-S, PF, 30 MCG/0.3 ML DOSE 3 2020 208 complet ed PFR; [id number]; 1 [facility] INFLUENZA, INJECTABLE, QUADRIVALENT, PRESERVATIVE FREE 2020 150 complet ed [facility] COVID-19 (PFIZER), MRNA, LNP-S, PF, 30 MCG/0.3 ML DOSE 2 2020 208 complet ed [facility] COVID-19 (PFIZER), MRNA, LNP-S, PF, 30 MCG/0.3 ML DOSE 1 2020 208 complet ed [facility] INFLUENZA, INJECTABLE, QUADRIVALENT, PRESERVATIVE FREE 2019 150 complet ed [facility] INFLUENZA, SEASONAL, INJECTABLE, PRESERVATIVE FREE 2018 140 complet ed [facility] INFLUENZA, TRIVALENT, ADJUVANTED 2017 168 complet ed HISTORICA L INFORMATI ON - FROM OTHER REGISTRY, [facility] INFLUENZA, SEASONAL, INJECTABLE, PRESERVATIVE FREE 2017 140 complet ed [facility] INFLUENZA, HIGH DOSE SEASONAL 2016 135 complet ed [facility] PNEUMOCOCCAL POLYSACCHARID E [id number] 2015 33 complet ed [employer]; [id number]; 8 [facility] INFLUENZA, HIGH DOSE SEASONAL 2015 135 complet ed [facility] PNEUMOCOCCAL CONJUGATE PCV 13 2014 133 complet ed [employer], [facility] INFLUENZA, HIGH DOSE SEASONAL 2014 135 complet ed [facility] ZOSTER LIVE 2013 121 complet ed [employer] [id number] [facility] INFLUENZA, UNSPECIFIED FORMULATION 2013 88 complet ed [facility] INFLUENZA, UNSPECIFIED FORMULATION 2012 88 complet ed [facility] INFLUENZA, SEASONAL, INJECTABLE 2011 141 complet ed HISTORICA L INFORMATI ON - FROM OTHER REGISTRY, [facility] INFLUENZA, SEASONAL, INJECTABLE, PRESERVATIVE FREE 2010 140 complet ed HISTORICA L INFORMATI ON - FROM OTHER REGISTRY, [facility] PNEUMOCOCCAL POLYSACCHARID E PPV23 2010 33 complet ed [facility] TDAP 2010 115 complet ed [facility] Results Combined list of recent chemistry, hematology and other laboratory results from Department of Defense and Veterans Affairs, ranging from 15 months to all on record, depending upon the facility. Order Name Results Value Reference Range Date Interpretation Specimen Comments Source HEMOGLOBI N A1C HEMOGLOBIN A1C/HEMOGLO BIN.TOTAL IN BLOOD 5.6 4.0 - 6.0 03/07 Specimen Type: BLOOD Comment: Values obtained from A1C measurement s can vary. For typical A1C assays, a reported value of 7.0 could actually be between 6.7 and 7.3 if measured by a reference method. A reported value of 9.0 could actually be between 8.7 and 9.3. Ref: http://www. ngsp.org/[place] Pdata.asp Ordering Provider: HAKEEM DORADO Report Released Date/Time: Mar 04, 2023 07:12 PM Reporting Lab: [facility] [address] Performing Lab: [facility] [address] [facility] AST/SGOT ASPARTATE AMINOTRANSF ERASE [ENZYMATIC ACTIVITY/VO LUME] IN SERUM OR PLASMA 27 U/L - 34 03/07 Specimen Type: PLASMA No comment entered. Ordering Provider: HAKEEM DORADO Report Released Date/Time: Mar 04, 2023 07:12 PM Reporting Lab: [facility] [address] Performing Lab: [facility] [address] [place] [facility] BASIC METABOLIC PANEL+MG CREATININE [MASS/VOLUM E] IN SERUM OR PLASMA 1.2 mg/dL 0.7 - 1.2 03/07 Specimen Type: PLASMA No comment entered. Ordering Provider: HAKEEM DORADO Report Released Date/Time: Mar 04, 2023 07:12 PM Reporting Lab: [facility] [address] Performing Lab: [facility] [address] [place] [facility] BASIC METABOLIC PANEL+MG UREA NITROGEN [MASS/VOLUM E] IN SERUM OR PLASMA 17 mg/dL 8 - 26 03/07 Specimen Type: PLASMA No comment entered. Ordering Provider: HAKEEM DORADO Report Released Date/Time: Mar 04, 2023 07:12 PM Reporting Lab: [facility] [address] Performing Lab: [facility] [address] [place] [facility] BASIC METABOLIC PANEL+MG GLUCOSE [MASS/VOLUM E] IN SERUM OR PLASMA 91 mg/dL 70 - 100 03/07 Specimen Type: PLASMA No comment entered. Ordering Provider: HAKEEM DORADO Report Released Date/Time: Mar 04, 2023 07:12 PM Reporting Lab: [facility] [address] Performing Lab: [facility] [address] [place] [facility] BASIC METABOLIC PANEL+MG SODIUM [MOLES/VOLU ME] IN SERUM OR PLASMA 138 mmol/L 136 - 145 03/07 Specimen Type: PLASMA No comment entered. Ordering Provider: HAKEEM DORADO Report Released Date/Time: Mar 04, 2023 07:12 PM Reporting Lab: [facility] [address] Performing Lab: [facility] [address] [place] [facility] BASIC METABOLIC PANEL+MG POTASSIUM [MOLES/VOLU ME] IN SERUM OR PLASMA 4.9 mmol/L 3.5 - 5.1 03/07 Specimen Type: PLASMA No comment entered. Ordering Provider: HAKEEM DORADO Report Released Date/Time: Mar 04, 2023 07:12 PM Reporting Lab: [facility] [address] Performing Lab: [facility] [address] [place] [facility] BASIC METABOLIC PANEL+MG CHLORIDE [MOLES/VOLU ME] IN SERUM OR PLASMA 104 mmol/L 98 - 107 03/07 Specimen Type: PLASMA No comment entered. Ordering Provider: HAKEEM DORADO Report Released Date/Time: Mar 04, 2023 07:12 PM Reporting Lab: [facility] [address] Performing Lab: [facility] [address] [place] [facility] BASIC METABOLIC PANEL+MG CARBON DIOXIDE, TOTAL [MOLES/VOLU ME] IN SERUM OR PLASMA 30 mmol/L 22 - 29 03/07 H Specimen Type: PLASMA No comment entered. Ordering Provider: HAKEEM DORADO Report Released Date/Time: Mar 04, 2023 07:12 PM Reporting Lab: [facility] [address] Performing Lab: [facility] [address] [place] [facility] BASIC METABOLIC PANEL+MG CALCIUM [MASS/VOLUM E] IN SERUM OR PLASMA 9.1 mg/dL 8.4 - 10.2 03/07 Specimen Type: PLASMA No comment entered. Ordering Provider: HAEKEM DORADO Report Released Date/Time: Mar 04, 2023 07:12 PM Reporting Lab: [facility] [address] Performing Lab: [facility] [address] [place] [facility] BASIC METABOLIC PANEL+MG MAGNESIUM [MASS/VOLUM E] IN SERUM OR PLASMA 2.1 mg/dL 1.6 - 2.6 03/07 Specimen Type: PLASMA No comment entered. Ordering Provider: HAKEEM DORADO Report Released Date/Time: Mar 04, 2023 07:12 PM Reporting Lab: [facility] [address] Performing Lab: [facility] [address] [place] [facility] BASIC METABOLIC PANEL+MG ANION GAP IN SERUM OR PLASMA 4 mmol/L 5 - 15 03/07 L Specimen Type: PLASMA No comment entered. Ordering Provider: HAKEEM DORADO Report Released Date/Time: Mar 04, 2023 07:12 PM Reporting Lab: [facility] [address] Performing Lab: [facility] [address] [place] [facility] BASIC METABOLIC PANEL+MG GLOMERULAR FILTRATION RATE/1.73 SQ M.PREDICTED [VOLUME RATE/AREA] IN SERUM, PLASMA OR BLOOD BY CREATININE- BASED FORMULA (CKD-EPI 2020) 63 60 03/07 Specimen Type: PLASMA No comment entered. Ordering Provider: HAKEEM DORADO Report Released Date/Time: Mar 04, 2023 07:12 PM Reporting Lab: [facility] [address] Performing Lab: [facility] [address] [place] [facility] ALT/SGPT ALANINE AMINOTRANSF ERASE [ENZYMATIC ACTIVITY/VO LUME] IN SERUM OR PLASMA 23 U/L <44 - 44 03/07 Specimen Type: PLASMA No comment entered. Ordering Provider: HAKEEM DORADO Report Released Date/Time: Mar 04, 2023 07:12 PM Reporting Lab: [facility] [address] Performing Lab: [facility] [address] [place] [facility] CBC & DIFF LEUKOCYTES [#/VOLUME] IN BLOOD BY AUTOMATED COUNT 8.7 4.0 - 11.0 03/07 Specimen Type: BLOOD Comment: Automated Differentia l Performed Ordering Provider: HAKEEM DORADO Report Released Date/Time: Mar 04, 2023 07:12 PM Reporting Lab: [facility] [address] Performing Lab: [facility] [address] [place] [facility] CBC & DIFF ERYTHROCYTE S [#/VOLUME] IN BLOOD BY AUTOMATED COUNT 4.39 4.60 - 6.20 03/07 L Specimen Type: BLOOD Comment: Automated Differentia l Performed Ordering Provider: HAKEEM DORADO Report Released Date/Time: Mar 04, 2023 07:12 PM Reporting Lab: [facility] [address] Performing Lab: [facility] [address] [place] [facility] CBC & DIFF HEMOGLOBIN [MASS/VOLUM E] IN BLOOD 13.5 g/dL 13.5 - 17.9 03/07 Specimen Type: BLOOD Comment: Automated Differentia l Performed Ordering Provider: HAKEEM ODRADO Report Released Date/Time: Mar 04, 2023 07:12 PM Reporting Lab: [facility] [address] Performing Lab: [facility] [address] [place] [facility] CBC & DIFF HEMATOCRIT [VOLUME FRACTION] OF BLOOD BY AUTOMATED COUNT 42.5 41.0 - 54.0 03/07 Specimen Type: BLOOD Comment: Automated Differentia l Performed Ordering Provider: HAKEEM DORADO Report Released Date/Time: Mar 04, 2023 07:12 PM Reporting Lab: [facility] [address] Performing Lab: [facility] [address] [place] [facility] CBC & DIFF MCV [ENTITIC VOLUME] BY AUTOMATED COUNT 96.8 fL 80.0 - 100.0 03/07 Specimen Type: BLOOD Comment: Automated Differentia l Performed Ordering Provider: HAKEEM DORADO Report Released Date/Time: Mar 04, 2023 07:12 PM Reporting Lab: [facility] [address] Performing Lab: [facility] [address] [place] [facility] CBC & DIFF MCH [ENTITIC MASS] BY AUTOMATED COUNT 30.8 pg 27.0 - 33.0 03/07 Specimen Type: BLOOD Comment: Automated Differentia l Performed Ordering Provider: HAKEEM DORADO Report Released Date/Time: Mar 04, 2023 07:12 PM Reporting Lab: [facility] [address] Performing Lab: [facility] [address] [place] [facility] CBC & DIFF MCHC [MASS/VOLUM E] BY AUTOMATED COUNT 31.8 g/dL 32.0 - 37.5 03/07 L Specimen Type: BLOOD Comment: Automated Differentia l Performed Ordering Provider: HAKEEM DORADO Report Released Date/Time: Mar 04, 2023 07:12 PM Reporting Lab: [facility] [address] Performing Lab: [facility] [address] [place] [facility] CBC & DIFF PLATELETS [#/VOLUME] IN BLOOD BY AUTOMATED COUNT 231 150 - 400 03/07 Specimen Type: BLOOD Comment: Automated Differentia l Performed Ordering Provider: HAKEEM DORADO Report Released Date/Time: Mar 04, 2023 07:12 PM Reporting Lab: [facility] [address] Performing Lab: [facility] [address] [place] [facility] CBC & DIFF PLATELET MEAN VOLUME [ENTITIC VOLUME] IN BLOOD BY AUTOMATED COUNT 9.6 fL 9.1 - 13.0 03/07 Specimen Type: BLOOD Comment: Automated Differentia l Performed Ordering Provider: HAKEEM DORADO Report Released Date/Time: Mar 04, 2023 07:12 PM Reporting Lab: [facility] [address] Performing Lab: [facility] [address] [place] [facility] CBC & DIFF NEUTROPHILS /100 LEUKOCYTES IN BLOOD BY MANUAL COUNT 60.6 40.0 - 80.0 03/07 Specimen Type: BLOOD Comment: Automated Differentia l Performed Ordering Provider: HAKEEM DORADO Report Released Date/Time: Mar 04, 2023 07:12 PM Reporting Lab: [facility] [address] Performing Lab: [facility] [address] [place] [facility] CBC & DIFF LYMPHOCYTES /100 LEUKOCYTES IN BLOOD BY MANUAL COUNT 25.5 15.0 - 45.0 03/07 Specimen Type: BLOOD Comment: Automated Differentia l Performed Ordering Provider: HAKEEM DORADO Report Released Date/Time: Mar 04, 2023 07:12 PM Reporting Lab: [facility] [address] Performing Lab: [facility] [address] [place] [facility] CBC & DIFF MONOCYTES/1 00 LEUKOCYTES IN BLOOD BY AUTOMATED COUNT 9.8 2.0 - 12.0 03/07 Specimen Type: BLOOD Comment: Automated Differentia l Performed Ordering Provider: HAKEEM DORADO Report Released Date/Time: Mar 04, 2023 07:12 PM Reporting Lab: [facility] [address] Performing Lab: [facility] [address] [place] [facility] CBC & DIFF EOSINOPHILS /100 LEUKOCYTES IN BLOOD BY AUTOMATED COUNT 3.3 0.0 - 6.0 03/07 Specimen Type: BLOOD Comment: Automated Differentia l Performed Ordering Provider: HAKEEM DORADO Report Released Date/Time: Mar 04, 2023 07:12 PM Reporting Lab: [facility] [address] Performing Lab: [facility] [address] [place] [facility] CBC & DIFF BASOPHILS/1 00 LEUKOCYTES IN BLOOD BY MANUAL COUNT 0.7 0.0 - 2.0 03/07 Specimen Type: BLOOD Comment: Automated Differentia l Performed Ordering Provider: HAKEEM DORADO Report Released Date/Time: Mar 04, 2023 07:12 PM Reporting Lab: [facility] [address] Performing Lab: [facility] [address] [place] [facility] CBC & DIFF ERYTHROCYTE DISTRIBUTIO N WIDTH [RATIO] BY AUTOMATED COUNT 13.8 11.5 - 14.5 03/07 Specimen Type: BLOOD Comment: Automated Differentia l Performed Ordering Provider: HAKEEM DORADO Report Released Date/Time: Mar 04, 2023 07:12 PM Reporting Lab: [facility] [address] Performing Lab: [facility] [address] [place] [facility] CBC & DIFF LYMPHOCYTES [#/VOLUME] IN BLOOD BY AUTOMATED COUNT 2.2 1.0 - 4.0 03/07 Specimen Type: BLOOD Comment: Automated Differentia l Performed Ordering Provider: HAKEEM DORADO Report Released Date/Time: Mar 04, 2023 07:12 PM Reporting Lab: [facility] [address] Performing Lab: [facility] [address] [place] [facility] CBC & DIFF MONOCYTES [#/VOLUME] IN BLOOD BY AUTOMATED COUNT 0.9 0.1 - 1.0 03/07 Specimen Type: BLOOD Comment: Automated Differentia l Performed Ordering Provider: HAKEEM DORADO Report Released Date/Time: Mar 04, 2023 07:12 PM Reporting Lab: [facility] [address] Performing Lab: [facility] [address] [place] [facility] CBC & DIFF NEUTROPHILS [#/VOLUME] IN BLOOD BY AUTOMATED COUNT 5.3 2.0 - 7.7 03/07 Specimen Type: BLOOD Comment: Automated Differentia l Performed Ordering Provider: HAKEEM DORADO Report Released Date/Time: Mar 04, 2023 07:12 PM Reporting Lab: [facility] [address] Performing Lab: [facility] [address] [place] [facility] CBC & DIFF EOSINOPHILS [#/VOLUME] IN BLOOD BY AUTOMATED COUNT 0.3 0.0 - 0.5 03/07 Specimen Type: BLOOD Comment: Automated Differentia l Performed Ordering Provider: HAKEEM DORADO Report Released Date/Time: Mar 04, 2023 07:12 PM Reporting Lab: [facility] [address] Performing Lab: [facility] [address] [place] [facility] CBC & DIFF BASOPHILS [#/VOLUME] IN BLOOD BY AUTOMATED COUNT 0.1 0.0 - 0.2 03/07 Specimen Type: BLOOD Comment: Automated Differentia l Performed Ordering Provider: HAKEEM DORADO Report Released Date/Time: Mar 04, 2023 07:12 PM Reporting Lab: [facility] [address] Performing Lab: [facility] [address] [place] [facility] CBC & DIFF IG(META,MYE LO,PRO) 0.1 03/07 Specimen Type: BLOOD Comment: Automated Differentia l Performed Ordering Provider: HAKEEM DORADO Report Released Date/Time: Mar 04, 2023 07:12 PM Reporting Lab: [facility] [address] Performing Lab: [facility] [address] [place] [facility] CBC & DIFF IMMATURE GRANULOCYTE S [PRESENCE] IN BLOOD BY AUTOMATED COUNT 0.0 0.0 - 0.1 03/07 Specimen Type: BLOOD Comment: Automated Differentia l Performed Ordering Provider: HAKEEM DORADO Report Released Date/Time: Mar 04, 2023 07:12 PM Reporting Lab: [facility] [address] Performing Lab: [facility] [address] [place] [facility] LIPID PANEL,NON -FASTING CHOLESTEROL [MASS/VOLUM E] IN SERUM OR PLASMA 137 mg/dL <199 - 199 03/07 Specimen Type: PLASMA No comment entered. Ordering Provider: NOAH WARD Report Released Date/Time: Mar 07, 2024 02:24 PM Reporting Lab: [facility] [address] Performing Lab: [facility] [address] [place] [facility] LIPID PANEL,NON -FASTING CHOLESTEROL IN HDL [MASS/VOLUM E] IN SERUM OR PLASMA 51 mg/dL 40 03/07 Specimen Type: PLASMA No comment entered. Ordering Provider: NOAH WARD Report Released Date/Time: Mar 07, 2024 02:24 PM Reporting Lab: [facility] [address] Performing Lab: [facility] [address] [place] [facility] LIPID PANEL,NON -FASTING CHOLESTEROL IN LDL [MASS/VOLUM E] IN SERUM OR PLASMA BY CALCULATION 68 mg/dL <99 - 99 03/07 Specimen Type: PLASMA No comment entered. Ordering Provider: NOAH WARD Report Released Date/Time: Mar 07, 2024 02:24 PM Reporting Lab: [facility] [address] Performing Lab: [facility] [address] [place] [facility] LIPID PANEL,NON -FASTING CHOLESTEROL IN VLDL [MASS/VOLUM E] IN SERUM OR PLASMA BY CALCULATION 18 mg/dL <29 - 29 03/07 Specimen Type: PLASMA No comment entered. Ordering Provider: NOAH WARD Report Released Date/Time: Mar 07, 2024 02:24 PM Reporting Lab: [facility] [address] Performing Lab: [facility] [address] [place] [facility] LIPID PANEL,NON -FASTING CHOLESTEROL NON HDL [MASS/VOLUM E] IN SERUM OR PLASMA 86 mg/dL <129 - 129 03/07 Specimen Type: PLASMA No comment entered. Ordering Provider: NOAH WARD Report Released Date/Time: Mar 07, 2024 02:24 PM Reporting Lab: [facility] [id number] Performing Lab: [facility] [id number] [place] [facility] LIPID PANEL,NON -FASTING TRIGLYCERID E [MASS/VOLUM E] IN SERUM OR PLASMA 88 mg/dL <149 - 149 03/07 Specimen Type: PLASMA No comment entered. Ordering Provider: NOAH WARD Report Released Date/Time: Mar 07, 2024 02:24 PM Reporting Lab: [facility] [id number] Performing Lab: [facility] [id number] [facility] HEMOGLOBI N A1C HEMOGLOBIN A1C/HEMOGLO BIN.TOTAL IN BLOOD 5.6 4.0 - 6.0 03/04 Specimen Type: BLOOD Comment: Values obtained from A1C measurement s can vary. For typical A1C assays, a reported value of 7.0 could actually be between 6.7 and 7.3 if measured by a reference method. A reported value of 9.0 could actually be between 8.7 and 9.3. Ref: http://www. ngsp.org/[place] Pdata.asp Ordering Provider: HAKEEM DORADO Report Released Date/Time: Mar 04, 2023 09:37 AM Reporting Lab: [facility] [address] Performing Lab: [facility] [address] [facility] AST/SGOT ASPARTATE AMINOTRANSF ERASE [ENZYMATIC ACTIVITY/VO LUME] IN SERUM OR PLASMA 19 U/L <34 - 34 03/04 Specimen Type: PLASMA No comment entered. Ordering Provider: HAKEEM DORADO Report Released Date/Time: Mar 04, 2023 09:37 AM Reporting Lab: [facility] [address] Performing Lab: [facility] [address] [facility] ALT/SGPT ALANINE AMINOTRANSF ERASE [ENZYMATIC ACTIVITY/VO LUME] IN SERUM OR PLASMA 12 U/L <55 - 55 03/04 Specimen Type: PLASMA No comment entered. Ordering Provider: HAKEEM DORADO Report Released Date/Time: Mar 04, 2023 09:37 AM Reporting Lab: [facility] [address] Performing Lab: [facility] [address] [facility] BASIC METABOLIC PANEL+MG CREATININE [MASS/VOLUM E] IN SERUM OR PLASMA 1.1 mg/dL 0.7 - 1.2 03/04 Specimen Type: PLASMA No comment entered. Ordering Provider: HAKEEM DORADO Report Released Date/Time: Mar 04, 2023 09:37 AM Reporting Lab: [facility] [address] Performing Lab: [facility] [address] [place] [facility] BASIC METABOLIC PANEL+MG UREA NITROGEN [MASS/VOLUM E] IN SERUM OR PLASMA 17 mg/dL 8 - 26 03/04 Specimen Type: PLASMA No comment entered. Ordering Provider: HAKEEM DORADO Report Released Date/Time: Mar 04, 2023 09:37 AM Reporting Lab: [facility] [address] Performing Lab: [facility] [address] [place] [facility] BASIC METABOLIC PANEL+MG GLUCOSE [MASS/VOLUM E] IN SERUM OR PLASMA 87 mg/dL 70 - 100 03/04 Specimen Type: PLASMA No comment entered. Ordering Provider: HAKEEM DORADO Report Released Date/Time: Mar 04, 2023 09:37 AM Reporting Lab: [facility] [address] Performing Lab: [facility] [address] [place] [facility] BASIC METABOLIC PANEL+MG SODIUM [MOLES/VOLU ME] IN SERUM OR PLASMA 140 mmol/L 136 - 145 03/04 Specimen Type: PLASMA No comment entered. Ordering Provider: HAKEEM DORADO Report Released Date/Time: Mar 04, 2023 09:37 AM Reporting Lab: [facility] [address] Performing Lab: [facility] [address] [place] [facility] BASIC METABOLIC PANEL+MG POTASSIUM [MOLES/VOLU ME] IN SERUM OR PLASMA 4.4 mmol/L 3.5 - 5.1 03/04 Specimen Type: PLASMA No comment entered. Ordering Provider: HAKEEM DORADO Report Released Date/Time: Mar 04, 2023 09:37 AM Reporting Lab: [facility] [address] Performing Lab: [facility] [address] [place] [facility] BASIC METABOLIC PANEL+MG CHLORIDE [MOLES/VOLU ME] IN SERUM OR PLASMA 102 mmol/L 98 - 107 03/04 Specimen Type: PLASMA No comment entered. Ordering Provider: HAKEEM DORADO Report Released Date/Time: Mar 04, 2023 09:37 AM Reporting Lab: [facility] [address] Performing Lab: [facility] [address] [place] [facility] BASIC METABOLIC PANEL+MG CARBON DIOXIDE, TOTAL [MOLES/VOLU ME] IN SERUM OR PLASMA 30 mmol/L 22 - 29 03/04 H Specimen Type: PLASMA No comment entered. Ordering Provider: HAKEEM DORADO Report Released Date/Time: Mar 04, 2023 09:37 AM Reporting Lab: [facility] [address] Performing Lab: [facility] [address] [place] [facility] BASIC METABOLIC PANEL+MG CALCIUM [MASS/VOLUM E] IN SERUM OR PLASMA 9.0 mg/dL 8.4 - 10.2 03/04 Specimen Type: PLASMA No comment entered. Ordering Provider: HAKEEM DORADO Report Released Date/Time: Mar 04, 2023 09:37 AM Reporting Lab: [facility] [address] Performing Lab: [facility] [address] [place] [facility] BASIC METABOLIC PANEL+MG MAGNESIUM [MASS/VOLUM E] IN SERUM OR PLASMA 2.1 mg/dL 1.6 - 2.6 03/04 Specimen Type: PLASMA No comment entered. Ordering Provider: HAKEEM DORADO Report Released Date/Time: Mar 04, 2023 09:37 AM Reporting Lab: [facility] [address] Performing Lab: [facility] [address] [place] [facility] BASIC METABOLIC PANEL+MG ANION GAP IN SERUM OR PLASMA 8 mmol/L 5 - 15 03/04 Specimen Type: PLASMA No comment entered. Ordering Provider: HAKEEM DORADO Report Released Date/Time: Mar 04, 2023 09:37 AM Reporting Lab: [facility] [address] Performing Lab: [facility] [address] [place] [facility] BASIC METABOLIC PANEL+MG GLOMERULAR FILTRATION RATE/1.73 SQ M.PREDICTED [VOLUME RATE/AREA] IN SERUM, PLASMA OR BLOOD BY CREATININE- BASED FORMULA (CKD-EPI 2020) 70 60 03/04 Specimen Type: PLASMA No comment entered. Ordering Provider: HAKEEM DORADO Report Released Date/Time: Mar 04, 2023 09:37 AM Reporting Lab: [facility] [address] [facility] [address] Performing Lab: [facility] [address] [facility] [address] [facility] Vital Signs Combined list of inpatient and outpatient Vital Signs from Department of Defense and Veterans Affairs, ranging from 12 months to all on record, depending upon the facility. Vital Sign Value Date Comments Source SYSTOLIC BLOOD PRESSURE 143 08/03/2024 13:15:25 [facility] DIASTOLIC BLOOD PRESSURE 78 08/03/2024 13:15:25 [facility] PULSE OXIMETRY 91 08/03/2024 13:15:[address] [place] [facility] WEIGHT 279.8 08/03/2024 13:15:25 [facility] BMI 38 kg/m2 08/03/2024 13:15:25 [facility] PAIN 0 08/03/2024 13:15:25 [facility] TEMPERATURE 98.1 08/03/2024 13:15:25 [facility] PULSE 57 08/03/2024 13:15:25 [facility] RESPIRATION 16 08/03/2024 13:15:25 [facility] SYSTOLIC BLOOD PRESSURE 152 04/30/2024 11:35:21 [facility] DIASTOLIC BLOOD PRESSURE 80 04/30/2024 11:35:21 [facility] PULSE OXIMETRY 95 04/30/2024 11:35:21 [facility] WEIGHT 277.7 04/30/2024 11:35:21 [facility] BMI 38 kg/m2 04/30/2024 11:35:21 [facility] PAIN 5 04/30/2024 11:35:21 [facility] TEMPERATURE 99 04/30/2024 11:35:21 [facility] PULSE 56 04/30/2024 11:35:21 [facility] RESPIRATION 19 04/30/2024 11:35:21 [facility] SYSTOLIC BLOOD PRESSURE 145 03/07/2024 13:14:29 [facility] DIASTOLIC BLOOD PRESSURE 72 03/07/2024 13:14:29 [facility] PULSE OXIMETRY 96 03/07/2024 13:14:29 [place] [facility] WEIGHT 277.4 03/07/2024 13:14:29 ERIC RENTERIA [facility] BMI 38 kg/m2 03/07/2024 13:14:29 ERIC NIELSONSenait [facility] PAIN 0 03/07/2024 13:14:29 ERIC NIELSONSneait [facility] TEMPERATURE 98.1 03/07/2024 13:14:29 [facility] P[facility] 58 03/07/2024 13:14:29 ERIC NIELSONSenait [facility] RESPIRATION 14 03/07/2024 13:14:29 [facility] Encounters Combined list of: 1) Encounters from Department of Veterans Affairs facilities going backup to the last 18 months, not all CT inpatient encounters are included; 2) Encounters from the Department of [facility] facilities going backup to 280 months. Location Location Details Encounter Type Encounter Number Reason For Visit Attending Provider ADM Date DC Date Status Disposition Source [place] [facility] Outpatient Encounter [id number] 07/10 [facility] [place] [facility] Outpatient Encounter [id number] 07/28 [facility] [place] [facility] Outpatient Encounter [id number] 12/29 [facility] [place] [facility] Outpatient Encounter [id number] 01/25 [facility] [place] [facility] Outpatient Encounter [id number] 01/26 [facility] [place] [facility] Outpatient Encounter [id number] 03/07 [facility] [place] [facility] Outpatient Encounter [id number] 03/07 [facility] [place] [facility] OFFICE O/P EST MOD 30 MIN [id number] Diagnos is: ICD-10- CM J44.9 Chronic obstruc tive pulmona ry disease , unspeci ADAM Palma IN M 03/07 [facility] [place] [facility] Outpatient Encounter [id number] HUDSON MORENO RYL E [facility] [place] [facility] Outpatient Encounter [id number] ED,ER IN M 03/12 [facility] [place] [facility] Outpatient Encounter [id number] 03/30 [facility] [place] [facility] HEMOGLOBIN [id number] Diagnos is: ICD-10- CM J44.9 Chronic obstruc tive pulmona ry disease , unspeci fied CUAUHTEMOC,ONEIL HUIZAR H 03/30 [facility] [place] [facility] Outpatient Encounter [id number] EDER IN 04/24 [facility] [place] [facility] Outpatient Encounter [id number] EDER IN 04/24 [facility] [place] [facility] Outpatient Encounter [id number] 04/30 [facility] OFF[facility] O/P NEW MOD 45 MIN [id number] Diagnos is: ICD-10- CM J44.9 Chronic obstruc tive pulmona ry disease , unspeci fied YAZMIN INTERIAON K 04/30 [facility] [place] [facility] Outpatient Encounter [id number] HUDSON MORENO RYL E 05/01 [facility] [place] [facility] Outpatient Encounter [id number] 05/01 [facility] PH1 ASSMT&MGMT NQHP 5-10 [id number] Diagnos is: ICD-10- CM J44.9 Chronic obstruc tive pulmona ry disease , unspeci fied RICKI BETANCOURT 05/01 [facility] [place] [facility] Outpatient Encounter [id number] 05/07 [place] [facility] [place] [facility] Outpatient Encounter [id number] 06/26 [place] [facility] [place] [facility] Outpatient Encounter [id number] 08/03 [place] [facility] [place] [facility] OFFICE O/P EST LOW 20 MIN [id number] Diagnos is: ICD-10- CM M25.511 Pain in right bobe r ED,ER IN M 08/03 [place] [facility] [place] [facility] Outpatient Encounter [id number] 10/03 [place] [facility] Social History Combined list of available smoking, tobacco, and other social history from Department of Defense and Veterans Affairs facilities. Social History Type Response Date Comment Sourc e Tobacco smoking status NH[facility] CT-TOBACCO USE FORMER CIGARETTES 03/07/2024 [facility] History of tobacco use [facility] NEVER [facility]ED OTHER TYPE 03/07/2024 [facility] History of tobacco use CT-TOBACCO FORMER USER 03/04/2023 [facility] History of tobacco use CT-TOBACCO FORMER USER 02/16/2021 [facility] History of tobacco use CT-TOBACCO QUIT 1 5 YRS OR MORE 12/11/2018 [facility] History of tobacco use FORMER TOBACCO US ER 7Y OR GREATER 11/09/2017 [facility] History of tobacco use FORMER TOBACCO US ER 7Y OR GREATER 12/29/2016 [facility] History of tobacco use FORMER TOBACCO US ER 7Y OR GREATER 03/03/2016 [facility] History of tobacco use FORMER TOBACCO US E >1Y <7Y 02/19/2015 [facility] History of tobacco use FORMER TOBACCO US E >1Y <7Y 02/06/2014 [facility]
--- OUTSIDE RECORDS SUMMARY | 2024-10-12 14:22 | XMS_ITS | Continuity of Care Document ---
Author Name [facility] Organization [facility] Care Team Providers Care Seismograph Shooter Name Role Phone [facility] Unavailable Unavailable Problems Combined list of problems from [facility] and [facility] facilities. It does not include entries that were removed or entered in error. 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) Active Condition Mar 07, 2024 Entered By: MALLIKA WARD Comment: STEMI 2007 90% mLCx s/p [facility] Chronic obstructive lung disease Active Condition Jul 15, 2014 Entered By: MOISES DE LA PAZ Comment: 06/2014 PFT: FEV1 62.9, FEV1/FVC 62 -> mod obstruction [facility] Co[facility] [place] Dr.Richard Mullen Active Condition [facility] Edema of lower leg Active Condition [facility] Hip pain Active Condition [facility] Hyperglycemia Active Condition [facility] Hyperlipidemia Active Condition [facility] Hypertension Active Condition [facility] Obesity Active Condition [facility] Shoulder pain Active Condition [facility] Diagnosis: ICD-10-CM M25.511 Pain in right shoulder Active Diagnosis [facility] Diagnosis: ICD-10-CM J44.9 Chronic obstructive pulmonary disease, unspecified Active Diagnosis [facility] Medications Combined list of outpatient medications from Department [facility] and [facility] facilities.Medications provided include 1) outpatient medications from [...] BREATH RESPIR ATORY (INHAL ATION) ACTIVE 03/08/2025 [id number] Lee WARD 2023 2 [facility] ALBUTEROL SO4 0.083% INHL,3ML INHALE 3ML NEBS FOUR TIMES A DAY NEEDED FOR SHORTNES S OF BREATH NEBULI ZATION ACTIVE 03/08/2025 [id number] Lee WARD 2023 90 [place] [facility] [place] [facility] ALBUTEROL SO4 3MG/IPRATRO PIUM BR 0.5MG/3ML INHL,3ML INHALE 3ML IN NEBULIZE R BY INHALATI ON FOUR TIMES A DAY FOR COPD RESPIR ATORY (INHAL ATION) DISCONT INUED BY PROVIDE R 07/18/2024 [id number] LETI TAYLOR 2023 360 [facility] [place] [facility] ASPIRIN TAB TAKE 81MG BY MOUTH EVERY DAY ORAL ACTIVE APRIL DE LA PAZ 2019 [facility] [place] [facility] ATORVASTATI N [place] 40MG TAB TAKE ONE TABLET BY MOUTH AT BEDTIME FOR CHOLESTE ROL ORAL ACTIVE 11/25/2024 [id number] LYDIA LEMOS 2024 90 [facility] [place] 80MG TAB TAKE ONE-HALF TABLET BY MOUTH AT BEDTIME FOR CHOLESTE ROL ORAL DISCONT INUED 11/25/2024 [id number] 5 LYDIA LEMSO 2023 45 [facility] [place] [facility] [place] 80MG TAB TAKE ONE-HALF TABLET BY MOUTH AT BEDTIME FOR CHOLESTE ROL ORAL DISCONT INUED 02/06/2024 [id number] APRIL DE LA PAZ 2022 45 [facility] CICLESONIDE 160MCG/SPRA Y INHL,ORAL,6 .1GM INHALE 1 PUFF BY MOUTH TWICE A DAY COPD WITH FREQUENT EXACERBA TIONS RESPIR ATORY (INHAL ATION) ACTIVE 05/01/2025 [id number] YAZMIN INTERIANO 2024 3 [facility] [place] [facility] DOXYCYCLINE HYCLATE 100MG TAB TAKE ONE TABLET BY MOUTH TWICE A DAY FOR BRONCHIT IS ORAL 04/06/2024 [id number] Lee WARD 2023 10 [facility] IBUPROFEN 200MG TAB TAKE ONE TABLET BY MOUTH THREE TIMES A DAY NEEDED ORAL ACTIVE ADALI DOMINGO PH S 2014 [facility] METOPROLOL TARTRATE 50MG TAB TAKE ONE TABLET BY MOUTH TWICE A DAY ORAL ACTIVE 03/08/2025 [id number] Lee WARD 2024 180 [facility] METOPROLOL TARTRATE 50MG TAB TAKE ONE TABLET BY MOUTH TWICE A DAY ORAL DISCONT INUED 03/04/2024 [id number] APRIL DE LA PAZ 2023 180 [facility] OLODATEROL 2.5MCG/TIOT ROPIUM 2.5MCG/ACTU AT INHL,ORAL,6 0D,4GM INHALE 2 PUFFS BY INHALATI ON EVERY DAY FOR COPD RESPIR ATORY (INHAL ATION) ACTIVE 03/08/2025 [id number] Lee WARD 2023 3 [facility] OMEPRAZOLE 20MG CAP,EC TAKE ONE CAPSULE BY MOUTH EVERY DAY ORAL ACTIVE 04/25/2025 [id number] Lee WARD 2024 90 [facility] OMEPRAZOLE 20MG CAP,EC TAKE ONE CAPSULE BY MOUTH EVERY DAY ORAL DISCONT INUED 03/04/2024 [id number] 4 JANIE DORADO 2023 90 [facility] PREDNISONE 20MG TAB TAKE TWO TABLETS BY MOUTH EVERY MORNING FOR COPD EXACERBA TION. ORAL 04/06/2024 [id number] Lee WARD 2023 10 [facility] Immunizations Combined list of available immunizations from the Department of Defense and Veterans Affairs facilities. Immunization Series Date Given Administered By Site Reaction Lot Number CVX Code Drug Telephone Lines Repairer Status Comments Source COVID-19 (PFIZER), MRNA, LNP-S, PF, JAH-SUCROSE, 30 MCG/0.3 ML (AGES 12+ YEARS) 2024 CRESENCIO VILLEGAS LEFT DELTO ID [id number] 309 complet ed [facility] [place], [facility] RSV, BIVALENT, PROTEIN SUBUNIT RSVPREF, DILUENT RECONSTITUTED , 0.5 ML, PF 2023 CRESENCIO VILLEGAS MIGUELINA LEFT DELTO ID [id number] 305 complet ed [facility] [place] [facility] [place], [facility] COVID-19 (MODERNA), MRNA, LNP-S, PF, 50 MCG/0.5 ML (AGES 12+ YEARS) 2023 312 complet ed HISTORICA L INFORMATI ON - FROM OTHER REGISTRY, [facility] INFLUENZA, ADJUVANTED, TRIVALENT, PF 2023 168 complet ed HISTORICA L INFORMATI ON - FROM OTHER REGISTRY, [facility] TDAP 2022 JERRI SANTILLAN LEFT DELTO ID [id number] 115 complet ed [facility] [place] [facility] [place], [facility] COVID-19 (PFIZER), MRNA, LNP-S, PF, JAH-SUCROSE, 30 MCG/0.3 ML (AGES 12+ YEARS) 1 2022 JERRI SANTILLAN LEFT DELTO ID [id number] 309 complet ed [facility] [place] [facility] [place], [facility] INFLUENZA VACCINE, QUADRIVALENT, ADJUVANTED 2022 205 complet ed HISTORICA L INFORMATI ON - FROM OTHER REGISTRY, [facility] ZOSTER RECOMBINANT 2 2022 HELENA MYERS LEFT DELTO ID [id number] 187 complet ed [facility] [place], [id number] [facility] COVID-19 (PFIZER), MRNA, LNP-S, BIVALENT, PF, 30 MCG/0.3 ML DOSE 2021 300 complet ed HISTORICA L INFORMATI ON - FROM OTHER REGISTRY, [facility] ZOSTER RECOMBINANT 1 2021 187 complet ed [facility] INFLUENZA VACCINE, QUADRIVALENT, ADJUVANTED 2021 205 complet ed HISTORICA L INFORMATI ON - FROM OTHER REGISTRY, [facility] COVID-19 (PFIZER), MRNA, LNP-S, PF, 30 MCG/0.3 ML DOSE, JAH-SUCROSE (AGES 12+ YEARS) 2021 217 complet ed HISTORICA L INFORMATI ON - FROM OTHER REGISTRY, [facility] COVID-19 (PFIZER), MRNA, LNP-S, PF, 30 MCG/0.3 ML DOSE 3 2020 208 complet ed PFR; [id number]; 1 [facility] INFLUENZA, INJECTABLE, QUADRIVALENT, PRESERVATIVE FREE 2020 150 complet ed [facility] COVID-19 (PFIZER), MRNA, LNP-S, PF, 30 MCG/0.3 ML DOSE 2 2020 208 complet ed [facility] COVID-19 (PFIZER), MRNA, LNP-S, PF, 30 MCG/0.3 ML DOSE 1 2020 208 complet ed [facility] INFLUENZA, INJECTABLE, QUADRIVALENT, PRESERVATIVE FREE 2019 150 complet ed [facility] INFLUENZA, SEASONAL, INJECTABLE, PRESERVATIVE FREE 2018 140 complet ed [facility] INFLUENZA, TRIVALENT, ADJUVANTED 2017 168 complet ed HISTORICA L INFORMATI ON - FROM OTHER REGISTRY, [facility] INFLUENZA, SEASONAL, INJECTABLE, PRESERVATIVE FREE 2017 140 complet ed [facility] INFLUENZA, HIGH DOSE SEASONAL 2016 135 complet ed [facility] PNEUMOCOCCAL POLYSACCHARID E PPV23 2015 33 complet ed [employer]; [id number]; 8 [facility] INFLUENZA, HIGH DOSE SEASONAL 2015 135 complet ed [facility] PNEUMOCOCCAL CONJUGATE PCV 13 2014 133 complet ed [employer], [facility] INFLUENZA, HIGH DOSE SEASONAL 2014 135 complet ed [facility] ZOSTER LIVE 2013 121 complet ed [employer] [id number] [facility] INFLUENZA, UNSPECIFIED FORMULATION 2013 88 complet ed [facility] INFLUENZA, UNSPECIFIED FORMULATION 2012 88 complet ed [facility] INFLUENZA, SEASONAL, INJECTABLE 2011 141 complet ed HISTORICA L INFORMATI ON - FROM OTHER REGISTRY, [facility] INFLUENZA, SEASONAL, INJECTABLE, PRESERVATIVE FREE 2010 140 complet ed HISTORICA L INFORMATI ON - FROM OTHER REGISTRY, [facility] PNEUMOCOCCAL POLYSACCHARID E PPV23 2010 33 complet ed [facility] TDAP 2010 115 complet ed [facility] Results Combined list of recent chemistry, hematology and other laboratory results from Department of Defense and Veterans Affairs, ranging from 15 months to all on record, depending upon the facility. Order Name Results Value Reference Range Date Interpretation Specimen Comments Source ALT/SGPT ALANINE AMINOTRANSF ERASE [ENZYMATIC ACTIVITY/VO LUME] IN SERUM OR PLASMA 23 U/L <44 - 44 03/07 Specimen Type: PLASMA No comment entered. Ordering Provider: HAKEEM DORADO Report Released Date/Time: Mar 04, 2023 07:12 PM Reporting Lab: [facility] [address] Performing Lab: [facility] [address] [facility] AST/SGOT ASPARTATE AMINOTRANSF ERASE [ENZYMATIC ACTIVITY/VO LUME] IN SERUM OR PLASMA 27 U/L 11 - 34 03/07 Specimen Type: PLASMA No comment entered. Ordering Provider: HAKEEM DORADO Report Released Date/Time: Mar 04, 2023 07:12 PM Reporting Lab: [facility] [address] Performing Lab: [facility] [address] [facility] BASIC METABOLIC PANEL+MG CREATININE [MASS/VOLUM E] IN SERUM OR PLASMA 1.2 mg/dL 0.7 - 1.2 03/07 Specimen Type: PLASMA No comment entered. Ordering Provider: HAKEEM DORADO Report Released Date/Time: Mar 04, 2023 07:12 PM Reporting Lab: [facility] [address] Performing Lab: [facility] [address] [facility] BASIC METABOLIC PANEL+MG UREA NITROGEN [MASS/VOLUM E] IN SERUM OR PLASMA 17 mg/dL 8 - 26 03/07 Specimen Type: PLASMA No comment entered. Ordering Provider: HAKEEM DORADO Report Released Date/Time: Mar 04, 2023 07:12 PM Reporting Lab: [facility] [address] Performing Lab: [facility] [address] [place] [facility] BASIC METABOLIC PANEL+MG GLUCOSE [MASS/VOLUM E] IN SERUM OR PLASMA 91 mg/dL 70 - 100 03/07 Specimen Type: PLASMA No comment entered. Ordering Provider: HAKEEM DORADO Report Released Date/Time: Mar 04, 2023 07:12 PM Reporting Lab: [facility] [address] Performing Lab: [facility] [address] [place] [facility] BASIC METABOLIC PANEL+MG SODIUM [MOLES/VOLU ME] IN SERUM OR PLASMA 138 mmol/L 136 - 145 03/07 Specimen Type: PLASMA No comment entered. Ordering Provider: HAKEEM DORADO Report Released Date/Time: Mar 04, 2023 07:12 PM Reporting Lab: [facility] [address] Performing Lab: [facility] [address] [place] [facility] BASIC METABOLIC PANEL+MG POTASSIUM [MOLES/VOLU ME] IN SERUM OR PLASMA 4.9 mmol/L 3.5 - 5.1 03/07 Specimen Type: PLASMA No comment entered. Ordering Provider: HAKEEM DORADO Report Released Date/Time: Mar 04, 2023 07:12 PM Reporting Lab: [facility] [address] Performing Lab: [facility] [address] [place] [facility] BASIC METABOLIC PANEL+MG CHLORIDE [MOLES/VOLU ME] IN SERUM OR PLASMA 104 mmol/L 98 - 107 03/07 Specimen Type: PLASMA No comment entered. Ordering Provider: HAKEEM DORADO Report Released Date/Time: Mar 04, 2023 07:12 PM Reporting Lab: [facility] [address] Performing Lab: [facility] [address] [place] [facility] BASIC METABOLIC PANEL+MG CARBON DIOXIDE, TOTAL [MOLES/VOLU ME] IN SERUM OR PLASMA 30 mmol/L 22 - 29 03/07 H Specimen Type: PLASMA No comment entered. Ordering Provider: HAKEEM DORADO Report Released Date/Time: Mar 04, 2023 07:12 PM Reporting Lab: [facility] [address] Performing Lab: [facility] [address] [place] [facility] BASIC METABOLIC PANEL+MG CALCIUM [MASS/VOLUM E] IN SERUM OR PLASMA 9.1 mg/dL 8.4 - 10.2 03/07 Specimen Type: PLASMA No comment entered. Ordering Provider: HAKEEM DORADO Report Released Date/Time: Mar 04, 2023 07:12 PM Reporting Lab: [facility] [address] Performing Lab: [facility] [address] [place] [facility] BASIC METABOLIC PANEL+MG MAGNESIUM [MASS/VOLUM E] IN SERUM OR PLASMA 2.1 mg/dL 1.6 - 2.6 03/07 Specimen Type: PLASMA No comment entered. Ordering Provider: HAKEEM DORADO Report Released Date/Time: Mar 04, 2023 07:12 PM Reporting Lab: [facility] [address] Performing Lab: [facility] [address] [place] [facility] BASIC METABOLIC PANEL+MG ANION GAP IN SERUM OR PLASMA 4 mmol/L 5 - 15 03/07 L Specimen Type: PLASMA No comment entered. Ordering Provider: HAKEEM DORADO Report Released Date/Time: Mar 04, 2023 07:12 PM Reporting Lab: [facility] [address] Performing Lab: [facility] [address] [place] [facility] BASIC METABOLIC PANEL+MG GLOMERULAR FILTRATION RATE/1.73 SQ M.PREDICTED [VOLUME RATE/AREA] IN SERUM, PLASMA OR BLOOD BY CREATININE- BASED FORMULA (CKD-EPI 2020) 63 60 03/07 Specimen Type: PLASMA No comment entered. Ordering Provider: HAKEEM DORADO Report Released Date/Time: Mar 04, 2023 07:12 PM Reporting Lab: [facility] [address] Performing Lab: [facility] [address] [place] [facility] CBC & DIFF LEUKOCYTES [#/VOLUME] IN BLOOD BY AUTOMATED COUNT 8.7 4.0 - 11.0 03/07 Specimen Type: BLOOD Comment: Automated Differentia l Performed Ordering Provider: HAKEEM DORADO Report Released Date/Time: Mar 04, 2023 07:12 PM Reporting Lab: [facility] [address] Performing Lab: [facility] [address] [place] [facility] CBC & DIFF ERYTHROCYTE S [#/VOLUME] IN BLOOD BY AUTOMATED COUNT 4.39 4.60 - 6.20 03/07 L Specimen Type: BLOOD Comment: Automated Differentia l Performed Ordering Provider: HAKEEM DORADO Report Released Date/Time: Mar 04, 2023 07:12 PM Reporting Lab: [facility] [address] Performing Lab: [facility] [address] [place] [facility] CBC & DIFF HEMOGLOBIN [MASS/VOLUM E] IN BLOOD 13.5 g/dL 13.5 - 17.9 03/07 Specimen Type: BLOOD Comment: Automated Differentia l Performed Ordering Provider: HAKEEM DORADO Report Released Date/Time: Mar 04, 2023 07:12 PM Reporting Lab: [facility] [address] Performing Lab: [facility] [address] [place] [facility] CBC & DIFF HEMATOCRIT [VOLUME FRACTION] OF BLOOD BY AUTOMATED COUNT 42.5 41.0 - 54.0 03/07 Specimen Type: BLOOD Comment: Automated Differentia l Performed Ordering Provider: HAKEEM DORADO Report Released Date/Time: Mar 04, 2023 07:12 PM Reporting Lab: [facility] [address] Performing Lab: [facility] [address] [place] [facility] CBC & DIFF MCV [ENTITIC VOLUME] BY AUTOMATED COUNT 96.8 fL 80.0 - 100.0 03/07 Specimen Type: BLOOD Comment: Automated Differentia l Performed Ordering Provider: HAKEEM DORADO Report Released Date/Time: Mar 04, 2023 07:12 PM Reporting Lab: [facility] [address] Performing Lab: [facility] [address] [place] [facility] CBC & DIFF MCH [ENTITIC MASS] BY AUTOMATED COUNT 30.8 pg 27.0 - 33.0 03/07 Specimen Type: BLOOD Comment: Automated Differentia l Performed Ordering Provider: HAKEEM DORADO Report Released Date/Time: Mar 04, 2023 07:12 PM Reporting Lab: [facility] [address] Performing Lab: [facility] [address] [place] [facility] CBC & DIFF MCHC [MASS/VOLUM E] BY AUTOMATED COUNT 31.8 g/dL 32.0 - 37.5 03/07 L Specimen Type: BLOOD Comment: Automated Differentia l Performed Ordering Provider: HAKEEM DORADO Report Released Date/Time: Mar 04, 2023 07:12 PM Reporting Lab: [facility] [address] Performing Lab: [facility] [address] [place] [facility] CBC & DIFF PLATELETS [#/VOLUME] IN BLOOD BY AUTOMATED COUNT 231 150 - 400 03/07 Specimen Type: BLOOD Comment: Automated Differentia l Performed Ordering Provider: HAKEEM DORADO Report Released Date/Time: Mar 04, 2023 07:12 PM Reporting Lab: [facility] [address] Performing Lab: [facility] [address] [place] [facility] CBC & DIFF PLATELET MEAN VOLUME [ENTITIC VOLUME] IN BLOOD BY AUTOMATED COUNT 9.6 fL 9.1 - 13.0 03/07 Specimen Type: BLOOD Comment: Automated Differentia l Performed Ordering Provider: HAKEEM DORADO Report Released Date/Time: Mar 04, 2023 07:12 PM Reporting Lab: [facility] [address] Performing Lab: [facility] [address] [place] [facility] CBC & DIFF NEUTROPHILS /100 LEUKOCYTES IN BLOOD BY MANUAL COUNT 60.6 40.0 - 80.0 03/07 Specimen Type: BLOOD Comment: Automated Differentia l Performed Ordering Provider: HAKEEM DORADO Report Released Date/Time: Mar 04, 2023 07:12 PM Reporting Lab: [facility] [address] Performing Lab: [facility] [address] [place] [facility] CBC & DIFF LYMPHOCYTES /100 LEUKOCYTES IN BLOOD BY MANUAL COUNT 25.5 15.0 - 45.0 03/07 Specimen Type: BLOOD Comment: Automated Differentia l Performed Ordering Provider: HAKEEM DORADO Report Released Date/Time: Mar 04, 2023 07:12 PM Reporting Lab: [facility] [address] Performing Lab: [facility] [address] [place] [facility] CBC & DIFF MONOCYTES/1 00 LEUKOCYTES IN BLOOD BY AUTOMATED COUNT 9.8 2.0 - 12.0 03/07 Specimen Type: BLOOD Comment: Automated Differentia l Performed Ordering Provider: HAKEEM DORADO Report Released Date/Time: Mar 04, 2023 07:12 PM Reporting Lab: [facility] [address] Performing Lab: [facility] [address] [place] [facility] CBC & DIFF EOSINOPHILS /100 LEUKOCYTES IN BLOOD BY AUTOMATED COUNT 3.3 0.0 - 6.0 03/07 Specimen Type: BLOOD Comment: Automated Differentia l Performed Ordering Provider: HAKEEM DORADO Report Released Date/Time: Mar 04, 2023 07:12 PM Reporting Lab: [facility] [address] Performing Lab: [facility] [address] [place] [facility] CBC & DIFF BASOPHILS/1 00 LEUKOCYTES IN BLOOD BY MANUAL COUNT 0.7 0.0 - 2.0 03/07 Specimen Type: BLOOD Comment: Automated Differentia l Performed Ordering Provider: HAKEEM DORADO Report Released Date/Time: Mar 04, 2023 07:12 PM Reporting Lab: [facility] [address] Performing Lab: [facility] [address] [place] [facility] CBC & DIFF ERYTHROCYTE DISTRIBUTIO N WIDTH [RATIO] BY AUTOMATED COUNT 13.8 11.5 - 14.5 03/07 Specimen Type: BLOOD Comment: Automated Differentia l Performed Ordering Provider: HAKEEM DORADO Report Released Date/Time: Mar 04, 2023 07:12 PM Reporting Lab: [facility] [address] Performing Lab: [facility] [address] [place] [facility] CBC & DIFF LYMPHOCYTES [#/VOLUME] IN BLOOD BY AUTOMATED COUNT 2.2 1.0 - 4.0 03/07 Specimen Type: BLOOD Comment: Automated Differentia l Performed Ordering Provider: HAKEEM DORADO Report Released Date/Time: Mar 04, 2023 07:12 PM Reporting Lab: [facility] [address] Performing Lab: [facility] [address] [place] [facility] CBC & DIFF MONOCYTES [#/VOLUME] IN BLOOD BY AUTOMATED COUNT 0.9 0.1 - 1.0 03/07 Specimen Type: BLOOD Comment: Automated Differentia l Performed Ordering Provider: HAKEEM DORADO Report Released Date/Time: Mar 04, 2023 07:12 PM Reporting Lab: [facility] [address] Performing Lab: [facility] [address] [place] [facility] CBC & DIFF NEUTROPHILS [#/VOLUME] IN BLOOD BY AUTOMATED COUNT 5.3 2.0 - 7.7 03/07 Specimen Type: BLOOD Comment: Automated Differentia l Performed Ordering Provider: HAKEEM DORADO Report Released Date/Time: Mar 04, 2023 07:12 PM Reporting Lab: [facility] [address] Performing Lab: [facility] [address] [place] [facility] CBC & DIFF EOSINOPHILS [#/VOLUME] IN BLOOD BY AUTOMATED COUNT 0.3 0.0 - 0.5 03/07 Specimen Type: BLOOD Comment: Automated Differentia l Performed Ordering Provider: HAKEEM DORADO Report Released Date/Time: Mar 04, 2023 07:12 PM Reporting Lab: [facility] [address] Performing Lab: [facility] [address] [place] [facility] CBC & DIFF BASOPHILS [#/VOLUME] IN BLOOD BY AUTOMATED COUNT 0.1 0.0 - 0.2 03/07 Specimen Type: BLOOD Comment: Automated Differentia l Performed Ordering Provider: HAKEEM DORADO Report Released Date/Time: Mar 04, 2023 07:12 PM Reporting Lab: [facility] [address] Performing Lab: [facility] [address] [place] [facility] CBC & DIFF IG(META,MYE LO,PRO) 0.1 03/07 Specimen Type: BLOOD Comment: Automated Differentia l Performed Ordering Provider: HAKEEM DORADO Report Released Date/Time: Mar 04, 2023 07:12 PM Reporting Lab: [facility] [address] Performing Lab: [facility] [address] [place] [facility] CBC & DIFF IMMATURE GRANULOCYTE S [PRESENCE] IN BLOOD BY AUTOMATED COUNT 0.0 0.0 - 0.1 03/07 Specimen Type: BLOOD Comment: Automated Differentia l Performed Ordering Provider: HAKEEM DORADO Report Released Date/Time: Mar 04, 2023 07:12 PM Reporting Lab: [facility] [address] Performing Lab: [facility] [address] [place] [facility] HEMOGLOBI N A1C HEMOGLOBIN A1C/HEMOGLO BIN.TOTAL IN [...] Mar 04, 2023 07:12 PM Reporting Lab: [facility] [address] Performing Lab: [facility] [address] [place] [facility] LIPID PANEL,NON -FASTING CHOLESTEROL [MASS/VOLUM E] IN SERUM OR PLASMA 137 mg/dL <199 - 199 03/07 Specimen Type: PLASMA No comment entered. Ordering Provider: NOAH WARD Report Released Date/Time: Mar 07, 2024 02:24 PM Reporting Lab: [facility] [address] Performing Lab: [facility] [address] [place] [facility] LIPID PANEL,NON -FASTING CHOLESTEROL IN HDL [MASS/VOLUM E] IN SERUM OR PLASMA 51 mg/dL 40 03/07 Specimen Type: PLASMA No comment entered. Ordering Provider: NOAH WARD Report Released Date/Time: Mar 07, 2024 02:24 PM Reporting Lab: [facility] [address] Performing Lab: [facility] [id number] [place] [facility] LIPID PANEL,NON -FASTING CHOLESTEROL IN LDL [MASS/VOLUM E] IN SERUM OR PLASMA BY CALCULATION 68 mg/dL <99 - 99 03/07 Specimen Type: PLASMA No comment entered. Ordering Provider: NOAH WARD Report Released Date/Time: Mar 07, 2024 02:24 PM Reporting Lab: [facility] [id number] Performing Lab: [facility] [id number] [place] [facility] LIPID PANEL,NON -FASTING CHOLESTEROL IN VLDL [MASS/VOLUM E] IN SERUM OR PLASMA BY CALCULATION 18 mg/dL <29 - 29 03/07 Specimen Type: PLASMA No comment entered. Ordering Provider: NOAH WARD Report Released Date/Time: Mar 07, 2024 02:24 PM Reporting Lab: [facility] [id number] Performing Lab: [facility] [id number] [place] [facility] LIPID PANEL,NON -FASTING CHOLESTEROL NON HDL [MASS/VOLUM E] IN SERUM OR PLASMA 86 mg/dL <129 - 129 03/07 Specimen Type: PLASMA No comment entered. Ordering Provider: NOAH WARD Report Released Date/Time: Mar 07, 2024 02:24 PM Reporting Lab: [facility] [id number] Performing Lab: [facility] [id number] [place] [facility] LIPID PANEL,NON -FASTING TRIGLYCERID E [MASS/VOLUM E] IN SERUM OR PLASMA 88 mg/dL <149 - 149 03/07 Specimen Type: PLASMA No comment entered. Ordering Provider: NOAH WARD Report Released Date/Time: Mar 07, 2024 02:24 PM Reporting Lab: [facility] [address] Performing Lab: [facility] [address] [place] [facility] ALT/SGPT ALANINE AMINOTRANSF ERASE [ENZYMATIC ACTIVITY/VO LUME] IN SERUM OR PLASMA 12 U/L <55 - 55 03/04 Specimen Type: PLASMA No comment entered. Ordering Provider: HAKEEM DORADO Report Released Date/Time: Mar 04, 2023 09:37 AM Reporting Lab: [facility] [address] Performing Lab: [facility] [address] [place] [facility] AST/SGOT ASPARTATE AMINOTRANSF ERASE [ENZYMATIC ACTIVITY/VO LUME] IN SERUM OR PLASMA 19 U/L <34 - 34 03/04 Specimen Type: PLASMA No comment entered. Ordering Provider: HAKEEM DORADO Report Released Date/Time: Mar 04, 2023 09:37 AM Reporting Lab: [facility] [address] Performing Lab: [facility] [address] [place] [facility] BASIC METABOLIC PANEL+MG CREATININE [MASS/VOLUM E] IN SERUM OR PLASMA 1.1 mg/dL 0.7 - 1.2 03/04 Specimen Type: PLASMA No comment entered. Ordering Provider: HAKEEM DORADO Report Released Date/Time: Mar 04, 2023 09:37 AM Reporting Lab: [facility] [address] Performing Lab: [facility] [address] [place] [facility] BASIC METABOLIC PANEL+MG UREA NITROGEN [MASS/VOLUM E] IN SERUM OR PLASMA 17 mg/dL 8 - 26 03/04 Specimen Type: PLASMA No comment entered. Ordering Provider: HAKEEM DORADO Report Released Date/Time: Mar 04, 2023 09:37 AM Reporting Lab: [facility] [address] Performing Lab: [facility] [address] [place] [facility] BASIC METABOLIC PANEL+MG GLUCOSE [MASS/VOLUM E] IN SERUM OR PLASMA 87 mg/dL 70 - 100 03/04 Specimen Type: PLASMA No comment entered. Ordering Provider: HAKEEM DORADO Report Released Date/Time: Mar 04, 2023 09:37 AM Reporting Lab: [facility] [address] Performing Lab: [facility] [address] [place] [facility] BASIC METABOLIC PANEL+MG SODIUM [MOLES/VOLU ME] IN SERUM OR PLASMA 140 mmol/L 136 - 145 03/04 Specimen Type: PLASMA No comment entered. Ordering Provider: HAKEEM DORADO Report Released Date/Time: Mar 04, 2023 09:37 AM Reporting Lab: [facility] [address] Performing Lab: [facility] [address] [place] [facility] BASIC METABOLIC PANEL+MG POTASSIUM [MOLES/VOLU ME] IN SERUM OR PLASMA 4.4 mmol/L 3.5 - 5.1 03/04 Specimen Type: PLASMA No comment entered. Ordering Provider: HAKEEM DORADO Report Released Date/Time: Mar 04, 2023 09:37 AM Reporting Lab: [facility] [address] Performing Lab: [facility] [address] [place] [facility] BASIC METABOLIC PANEL+MG CHLORIDE [MOLES/VOLU ME] IN SERUM OR PLASMA 102 mmol/L 98 - 107 03/04 Specimen Type: PLASMA No comment entered. Ordering Provider: HAKEEM DORADO Report Released Date/Time: Mar 04, 2023 09:37 AM Reporting Lab: [facility] [address] Performing Lab: [facility] [address] [place] [facility] BASIC METABOLIC PANEL+MG CARBON DIOXIDE, TOTAL [MOLES/VOLU ME] IN SERUM OR PLASMA 30 mmol/L 22 - 29 03/04 H Specimen Type: PLASMA No comment entered. Ordering Provider: AHKEEM DORADO Report Released Date/Time: Mar 04, 2023 09:37 AM Reporting Lab: [facility] [address] Performing Lab: [place] [address] [place] [facility] BASIC METABOLIC PANEL+MG CALCIUM [MASS/VOLUM E] IN SERUM OR PLASMA 9.0 mg/dL 8.4 - 10.2 03/04 Specimen Type: PLASMA No comment entered. Ordering Provider: HAKEEM DORADO Report Released Date/Time: Mar 04, 2023 09:37 AM Reporting Lab: [facility] [address] Performing Lab: [place] [address] [place] [facility] BASIC METABOLIC PANEL+MG MAGNESIUM [MASS/VOLUM E] IN SERUM OR PLASMA 2.1 mg/dL 1.6 - 2.6 03/04 Specimen Type: PLASMA No comment entered. Ordering Provider: HAKEEM DORADO Report Released Date/Time: Mar 04, 2023 09:37 AM Reporting Lab: [facility] [address] Performing Lab: [facility] [address] [place] [facility] BASIC METABOLIC PANEL+MG ANION GAP IN SERUM OR PLASMA 8 mmol/L 5 - 15 03/04 Specimen Type: PLASMA No comment entered. Ordering Provider: HAKEEM DORADO Report Released Date/Time: Mar 04, 2023 09:37 AM Reporting Lab: [facility] [address] Performing Lab: [facility] [address] [place] [facility] BASIC METABOLIC PANEL+MG GLOMERULAR FILTRATION RATE/1.73 SQ M.PREDICTED [VOLUME RATE/AREA] IN SERUM, PLASMA OR BLOOD BY CREATININE- BASED FORMULA (CKD-EPI 2020) 70 60 03/04 Specimen Type: PLASMA No comment entered. Ordering Provider: HAKEEM DORADO Report Released Date/Time: Mar 04, 2023 09:37 AM Reporting Lab: [facility] [address] Performing Lab: [facility] [address] [place] [facility] HEMOGLOBI N A1C HEMOGLOBIN A1C/HEMOGLO BIN.TOTAL IN [...] Mar 04, 2023 09:37 AM Reporting Lab: [facility] [address] [facility] [address] Performing Lab: [facility] [address] [facility] [address] [facility] Vital Signs Combined list of inpatient and outpatient Vital Signs from Department of Defense and Veterans Affairs, ranging from 12 months to all on record, depending upon the facility. Vital Sign Value Date Comments Source SYSTOLIC BLOOD PRESSURE 143 08/03/2024 13:15:25 [facility] DIASTOLIC BLOOD PRESSURE 78 08/03/2024 13:15:25 [facility] PULSE OXIMETRY 91 08/03/2024 13:15:25 [facility] [place] [facility] WEIGHT 279.8 08/03/2024 13:15:25 [facility] BMI 38 kg/m2 08/03/2024 13:15:25 [facility] PAIN 0 08/03/2024 13:15:25 [facility] TEMPERATURE 98.1 08/03/2024 13:15:25 [facility] PULSE 57 08/03/2024 13:15:25 [facility] RESPIRATION 16 08/03/2024 13:15:25 [facility] SYSTOLIC BLOOD PRESSURE 152 04/30/2024 11:35:21 [facility] DIASTOLIC BLOOD PRESSURE 80 04/30/2024 11:35:21 [facility] PULSE OXIMETRY 95 04/30/2024 11:35:21 M [...] HCS SYSTOLIC BLOOD PRESSURE 145 03/07/2024 13:14:29 [facility] DIASTOLIC BLOOD PRESSURE 72 03/07/2024 13:14:29 [facility] PULSE OXIMETRY 96 03/07/2024 13:14:29 [place] [facility] WEIGHT 277.4 03/07/2024 13:14:29 [facility] BMI 38 kg/m2 03/07/2024 13:14:29 ERIC NIELSONSenait [facility] PAIN 0 03/07/2024 13:14:29 [facility] NIELSONSenait [facility] TEMPERATURE 98.1 03/07/2024 13:14:29 [facility] PULSE 58 03/07/2024 13:14:29 ERIC NIELSONSenait [facility] RESPIRATION 14 03/07/2024 13:14:29 [facility] Encounters Combined list of: 1) Encounters from Department of Veterans Affairs facilities going backup to the last 18 months, not all [place] inpatient encounters are included; 2) Encounters from the Department of [facility] facilities going backup to 280 months. Location Location Details Encounter Type Encounter Number Reason For Visit Attending Provider ADM Date DC Date Status Disposition Source [place] [facility] Outpatient Encounter [id number] 07/10 [facility] [place] [facility] Outpatient Encounter [id number] 07/28 [facility] [place] [facility] Outpatient Encounter [id number] 12/29 [facility] [place] [facility] Outpatient Encounter [id number] 01/25 [facility] [place] [facility] Outpatient Encounter [id number] 01/26 [facility] [place] [facility] Outpatient Encounter [id number] 03/07 [facility] [place] [facility] Outpatient [facility]counter [id number] 03/07 [facility] [place] [facility] OFFICE O/P EST MOD 30 MIN [id number] Diagnos is: ICD-10- CM J44.9 Chronic obstruc tive pulmona ry disease , unspeci ADAM Palma IN M 03/07 [facility] [place] [facility] Outpatient Encounter [id number] HUDSON MORENO RYL E 03/12 [facility] [place] [facility] Outpatient Encounter [id number] ED,ER IN M 03/12 [facility] [place] [facility] Outpatient Encounter [id number] 03/30 [facility] [place] [facility] HEMOGLOBIN [id number] Diagnos is: ICD-10- CM J44.9 Chronic obstruc tive pulmona ry disease , unspeci fied CUAUHTEMOC,ONEIL HUIZAR H 03/30 [facility] [place] [facility] Outpatient Encounter [id number] EDER IN 04/24 [facility] [place] [facility] Outpatient Encounter [id number] EDER IN 04/24 [facility] [place] [facility] Outpatient Encounter [id number] 04/30 [facility] O/P NEW MOD 45 MIN [id number] Diagnos is: ICD-10- CM J44.9 Chronic obstruc tive pulmona ry disease , unspeci fied YAZMIN INTERIANO K 04/30 [facility] [place] [facility] Outpatient Encounter [id number] HUDSON MORENO RYL E 05/01 [facility] [place] [facility] Outpatient Encounter [id number] 05/01 [facility] PH1 ASSMT&MGMT NQHP 5-10 [id number] Diagnos is: ICD-10- CM J44.9 Chronic obstruc tive pulmona ry disease , unspeci fied RICKI BETANCOURT 05/01 [facility] [place] [facility] Outpatient Encounter [id number] 05/07 [place] [facility] [place] [facility] Outpatient Encounter [id number] 06/26 [place] [facility] [place] [facility] Outpatient Encounter [id number] 08/03 [place] [facility] [place] [facility] OFFICE O/P EST LOW 20 MIN [id number] Diagnos is: ICD-10- CM M25.511 Pain in right bobe r ED,ER IN M 08/03 [facility] [place] [facility] Outpatient Encounter [id number] 10/03 [facility] Social History Combined list of available smoking, tobacco, and other social history from Department of Defense and Veterans Affairs facilities. Social History Type Response Date Comment Sourc e Tobacco smoking status [facility]IS [place]-TOBACCO USE FORMER CIGARETTES 03/07/2024 [facility] of [facility] OTHER [facility] 03/07/2024 [facility] History of tobacco use [place]-TOBACCO FORMER USER 03/04/2023 [facility] History of tobacco use [place]-TOBACCO FORMER USER 02/16/2021 [facility] History of tobacco use [place]-TOBACCO QUIT 1 5 YRS OR MORE 12/11/2018 [facility] History of tobacco use FORMER TOBACCO US ER 7Y OR GREATER 11/09/2017 [facility] History of tobacco use FORMER TOBACCO US ER 7Y OR GREATER 12/29/2016 [facility] History of tobacco use FORMER TOBACCO US ER 7Y OR GREATER 03/03/2016 [facility] History of tobacco use FORMER TOBACCO US E >1Y <7Y 02/19/2015 [facility] History of tobacco use FORMER TOBACCO US E >1Y <7Y 02/06/2014 [facility]
[2024-10-12 19:24] VITALS: BP 203/78; PULSE 64; RESP 20; TEMP 37; O2SAT 96; BMI 37.3
--- OUTSIDE RECORDS SUMMARY | 2024-10-12 19:24 | XMS_ITS | Clinical Summary ---
Author Organization [facility] Address [address] [place] [id number] Care Team Providers Care Passenger Rate Clerk Name Role Phone Jack Mullen MD Primary Care Provider Allergies No known active allergies Medications albuterol HFA (PRO-AIR,VENTOLI N,PROVENTIL) 90 mcg/actuation inhaler Inhale 2 Puffs by mouth every 4 hours while awake. 1 Inhaler 1 12/28/19 13 Active nitroglycerin (NITROSTAT) 0.[address] 1 tablet under the tongue every 5 minutes if needed for Chest Pain. If pt req > 24 doses in 30D, to provider to authorize 25 tablet 2 04/09/19 14 Active metoprolol (LOPRESSOR) 50 mg tablet Take 1 tablet by mouth 2 times daily. 180 tablet 1 10/26/19 14 Active atorvastatin (LIPITOR) 80 mg tablet Take 1 tablet by mouth once daily. 0 06/09/19 16 Active omeprazole (PRILOSEC) 20 mg Delayed-Release capsule Take 1 Capsule by mouth once daily. 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 0 03/01/20 22 Active NebulizerIndicat ions:COPD mixed type (HC) Nebulizer, disposable neb kit x 4, reuseable neb kit x 1, mask x 1, filters x 1. Frequency of use: daily; Medication: DuoNeb Length of need: 99 months 1 Each 09/11/19 23 Active albuterol-ipratr opium (DUONEB) (2.5-0.5 mg) in 3 mL NEBULIZATION solutionIndicati ons:COPD mixed type (HC) Inhale 3 mL via a nebulizer 4 times daily. 75 mL 3 09/11/19 23 Active fluticasone fur-umeclidinium -vilanterol (TRELEGY ELLIPTA) 100-62.5-25 mcg inhalerIndicatio ns:COPD exacerbation (HC) Inhale 1 Puff by mouth once daily. Rinse mouth after use 180 Each 3 07/29/19 24 Active meclizine (ANTIVERT) 25 mg tabletIndication s:Benign paroxysmal positional vertigo, unspecified laterality Take 1 Tablet (25 mg) by mouth 3 times daily if needed for Vertigo. 30 Tablet 07/29/19 24 Active clobetasol (TEMOVATE) 0.05 % creamIndications :Irritant contact dermatitis due to other agents APPLY TOPICALLY TO THE AFFECTED AREA TWICE DAILY 30 g 12/13/19 24 Active guaiFENesin (MUCINEX) 600 mg Extended-Release tabletIndication s:Acute non-recurrent frontal sinusitis Take 1-2 Tablets (600-1,200 mg) by mouth 2 times daily if needed for Expectoration (mucus, wet cough, congestion). 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 202106/04/2021 Vitamin D deficiency 04/10/2014 Hypertension 04/01/2010 Obesity 04/01/2010 Impaired fasting glucose 07/09/2008 Acute myocardial infarction of inferoposterior wall, initial episode of care 06/20/2007 Overview (06/20/2007): - + CP - To [facility]: inferior ST elevation - Level one - angiogram: 90% mLCx, s/p BMS Coronary artery disease 06/20/2007 Overview (10/20/2023): - 06/19/07: s/p BMS to mCx Other and unspecified hyperlipidemia 06/20/2007 Overview (06/20/2007): - goal LDL < 70 - statin rx Resolved Problems Problem Noted Date Diagnosed Date Resolved Date Tobacco use disorder 06/20/2007 013 Overview (06/20/2007): - complete cessation Immunizations Immunization Administration Dates Next Due COVID-19 vaccine ([employer] 30mcg/0.3mL) 12YO+ BIVALENT PF, MDV 03/01/2022 COVID-19 vaccine ([employer] 30mcg/0.3mL) 12YO+ JAH-SUCROSE PF, MDV 07/18/2021 COVID-19 vaccine ([employer] 30mcg/0.3mL) PF, MDV 01/07/2021,05/14/2020,04/23/2020 Influenza Virus, Unspecified 01/02/2014,01/24/20 13 Influenza, High-dose Inactivated 12/29/2016,12/26,01/08/2015 Influenza, IIV3 (Age >=3 years) 12/12/19 19,12/15/2017,02/25/2012,2010,01/09/2009 Influenza, IIV4 01/07/2021,01/11/2020 Influenza, Inactivated AIIV4 (Age 65+ Years) Preserv Free 12/13/2022,01/07/2022 Influenza, Inactivated IIV3 (Age 65+ Years) Preserv Free 12/26/2017 Pneumococcal Poly,23-Valent (Pneumovax) 03/03/2016,02/16/2011 Pneumococcal conj 13-Valent (Prevnar 13) 02/19/2015 Tdap 03/04/2023,02/16/2011 Zoster (Shingrix-RZV, recombinant) 07/06/2022, Zoster (Zostavax-ZVL, live) 02/06/2014 Family History Medical History Relation Name Comments Cancer-colon Brother 2 Heart Disease Father Cancer-colon Mother Anesthesia Problem No Family History Relation Name Status Comments Brother 1 Alive Brother 2 Father Mother Social History Tobacco Use Types Packs/Day Years Used Date Smoking Tobacco: Former Cigarettes Q uit: 10/25/2010 Smokeless Tobacco: Never Tobacco Cessation:Counseling Given: Yes Alcohol Use Standard Drinks/Week Comments No 0 (1 standard drink = 0.6 oz pur e alcohol) PHQ-2 Answer Date Recorded PHQ-2 TOTAL SCORE 0 06/26/2019 Social Connections Answer Date Recorded Do you often feel lonely or isolated from those around you? 0 07/29/2023 Financial Resource Strain Answer Date R ecorded Difficulty of Paying Living Expenses 3 07/29/2023 Difficulty of Paying Living Expenses Not on file 07/29/2023 Food Insecurity Answer Date Recorded Do you worry your food will run out before you are able to buy more? 1 07/29/2023 Transportation Needs Answer Date Record ed Does lack of transportation keep you from medica l appointments? 1 07/29/2023 Does lack of transportation keep you from work, meetings or getting things that you need? 1 07/29/2023 Housing Stability Answer Date Recorded What is your housing situation today? 1 07/29/2023 Utilities Answer Date Recorded Do you have trouble paying f or utilities (for example, heat, electricity, water, phone)? 1 07/29/2023 Sex and Gender Information Value Date Recorded Sex Assigned at Not on file Legal Sex Male 5:25 AM [employer] Gender Identity Not on file Sexual Orientation Not on file Obstetrics History Last Filed Vital Signs Vital Sign Reading Time Taken Comments Blood Pressure 135/78 10/20/2023 12:19 PM CDT Pulse 63 10/20/2023 12:19 PM CDT Temperature 36.1 C (97 F) 07/29/2023 11:48 AM CDT Respiratory Rate 18 06/21/2007 2:00 PM CDT Oxygen Saturation 96% 10/20/2023 12:19 PM CDT Inhaled Oxygen Concentration - - Weight 124 kg (273 lb 6.4 oz) 10/20/2023 12:19 P M CDT Height 183.4 cm (6' 0.21) 09/10/2022 2:58 PM CD T Body Mass Index 36.87 09/10/2022 2:58 PM CDT Plan of Treatment Health Maintenance Due Date Last Done Comments Medicare Wellness for age 65+ 05/27/2012 Depression screening for age 12+ 06/25/2020 06/26/2019, 04/10/2018, 06/15/2016, Additional history exists RSV vaccine for adults or (1 - 1-dose 75+ series) 05/27/2022 BMI (ht and wt on same day) for age 18+ 09/11/2023 09/10/2022, 03/01/2022, 06/04/2021, Additional history exists COVID-19 vaccine series (2023- season) 2023 03/04/2023, 03/01/2022, 07/18/2021, Additional history exists Influenza Vaccine (#1) 2024 , 01/07/2022, 01/07/2021, Additional history exists Tetanus booster 03/04/2033 03/04/2023, 02/16/2011 Pneumococcal series for age 50+ Completed 03/03/2016, 02/19/2015, 02/16/2011 Zoster (shingles) series for age 50+ Completed 07/06/2022, 02/23/2022, 02/06/2014 Hepatitis C screening for age 18-79 Completed 09/10/2022 Hepatitis B series for 19+ Aged Out N o longer eligible based on patient's age to complete this topic Procedures Procedure Name Priority Date/Time Associated Diagnosis Comments LC HCV ANTIBODY RFX TO QUANT PCR Routine 09/10/2022 3:47 PM CDT Need for hepatitis C screening test from Last 3 Months or Most Recently Relevant to Health Maintenance Results * LC HCV ANTIBODY RFX TO QUANT PCR (09/10/2022 3:47 PM CDT) HCV Ab Non Reactive Non Reactive 09/14/2022 1:09 PM CDT [facility] Blood BLOOD SPECIMEN / Unknown Venipuncture / Unknown 09/10/2022 3:47 PM CDT 09/10/2022 3:47 PM CDT Narrative [facility]) - 09/14/2022 1:09 PM CDT Performed at: [address] - [address] [id number] Tour Escort: Milton Gay MD, Phone: [phone] us Jack Mullen MD LABORATORY Final Result [facility] [address] [place] [address], from Last 3 Months or Most Recently Relevant to Health Maintenance Insurance [facility] MR Advance Directives * Full Code (Latest Code Status on File) Date Activated Date Inactivated Comments 06/19/2007 5:01 PM 06/21/2007 6:18 PM Care Teams Passenger Rate Clerk Relationship Specialty Start Date End Date Jack Mullen MD [address] [place] [address] PCP - General 06/22/07
--- NOTE | 2024-10-12 19:41 | ED.GENADULT ---
HPI - General Adult General Chief complaint: Hypertension Stated complaint: neck pain/Hypertension Time Seen by Provider: 10/12/24 19:31 History of Present Illness HPI narrative: This 79-year-old male comes in reporting left-sided posterior neck pain. He does not report any particular injury event or strenuous activity. The pain started a couple days ago any thinks that he might have slept wrong as he woke up with pain in the morning. The pain does not radiate down his left arm. He does not have any midline tenderness. He states that he had some concern about his blood pressure being elevated. He states that his normal blood pressures are in the 120-130 range for systolic value. Related Data Home Medications ?Medication ?Instructions ?Recorded ?Confirmed atorvastatin 80 mg tablet 80 mg PO HS 12/04/21 10/12/24 nitroglycerin 0.4 mg sublingual 0.4 mg sublingual Q5M PRN 12/04/21 10/12/24 tablet aspirin 81 mg tablet,delayed 81 mg PO DAILY 09/21/22 03/07/23 release (Adult Aspirin Regimen) ipratropium 0.5 mg-albuterol 3 mg 3 ml inhalation QID PRN 09/21/22 10/12/24 (2.5 mg base)/3 mL nebulization soln metoprolol tartrate 50 mg tablet 50 mg PO BID 09/21/22 10/12/24 omeprazole magnesium 20 mg 20 mg PO DAILY 09/21/22 10/12/24 tablet,delayed release (Prilosec OTC) Previous Rx's ?Medication ?Instructions ?Recorded aspirin 81 mg chewable tablet 81 mg PO BID for DVT prophylaxis 09/21/22 (Aspirin Childrens) 30 days #60 tabs methylprednisolone 4 mg tablets in See Rx Instructions PO .COMPLEX 10/12/24 a dose pack (Medrol (Rajeev)) #21 ea Allergies Allergy/AdvReac Type Severity Reaction Status Date / Time No Known Drug Allergies Allergy Verified 10/12/24 19:28 Review of Systems Status of ROS: Reports: 10 or more systems reviewed and unremarkable except as noted in History and below Narrative: Constitutional: No fevers, no weight gain or loss. Eyes: No discharge. No vision changes. HENT: No congestion, no sore throat, no ear pain. Cardiovascular: No chest pain, no palpitations. Respiratory: No shortness of breath, no wheezes, no cough. Gastrointestinal: No abdominal pain, no vomiting, no diarrhea. Genitourinary: No dysuria, no hematuria. Musculoskeletal: Left sided neck pain. Skin: No rashes, no pruritis. Neurological: No dizziness, weakness, sensory change, speech change. Endo/Heme/Allergies: No bruising or bleeding. No polydipsia. Pysch: no suicidality, no anxiety, no insomnia. All other systems reviewed and are negative. PFSH PFS Medical History Osteoarthritis of right hip ?M16.11 - Unilateral primary osteoarthritis, right hip (ICD-10) ELISSA (obstructive sleep apnea) ?G47.33 - Obstructive sleep apnea (adult) (pediatric) (ICD-10) Hx of coronary angiogram ?Z98.890 - Other specified postprocedural states (ICD-10) Hypertension ?I10 - Essential (primary) hypertension (ICD-10) Heart attack ?I21.9 - Acute myocardial infarction, unspecified (ICD-10) Coronary artery disease ?I25.10 - Atherosclerotic heart disease of [place] coronary artery without angina pectoris (ICD-10) Depression ?F32.A - Depression, unspecified (ICD-10) COPD (chronic obstructive pulmonary disease) ?J44.9 - Chronic obstructive pulmonary disease, unspecified (ICD-10) Arthritis ?M19.90 - Unspecified osteoarthritis, unspecified site (ICD-10) Surgical History History of total right hip replacement (09/21/22) ?Z96.641 - Presence of right artificial hip joint (ICD-10) Hx of cataract extraction ?Z98.49 - Cataract extraction status, unspecified eye (ICD-10) H/O hand surgery ?Z98.890 - Other specified postprocedural states (ICD-10) H/O heart artery stent ?Z95.5 - Presence of coronary angioplasty implant and graft (ICD-10) 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) ?Z96.642 - Presence of left artificial hip joint (ICD-10) Family History Brother Parkinson disease Mother Colon cancer Stomach cancer Sister High blood pressure Father Myocardial infarction Social History Smoking Status: Former smoker What tobacco products do you use: cigarettes Smoking packs per day: 1 Smoking cigarettes per day: 20.0 Years smoked: 30 Smoking pack-years: 30.00 Smoking quit date/years: <= 15 years ago Do you use any of these nicotine containing products: None Second hand tobacco smoke exposure: No How often do you have a drink containing alcohol: never AUDIT-C Alcohol total score: 0 Non-prescribed substance use: denies use Caffeine: Yes (coffee, 1 cup/AM) service: Yes Exam Narrative: Exam Narrative: Constitutional: Well-developed, well-nourished, no acute distress. HEENT: Normocephalic, atraumatic. Neck: No midline tenderness. Pain is in the left posterior and lateral aspect of the musculature of his neck. Heart: Regular. No murmurs. Normal rate. Intact distal pulses. Lungs: Clear to auscultation. No chest discomfort. No wheezes, rhonchi, or rales. Abdomen: Normal bowel sounds. Nontender. No rebound tenderness. Genitalia: Deferred. Back: No midline tenderness. Normal range of motion. Extremities: Normal range of motion. No injury. Skin: Intact. No rash. Warm. No erythema or pallor. Neurologic: No altered sensation. No weakness. Alert and oriented. Psychiatric: No suicidality. No anxiety or depression. No insomnia. Nursing notes and vitals signs are reviewed. Const: Vital Signs, click to edit/add: Vital Signs - 24 hr 10/12/24 19:24 Temperature 98.6 F Pulse Rate [Pulse Oximeter] 64 Respiratory Rate 20 Blood Pressure [Le ft Upper Arm] 203/78 H Pulse Oximetry 96 Oxygen Delivery Me thod Room Air Course Vital Signs Vital signs: Initial Vital Signs Temperature 98.6 F 10/12/24 19:24 Temperature Source Temporal Artery Scan 10/12/24 19:24 Pulse Rate 64 10/12/24 19:24 Respiratory Rate 20 10/12/24 19:24 Blood Pressure 203/78 H 10/12/24 19:24 Blood Pressure Mean 119 H 10/12/24 19:24 Blood Pressure Position Sitting 10/12/24 19:24 Pulse Oximetry 96 10/12/24 19:24 Oxygen Delivery Method Room Air 10/12/24 19:24 Vital Signs Temperature 98.6 F 10/12/24 19:24 Pulse Rate 64 10/12/24 19:24 Respiratory Rate 20 10/12/24 19:24 Blood Pressure 203/78 H 10/12/24 19:24 Pulse Oximetry 96 10/12/24 19:24 Oxygen Delivery Method Room Air 10/12/24 19:24 Temperature 98.6 F 10/12/24 19:24 Pulse Rate 64 10/12/24 19:24 Respiratory Rate 20 10/12/24 19:24 Blood Pressure 203/78 H 10/12/24 19:24 Pulse Oximetry 96 10/12/24 19:24 Oxygen Delivery Method Room Air 10/12/24 19:24 Medical Decision Making MDM Narrative Medical decision making narrative: This patient comes in with neck pain as described above. He is not showing obvious symptoms of a cervical radiculopathy. There was not any mechanism of injury that mandates imaging at this time. I did describe criteria for managing blood pressure. He is not requiring immediate treatment for his current blood pressure but will be able to monitor this. The patient did receive an intramuscular injection of Toradol. He also received prescriptions for Medrol Dosepak, Toradol, and Flexeril. ECG Data Attestation: I personally reviewed and interpreted this ECG as follows: Interpretation: Normal sinus rhythm. Rate is 66 beats per minute. There are no ST or T-wave abnormalities. Discharge Plan Discharge Clinical Impression: Muscle spasms of neck Patient Disposition: Home, Self-Care Condition: Stable Additional Instructions: Take medications as prescribed. Follow up with MD or return if worsening symptoms occur. Prescriptions: New methylprednisolone [Medrol (Rajeev)] 4 mg tablets,dose pack See Rx Instructions .ROUTE .COMPLEX Qty: 21 0RF Rx Instructions: orally per package directions No Action nitroglycerin 0.4 mg tablet, sublingual 0.4 mg sublingual Q5M PRN Rx Instructions: PRN CHEST PAIN atorvastatin 80 mg tablet 80 mg PO HS omeprazole magnesium [Prilosec OTC] 20 mg tablet,delayed release (DR/EC) 20 mg PO DAILY metoprolol tartrate 50 mg tablet 50 mg PO BID ipratropium-albuterol 0.5 mg-3 mg(2.5 mg base)/3 mL solution for nebulization 3 ml inhalation QID PRN aspirin [Adult Aspirin Regimen] 81 mg tablet,delayed release (DR/EC) 81 mg PO DAILY aspirin [Aspirin Childrens] 81 mg tablet,chewable 81 mg PO BID 30 Days Qty: 60 0RF Follow Up/Referrals: Jack Mullen MD [Primary Care Provider, Family Practice] Stand Alone Forms: [employer] Info Instructions
== END 2024-10-12 20:43 | disposition home or self-care (01) ==
PROVIDERS: Emergency Provider Emergency Medicine Emergency Medical Services; PCP Family Medicine
DX: M54.2 Cervicalgia (principal); M62.838 Other muscle spasm
CPT/HCPCS: 96372; 99283; 99284; J1885